=== PATIENT | male | born 1935 | race Caucasian/White ===

== ENCOUNTER 2017-08-08 05:44 | Inpatient (IN) | payer MEDICARE, SELFPAY ==
[2017-08-08] VITALS (36 sets, daily range): BP systolic 85–180; BP diastolic 52–86; PULSE 54–88; RESP 13–25; TEMP 36.7; O2SAT 92–99; BMI 24.3; BMI 23.8
--- NOTE | 2017-08-08 06:01 | EKG12_ITS ---
Test Reason : CP Blood Pressure : / mmHG Vent. Rate : 056 BPM Atrial Rate : 056 BPM P-R Int : 186 ms QRS Dur : 090 ms QT Int : 494 ms P-R-T Axes : 032 -18 -21 degrees QTc Int : 476 ms Sinus bradycardia Nonspecific ST abnormality Abnormal ECG Confirmed by VIRGINIA FERNANDEZ ([id number]), content editor DIONTE FIELDS ([id number] on 08/13/2017 2:52:11 PM Referred By: GABRIEL Confirmed By:VIRGINIA FERNANDEZ
[2017-08-08] MEDS: Morphine 4 MG/ML Syringe IV (06:06)
[2017-08-08 06:10] LABS: Absolute Lymphocyte Count 1.38 X10^3/ul (0.83-4.51); Basophil# 0.02 X10^3/uL; Basophil% 0.5 % (0-1); Eosinophil# 0.19 X10^3/uL; Eosinophils% 4.6 % (0-5); Hematocrit 36.4 % (40-54); Lymphocyte # 1.38 X10^3/ul (4.0); Lymphocyte % 33.6 % (19-41); Mean Corpuscular Hgb 29.2 pg (27.0-32.0); Mean Corpuscular Volume 88.6 fL (80-94); Mean Platelet Vol. 9.1 fl (6.2-12.0); Monocyte# 0.52 X10^3/uL; Monocyte% 12.7 % (0-10); Neutrophil # 1.99 X10^3/uL (2.7-7.7); Neutrophil % 48.4 % (47-70); Platelet Count 297 K/mm3 (150-450); RBC Distribution Width CV 12.5 % (11.6-14.6); RBC Distribution Width SD 39.7 fl (35.1-43.9); Red Blood Count 4.11 M/mm3 (4.6-6.2); White Blood Count 4.1 K/mm3 (4.4-11.0)
[2017-08-08 06:12] LABS: POSITIVE COUNT NO; POSITIVE DIFFERENTIAL NO; POSITIVE MORPHOLOGY NO
--- NOTE | 2017-08-08 06:20 | RAD_ITS ---
STUDY: X-RAY CHEST REASON FOR EXAM: Male, 81 years old. chest pain this morning that woke him from his sleep TECHNIQUE: Single AP portable view of the chest. COMPARISON: None. FINDINGS: Subsegmental atelectases are noted in the right and left lung bases. There is no demonstrated pleural abnormality. Normal size heart. Normal mediastinum and natali. Normal visualized pulmonary arteries. There is atherosclerotic calcification of the aortic arch with tortuosity. Normal visualized thoracic spine. There is degenerative osteoarthritis of the bilateral shoulders. There is no demonstrated abnormality of the visualized soft tissue structures of the upper abdomen. RAD/Chest 1 View (Portable) IMPRESSION: Degenerative changes, as described above. No demonstrated acute cardiopulmonary process. Electronically Signed: Silvano Shields MD at 7:10 EDT Tel , Service support ,
[2017-08-08 06:24] LABS: Anion Gap 7 (5-15); BUN 20 mg/dL (7-18); BUN/Creat Ratio 20.7 RATIO (10-20); Calcium,Total 8.3 mg/dL (8.5-10.1); Chloride 109 mmol/L (98-107); Creatinine, Serum 0.97 mg/dL (0.70-1.30); EST Glomerular Filtration Rate 80 mL/min (>60); Est Glom Filt Rate - Afr Amer 96 mL/min (>60); Estimated Creatinine Clearance 61.75 ml/min; Glucose 131 mg/dL (74-106); Potassium 3.4 mmol/L (3.5-5.1); Sodium Level 141 mmol/L (136-145)
--- NOTE | 2017-08-08 06:35 | ED.DCSUM_ITS ---
- ER Visit Summary Date of Service: 08/08/17 Chief Complaint: [] Chest pain History of Present Illness: The patient is a 81 M with chest pain for the last hour and a half that woke him up from sleep continuous pressure in the middle of his chest moderate severity relieved by nitroglycerin ?3 given by paramedics. Also given aspirin by paramedics. Associated with some mild diaphoresis. No recent stress test. He had 3 stents placed approximately 10 years ago at [facility]. He sees Dr. Tafoya. Physical Examination: Vital signs reviewed General: Well-nourished well-developed Head: Normocephalic atraumatic Eyes: Pupils equal round and reactive to light extraocular movements intact ENT: TMs clear no hemotympanum no trauma Neck: Nontender full range of motion Cardiovascular: Regular rate rhythm no murmurs normal S1-S2 Respiratory: No distress clear to auscultation bilaterally chest nontender Abdomen: Soft nontender nondistended normal bowel sounds no masses Back: Nontender no CVA tenderness Extremities: Nontender active range of motion ?4 extremities no trauma Skin: Normal color no trauma Neuro alert oriented cranial nerves II through XII intact normal strength sensation reflexes Test Results: [] Emergency Department Course and Treatment: [] EKG shows sinus rhythm at a rate of 56. T-wave inversion inferior lead III and aVF. No acute STEMI. This is changed from previous. CBC normal except white count 4.1. Hemoglobin 12.0. Chemistries normal except potassium 3.4. Chloride 109. Troponin 0 0.03. Chest x-ray showed nothing acute. Patient given morphine IV. Discussed with Dr. Mcgregor fax the EKGs initially. At this time no evidence of STEMI. I feel the patient should be admitted. Will forward to the ER to see the patient. At this time we gave another dose of fentanyl for pain and also Brilinta. At this time patient likely has unstable angina. He is going to take the patient to the [facility]. Will discuss with the hospitalist. Treatment Plan: [] Disposition: [] Impression: [] UnStable angina This note was generated with [employer] dictation software. It may contain incorrect words, spelling, and punctuation that were not noted in review of the chart prior to signing ED Disposition - Plan for ED Patient: Chief Complaint: Chest Pain Referrals: Adrian Galeana MD [Primary Care Provider] -
[2017-08-08] MEDS: fentaNYL 100 MCG/2 ML Ampul 50 MCG IV (06:44)
[2017-08-08] MEDS: TICAGRELOR 90 MG TABLET 180 MG PO (06:47)
--- NOTE | 2017-08-08 06:47 | PCM.HP.STD ---
Problem List (1) Unstable angina Status: Acute (2) Asthma Status: Chronic Qualifiers: Asthma persistence: unspecified Asthma complication type: unspecified (3) BPH (benign prostatic hyperplasia) Status: Chronic Qualifiers: Lower urinary tract symptom presence: unspecified whether lower urinary tract symptoms present Qualified Code(s): N40.0 - Benign prostatic hyperplasia without lower urinary tract symptoms (4) CAD (coronary artery disease) Status: Chronic Qualifiers: Coronary Disease-Associated Artery/Lesion type: unspecified vessel or lesion type [place] vs. transplanted heart: unspecified whether [place] or transplanted heart Associated angina: angina presence unspecified Qualified Code(s): I25.10 - Atherosclerotic heart disease of [place] coronary artery without angina pectoris Comment: stents (5) HTN (hypertension) Status: Chronic Qualifiers: Hypertension type: essential hypertension Qualified Code(s): I10 - Essential (primary) hypertension (6) HLD (hyperlipidemia) Status: Chronic Qualifiers: Hyperlipidemia type: unspecified Qualified Code(s): E78.5 - Hyperlipidemia, unspecified (7) Allergic rhinitis Status: Chronic Qualifiers: Allergic rhinitis trigger: unspecified Allergic rhinitis seasonality: unspecified seasonality Qualified Code(s): J30.9 - Allergic rhinitis, unspecified History of Present Illness Date of Admission: 08/08/17 Chief Complaint: Chest pain The patient is a 81 y/o M w/ PMHx: Asthma, BPH, CAD s/p PCI x 3 (PCI x 2 2005 and PCI x 2 2013) following w/ Dr. Bowman, HTN, HLD, Allergic Rhinitis who presents to the [facility] ED on 08/08/17 with onset of chest pressure and pain to the substernal region without radiation, awakening him from sleep, rated 7 out of 10 initially with associated diaphoresis with improvement per EMS and ED treatment to 5 out of 10 upon evaluation. In the emergency room workup included T 98, heart rate 58, BP 108/70, respiratory rate 17, 92% on room air, CBC with WBC 4.1, hemoglobin 12, platelets 297 with increased mono percent otherwise unremarkable, BMP with calcium 3.4, chloride 109, BUN/creatinine 20/0.97, glucose 131, trop 0.03, EKG with new T-wave inversions in the inferior leads, chest x-ray unremarkable. In the emergency room given findings cardiology consulted and requested administration of Brilinta loading dose in addition to fentanyl for pain secondary to lower blood pressure. Patient proceeded from the emergency room to the cardiac catheterization lab remarkable for patent previously placed stents in the LAD and left circumflex artery with severe diffuse disease of his small second diagonal vessel and ostial 90% posterior lateral right coronary artery stenosis with immediate PCI intervention successful PTCA/BS of the right posterior AV branch, successful PCI with PTCA to the ostial PL branch of RCA, successful PTCA/SKYE of the proximal LCx. Following intervention patient transitioned to the intensive care unit. Past Medical History Past Medical History (Chronic Problems): Chronic Problems HTN (hypertension) (Chronic) HLD (hyperlipidemia) (Chronic) Allergic rhinitis (Chronic) Asthma (Chronic) BPH (benign prostatic hyperplasia) (Chronic) CAD (coronary artery disease) (Chronic) stents Allergies Penicillins Allergy (Verified 08/08/17 05:45) Hives ANTI Adverse Reaction (Uncoded 08/08/17 05:45) Unknown D/T PROSTATE PROBLEMS, ADVISED NOT TO USE ANTIHISTAMINES Home Medications: Ambulatory Orders Medication Instructions Recorded Aspirin [Aspirin, Baby] 81 mg PO DAILY@0800 06/07/13 Metoprolol Tartrate [Lopressor 12.5 mg PO BID 06/07/13 (beta christiana)] Simvastatin [Zocor] 10 mg PO QHS 06/07/13 Acetaminophen [Tylenol] 500 mg PO LUNCH 07/23/13 Nitroglycerin [Nitrostat] 0.4 mg SUBLINGUAL Q5M PRN 07/23/13 Psyllium [Metamucil] 1 packet PO DAILY 07/23/13 Fluticasone Propionate [Flonase 1 spray NS QHS 11/11/14 Allergy Relief] Acetaminophen [Tylenol Extra 1,000 mg PO BREAKFAST 08/08/17 Strength] Acetaminophen [Tylenol Extra 1,000 mg PO DINNER 08/08/17 Strength] Acetaminophen [Tylenol Extra 500 mg PO QHS 08/08/17 Strength] Finasteride [Proscar] 5 mg PO DAILY 08/08/17 Omeprazole [Omeprazole] 20 mg PO DAILY 08/08/17 Surgical History: TURP, - - coronary stents X2 Psychiatric History: No pertinent psych hx Lives: Spouse/ Significant Other Smoking Status: Never smoker Tobacco Use: Non-smoker Alcohol: Occasional Drugs: None - *Family History Maternal History Items: - - Patient is a maternal family history of heart disease. Paternal History Items: Unknown Review of Systems Constitutional: Reports: Fatigue. Denies: Chills, Fever, Weight Change HEENT: Denies: Head Aches, Sinus Congestion, Sinus Drainage Cardiovascular: Reports: Chest Pain, Chest Pressure, Chest Tightness, Heaviness. Denies: Light Headedness, Orthopnea, Palpitations, Syncope Respiratory: Denies: Cough, Shortness of Breath, Shortness of breath at rest, Shortness of breath upon exertion, Sputum production Gastrointestinal: Denies: Abdominal Pain, Nausea, Vomiting Genitourinary: Denies: Dysuria Musculoskeletal: Denies: Joint Pain, Joint Tenderness Skin: Denies: Rash, Wounds Neurological: Denies: Numbness, Tingling, Focal weakness Psychiatric: Denies: Anxiety, Depression, Homicidal Ideations, Suicidal Ideations Hematologic/ Lymphatic: Denies: Easy Bruising, Easy Bleeding VTE Information - Inpt Only VTE Present on Admission: No VTE Mechan Device Prophylaxis: SCD's VTE Pharm Prophylaxis ordered?: Yes Patient Problems: Active and Suspected Problems Unstable angina (Acute) Subjective: Seated upright in the ED bed, moderately uncomfortable appearing, notes still 5 out of 10 chest pressure and discomfort. Objective: Physical Examination: General: awake, alert, oriented x 3 and cooperative, seated upright in the ED bed in no apparent distress, moderately uncomfortable appearing, fatigued. Skin: normal color, turgor, no icterus, cyanosis. HEENT: AT/NC, EOMI, PERRLA, mildly dry MM, no carotid bruits or JVD noted. Lungs: CTA bilaterally, moderate effort, mild decrease BL bases, no rales, ronchi or wheezing. Heart: Regular rate and rhythm; no gallop, rub audible. Abdomen: soft, NTTP, ND, normal BS, no HSM. Extremities: no cyanosis, clubbing, or edema. Neurological: patient awake, alert, oriented x 3; cognitive function intact; pupils equally reactive to light and accomodation; cranial nerves II-XII grossly normal, moving all 4 extremities, no focal deficits, strength moderately globally decreased secondary to acute presentation. Psychiatric: affect appears normal, no acute evidence of depressive or anxiety feelings. - Physical Exam Vital Signs Temp Pulse Resp BP Pulse Ox 98.0 F 58 L 17 108/70 98 08/08/17 05:47 08/08/17 05:47 08/08/17 05:47 08/08/17 05:47 08/08/17 06:10 Oxygen Flow Rate (L/min) 2 Oxygen Delivery Method Nasal Cannula Weight: 164 lb 10.965 oz Body Mass Index (BMI) 24.3 Laboratory Tests Past 24 Hrs 08/08/17 08/08/17 05:50 05:50 WBC 4.1 L RBC 4.11 L Hgb 12.0 L Hct 36.4 L MCV 88.6 MCH 29.2 MCHC 33.0 RDW 12.5 RDW Differential 39.7 Plt Count 297 MPV 9.1 Immature Gran % (Auto) 0.200 Neut % (Auto) 48.4 Lymph % (Auto) 33.6 [place] % (Auto) 12.7 H Eos % (Auto) 4.6 Baso % (Auto) 0.5 Absolute Neuts (auto) 2.0 Absolute Lymphs (auto) 1.38 Total Counted Not Reportable Sodium 141 Potassium 3.4 L Chloride 109 H Carbon Dioxide 25.0 Anion Gap 7 BUN 20 H Creatinine 0.97 Estim Creat Clear Calc 61.75 Est GFR (MDRD) Af Amer 96 Est GFR (MDRD) Non-Af 80 BUN/Creatinine Ratio 20.7 H Glucose 131 H Calcium 8.3 L Troponin I 0.03 Assessment/Plan Active and Suspected Problems Unstable angina (Acute) The patient is a 81 y/o M w/ PMHx: Asthma, BPH, CAD s/p PCI x 3 (PCI x 2 2005 and PCI x 2 2013) following w/ Dr. Bowman, HTN, HLD, Allergic Rhinitis who presents to the [facility] ED on 08/08/17 with onset of chest pressure and pain to the substernal region without radiation, awakening him from sleep, rated 7 out of 10 initially with associated diaphoresis with improvement per EMS and ED treatment to 5 out of 10 upon evaluation. (1) Chest Pain secondary to Unstable Angina, Acute Coronary Syndrome w/ severe diffuse disease of the small second diagonal vessel and ostial posterior lateral right coronary artery: In the emergency room given findings cardiology consulted and requested administration of Brilinta loading dose in addition to fentanyl for pain secondary to lower blood pressure. Patient proceeded from the emergency room to the cardiac catheterization lab remarkable for patent previously placed stents in the LAD and left circumflex artery with severe diffuse disease of his small second diagonal vessel and ostial 90% posterior lateral right coronary artery stenosis with immediate PCI intervention successful PTCA/BS of the right posterior AV branch, successful PCI with PTCA to the ostial PL branch of RCA, successful PTCA/SKYE of the proximal LCx. Following intervention patient transitioned to the intensive, will maintain on a monitored bed to assure no acute myocardial infarction with serial cardiac enzymes and EKGs. Will obtain ECHO. Will continue medical therapy w/ indefinite aspirin, brillinta x 12 months, outpatient cardiac rehabilitation and post interventional care. Mag level pending. FLP in AM. Changed to high dose statin. ASA, NG, morphine. (2) CAD: s/p CAD s/p PCI x 3 w/ PCI x 2 2005 and PCI x 2 2013, following w/ Dr. Bowman, maintain on home asa, added brillinta, increased statin, continued BB. (3) Chronic Asthma w/ Allergic Rhinitis: Maintain on home regimen fluticasone, PRN albuterol, HOB, IS parameters. (4) Hypertension: Continue home regimen including prolonged, add low-dose DUY inhibitor if necessary, PRN hydralazine. (5) Hyperlipidemia: We will change to higher dose statin therapy given current presentation, FLP in AM. (6) BPH: s/p TURP history, not on regimen, if needed may add flomax. (7) DVT Prophylaxis: SCDs, recent heparin load, brillinta load. Code Visit Inpatient E&M: 05229 Init Hosp L3
--- NOTE | 2017-08-08 06:47 | PCM.CONS.C ---
Reason for Consult Date of Consultation: 08/08/17 Reason for Consultation: Chest discomfort. History of Present Illness: The patient is a 81 year old M with a history of known coronary artery disease and hyperlipidemia probable hypertension patient previously been seen by Dr. Powers of the [facility]. He says that he woke up this morning at about 4:00 with chest discomfort which was in his throat. He called the emergency medical squad and they give him 4 baby aspirin and then brought him to the emergency room. I was called at about 615 to look at an EKG. The patient was still noted to be having mild chest discomfort at that time. He says that he did not break out in a sweat no nausea no dizziness and no palpitations. The chest discomfort was described as a heaviness. He has not previously been on antiplatelet medication. He was seen in the emergency room by me and was noted to have minimal to no chest discomfort. A decision was made based on the EKG as well as his clinical findings to treat him as an acute coronary syndrome. He says that he has received 4 stents in the past at [facility]. [] Past Medical History Allergies/Adverse Reactions: Allergies Penicillins Allergy (Verified 08/08/17 05:45) Hives ANTI Adverse Reaction (Uncoded 08/08/17 05:45) Unknown D/T PROSTATE PROBLEMS, ADVISED NOT TO USE ANTIHISTAMINES Home Medications: Ambulatory Orders Medication Instructions Recorded Aspirin [Aspirin, Baby] 81 mg PO DAILY@0800 06/07/13 Metoprolol Tartrate [Lopressor 12.5 mg PO BID 06/07/13 (beta christiana)] Simvastatin [Zocor] 10 mg PO QHS 06/07/13 Acetaminophen [Tylenol] 500 mg PO 4X/DAY 07/23/13 Nitroglycerin [Nitrostat] 0.4 mg SUBLINGUAL Q5M PRN 07/23/13 Psyllium [Metamucil] 1 packet PO DAILY 07/23/13 Fluticasone Propionate [Flonase 1 spray NS QHS 11/11/14 Allergy Relief] Past Medical History (Chronic Problems): Chronic Problems Asthma (Chronic) BPH (benign prostatic hyperplasia) (Chronic) CAD (coronary artery disease) (Chronic) stents Surgical History: TURP, - - coronary stents X2 Smoking Status: Never smoker Alcohol: None Drugs: None Review of Systems - Review of Systems General: Denies: Fever, Night Sweats, Fatigue Cardiovascular: Reports: Chest Discomfort at Rest, Chest Pressure, Chest Tightness. Denies: Chest Discomfort, Shortness of Breath, Orthopnea, PND, Peripheral Edema, Palpitations, Lightheadedness, Dizziness, Near Syncope, Syncope Respiratory: Denies: Cough, Sputum Production, Hemoptysis Gastrointestinal: Denies: Hematemesis, Hematochezia, Melena Genitourinary: Denies: Dysuria, Hematuria Skin: Denies: Rash Subjectve: Patient seen and evaluated pleasant gentleman in no distress Objective: Vital Signs Temp Pulse Resp BP Pulse Ox 98.0 F 58 L 17 108/70 98 08/08/17 05:47 08/08/17 05:47 08/08/17 05:47 08/08/17 05:47 08/08/17 06:10 Oxygen Flow Rate (L/min) 2 Oxygen Delivery Method Nasal Cannula Weight: 164 lb 10.965 oz Body Mass Index (BMI) 24.3 General: Awake, Alert, Oriented x 3 HEENT: PERRL, EOMI, Sclera Non Icteric Neck: Supple, Good ROM, No Lymph Node Enlargement Lungs: Clear to auscultation Cardiovascular: Regular Rhythm, Normal S1, Normal S2, No Murmurs, No Rubs, No Gallops Vascular: No Carotid Bruits, Normal Femoral Pulses, Normal Radial Pulses, Normal Dorsalis Pedal Pulse, Normal Posterior Tibial Pulses Abdomen: Bowel Sounds Present, Soft, Non Tender, No HSM, No Organomegaly Extremities: No Cyanosis, No Clubbing, No edema Neurological: No Focal Motor or Sensory Deficit 08/08/17 05:50: WBC 4.1 L, RBC 4.11 L, Hgb 12.0 L, Hct 36.4 L, MCV 88.6, MCH 29.2, MCHC 33.0, RDW 12.5, RDW Differential 39.7, Plt Count 297, MPV 9.1, Immature Gran % (Auto) 0.200, Neut % (Auto) 48.4, Lymph % (Auto) 33.6, [place] % (Auto) 12.7 H, Eos % (Auto) 4.6, Baso % (Auto) 0.5, Absolute Neuts (auto) 2.0, Total Counted Not Reportable 08/08/17 05:50: Sodium 141, Potassium 3.4 L, Chloride 109 H, Carbon Dioxide 25.0, Anion Gap 7, BUN 20 H, Creatinine 0.97, Est GFR (MDRD) Af Amer 96, Est GFR (MDRD) Non-Af 80, BUN/Creatinine Ratio 20.7 H, Glucose 131 H, Calcium 8.3 L, Troponin I 0.03 Rhythm: EKG: Sinus bradycardia with a rate of [address] depression noted in leads II, III and aVF. Assessment/Plan 1. Acute coronary syndrome unstable angina. Patient presents with chest discomfort and subtle EKG changes with currently minimal troponin elevation and minimal chest discomfort. It appears that this is new onset out suggest that he be treated with aspirin and Brilinta and would recommend urgent cardiac catheterization. I have discussed the above with the patient and his and they understand and agreed to proceed. The emergency room in the [facility] have both been notified and he will be transported to the Cardiothoracic Surgeon as soon as possible. Depending on the findings further recommendations will be made. 2. Hyperlipidemia He will continue on his statin with a high intensity statin. Thank you for allowing me to participate in the care of your patient. Please don't hesitate to call if any issues arise
--- NOTE | 2017-08-08 06:52 | CON.PCM_ITS ---
Reason for Consult Date of Consultation: 08/08/17 Reason for Consultation: Chest discomfort. History of Present Illness: The patient is a 81 year old M with a history of known coronary artery disease and hyperlipidemia probable hypertension patient previously been seen by Dr. Powers of the [facility]. He says that he woke up this morning at about 4:00 with chest discomfort which was in his throat. He called the emergency medical squad and they give him 4 baby aspirin and then brought him to the emergency room. I was called at about 615 to look at an EKG. The patient was still noted to be having mild chest discomfort at that time. He says that he did not break out in a sweat no nausea no dizziness and no palpitations. The chest discomfort was described as a heaviness. He has not previously been on antiplatelet medication. He was seen in the emergency room by me and was noted to have minimal to no chest discomfort. A decision was made based on the EKG as well as his clinical findings to treat him as an acute coronary syndrome. He says that he has received 4 stents in the past at [facility]. [] Past Medical History Allergies/Adverse Reactions: Allergies Penicillins Allergy (Verified 08/08/17 05:45) Hives ANTI Adverse Reaction (Uncoded 08/08/17 05:45) Unknown D/T PROSTATE PROBLEMS, ADVISED NOT TO USE ANTIHISTAMINES Home Medications: Ambulatory Orders Medication Instructions Recorded Aspirin [Aspirin, Baby] 81 mg PO DAILY@0800 06/07/13 Metoprolol Tartrate [Lopressor 12.5 mg PO BID 06/07/13 (beta christiana)] Simvastatin [Zocor] 10 mg PO QHS 06/07/13 Acetaminophen [Tylenol] 500 mg PO 4X/DAY 07/23/13 Nitroglycerin [Nitrostat] 0.4 mg SUBLINGUAL Q5M PRN 07/23/13 Psyllium [Metamucil] 1 packet PO DAILY 07/23/13 Fluticasone Propionate [Flonase 1 spray NS QHS 11/11/14 Allergy Relief] Past Medical History (Chronic Problems): Chronic Problems Asthma (Chronic) BPH (benign prostatic hyperplasia) (Chronic) CAD (coronary artery disease) (Chronic) stents Surgical History: TURP, - - coronary stents X2 Smoking Status: Never smoker Alcohol: None Drugs: None Review of Systems - Review of Systems General: Denies: Fever, Night Sweats, Fatigue Cardiovascular: Reports: Chest Discomfort at Rest, Chest Pressure, Chest Tightness. Denies: Chest Discomfort, Shortness of Breath, Orthopnea, PND, Peripheral Edema, Palpitations, Lightheadedness, Dizziness, Near Syncope, Syncope Respiratory: Denies: Cough, Sputum Production, Hemoptysis Gastrointestinal: Denies: Hematemesis, Hematochezia, Melena Genitourinary: Denies: Dysuria, Hematuria Skin: Denies: Rash Subjectve: Patient seen and evaluated pleasant gentleman in no distress Objective: Vital Signs Temp Pulse Resp BP Pulse Ox 98.0 F 58 L 17 108/70 98 08/08/17 05:47 08/08/17 05:47 08/08/17 05:47 08/08/17 05:47 08/08/17 06:10 Oxygen Flow Rate (L/min) 2 Oxygen Delivery Method Nasal Cannula Weight: 164 lb 10.965 oz Body Mass Index (BMI) 24.3 General: Awake, Alert, Oriented x 3 HEENT: PERRL, EOMI, Sclera Non Icteric Neck: Supple, Good ROM, No Lymph Node Enlargement Lungs: Clear to auscultation Cardiovascular: Regular Rhythm, Normal S1, Normal S2, No Murmurs, No Rubs, No Gallops Vascular: No Carotid Bruits, Normal Femoral Pulses, Normal Radial Pulses, Normal Dorsalis Pedal Pulse, Normal Posterior Tibial Pulses Abdomen: Bowel Sounds Present, Soft, Non Tender, No HSM, No Organomegaly Extremities: No Cyanosis, No Clubbing, No edema Neurological: No Focal Motor or Sensory Deficit 08/08/17 05:50: WBC 4.1 L, RBC 4.11 L, Hgb 12.0 L, Hct 36.4 L, MCV 88.6, MCH 29.2, MCHC 33.0, RDW 12.5, RDW Differential 39.7, Plt Count 297, MPV 9.1, Immature Gran % (Auto) 0.200, Neut % (Auto) 48.4, Lymph % (Auto) 33.6, [place] % ( Auto) 12.7 H, Eos % (Auto) 4.6, Baso % (Auto) 0.5, Absolute Neuts (auto) 2.0, Total Counted Not Reportable 08/08/17 05:50: Sodium 141, Potassium 3.4 L, Chloride 109 H, Carbon Dioxide 25.0 , Anion Gap 7, BUN 20 H, Creatinine 0.97, Est GFR (MDRD) Af Amer 96, Est GFR ( MDRD) Non-Af 80, BUN/Creatinine Ratio 20.7 H, Glucose 131 H, Calcium 8.3 L, Troponin I 0.03 Rhythm: EKG: Sinus bradycardia with a rate of [address] depression noted in leads II , III and aVF. Assessment/Plan 1. Acute coronary syndrome unstable angina. Patient presents with chest discomfort and subtle EKG changes with currently minimal troponin elevation and minimal chest discomfort. It appears that this is new onset out suggest that he be treated with aspirin and Brilinta and would recommend urgent cardiac catheterization. I have discussed the above with the patient and his and they understand and agreed to proceed. The emergency room in the [facility] have both been notified and he will be transported to the [facility] as soon as possible. Depending on the findings further recommendations will be made. 2. Hyperlipidemia He will continue on his statin with a high intensity statin. Thank you for allowing me to participate in the care of your patient. Please don't hesitate to call if any issues arise
--- NOTE | 2017-08-08 06:56 | NURSING ---
VERBAL REPORT GIVEN TO ASHLEY BABB FROM THE DIRECT SERVICE PROFESSIONAL FOR THIS PATIENT PRIOR TO LEAVING.
--- NOTE | 2017-08-08 07:03 | ECHOD_ITS ---
Reason For Study: CAD/ASHD Procedure This was a 2D Doppler, Color Flow transthoracic echocardiogram. The study was technically difficult. Due to respiratory interference. Exam performed portable in patient room. Left Ventricle Normal size and thickness. The estimated ejection fraction is 60 %. Stage 1 diastolic dysfunction. Mid-Posterior: Mildly hypokinetic. Lateral-Basal: Mildly hypokinetic. Right Ventricle Normal size and thickness. Normal systolic function. Atria Normal left atrium. Normal right atrium. Normal atrial septum. Mitral Valve The mitral valve is structurally normal. No prolapse or stenosis seen. Trivial mitral valve insufficiency. Tricuspid Valve Normal tricuspid valve. Trivial tricuspid valve insufficiency. Right ventricular systolic pressure estimated to be 29 mmHg. Aortic Valve Trisinus/trileaflet aortic valve. Pulmonic Valve Normal pulmonic valve. Great Vessels Normal aortic root. Normal arch. Normal inferior vena cava. Inferior vena cava collapse with sniff. Pericardium/Pleural No pericardial effusion. MMode/2D Measurements & Calculations LVIDd: 4.8 cm IVSd: 0.76 cm Ao root diam: 3.4 cm LVIDs: 3.4 cm LVPWd: 1.0 cm LA dimension: 3.6 cm RVDd: 3.1 cm FS: 28.9 % LAV(MOD-bp): 51.0 ml LA A4 area: 16.5 cm2 RA A4 area: 11.7 cm2 LAV(MOD-bp) Indexed: 26.9 ml/m2 LAV(MOD-sp2): 52.3 ml LAV(MOD-sp4): 46.3 ml Doppler Measurements & Calculations MV E max tani: 74.0 cm/sec Lat Peak E' Tani: 10.8 cm/sec Med Peak E' Tani: 8.5 cm/sec MV A max tani: 86.9 cm/sec E/E' lat: 6.8 E/E' med: 8.7 MV E/A: 0.85 Ao V2 max: 111.0 cm/sec LV V1 max: 99.3 cm/sec PA V2 max: 104.1 cm/sec Ao max P.9 mmHg LV V1 max P.9 mmHg TR max tani: 244.6 cm/sec TR max P.9 mmHg Interpretation Summary The estimated ejection fraction is 60 %. Mid-Posterior: Mildly hypokinetic Lateral-Basal: Mildly hypokinetic Stage 1 diastolic dysfunction. Trivial mitral valve insufficiency. Trivial tricuspid valve insufficiency. Right ventricular systolic pressure estimated to be 29 mmHg. There is no comparison study available. Ordering Physician: Elana De Leon Referring Physician: Adrian Galeana M.D. Performed By: Ashleigh Guzman RDCS, RVT
--- NOTE | 2017-08-08 07:48 | CL.D_ITS ---
Patient Name: CHENCHO DONOVAN Study Date: 08/08/2017 Performing: Alex Mcgregor MD Ht: 68.89 inches 175 cm : 1935 Wt: 165.35 lbs 75 kg Age: 81 Gender: male BSA: 1.9 Amended PROCEDURE(S) PERFORMED [id number]/[id number]/LV CLINICAL PROFILE AND INDICATIONS Indications: ACS <= 24 hrs Heart Failure: None Stress/Imaging Stress/Image Study Performed: No Angina Classification Anginal Classification w/in 2 Weeks: CCS III CAD Presentations: Unstable angina. CONCLUSIONS Previously placed patent stents in the LAD and left circumflex artery with severe diffuse disease of his small second diagonal vessel and ostial 90% posterior lateral right coronary artery stenosis RECOMMENDATIONS Referred for immediate PCI DESCRIPTION OF PROCEDURE The patient arrived to the procedure lab. The risks and benefits of the procedure as well as a full d escription of our services here and current unavailability of surgical backup were fully explained to the patient and/or their significant other prior to the catheterization. The Timeout was completed, verifying the correct patient and procedure. The patient's procedural site was prepped and draped in the usual fashion. Local anesthetic was given subcutaneously to right groin region with Lidocaine 2%. Using a modified Seldinger technique, arterial access was obtained via the right femoral artery, a 5 Fr sheath was inserted. Left Coronary Artery selective angiography was performed in multiple views u sing a 5 Fr. JL 5 catheter. Right Coronary Artery selective angiography was then performed in multipl e views using a 5 Fr. 3DRC (Homer) catheter. Left Ventriculography was performed in FARFAN projection using a 5 Fr. Pigtail catheter. LV to AO pullback pressures were then recorded. CORONARY ANGIOGRAPHY DOMINANCE: Right Dominant LEFT HEART ASSESSMENT Left Ventricular Ejection Fraction: by LV Gram 55 % Normal LV wall motion Normal Left Ventricular systolic function LEFT MAIN: Angiographically normal LEFT ANTERIOR DECENDING ARTERY: Previously placed stent is patent DIAGONAL 1: Proximal - Diffuse disease in the small vessel DIAGONAL 2: Proximal - Diffuse disease in the small vessel CIRCUMFLEX ARTERY: Previously placed stent is patent RIGHT CORONARY ARTERY: Mild luminal irregularities RT PLV: Ostial 90% stenosis % Stenosis COMPLICATIONS PROCEDURE MEDICATIONS Oxygen: 2 L/min via nasal cannula SUMMARY OF HEMODYNAMIC DATA Time AIR REST ECG 07:10:10 AO 99/44 (67) SA 07:23:21 LV 93/15, 17 07:34:28 LV 100/2, 12 07:34:56 LV 99/3, 15 07:36:04 LVp 104/3, 14 07:36:11 AO 107/40 (66) 07:36:17 Signed By Alex Mcgregor MD On 08/08/2017 07:47:38 Alex Mcgregor MD
[2017-08-08 09:39] LABS: Magnesium 2.3 mg/dL (1.6-2.6)
--- NOTE | 2017-08-08 09:39 | CL.I_ITS ---
Patient Name: CHENCHO DONOVAN Study Date: 08/08/2017 Performing: Zacarias Canchola MD Ht: 68.89 inches 175 cm : 1935 Wt: 165.35 lbs 75 kg Age: 81 Gender: male BSA: 1.9 Amended PROCEDURE(S) PERFORMED [id number] W OR WO PTCA, SINGLE CORONARY ARTERY [id number] W OR WO PTCA, SINGLE CORONARY ARTERY [id number], EACH ADD'L CORONARY ART, SAME MAJOR [id number], CORONARY OR GRAFT, INITIAL VESSEL CLINICAL PROFILE AND CO-MORBIDITIES Indications: ACS <= 24 hrs, ACS <= 24 hrs, New Onset Angina <= 2 months, Stable Known CAD Heart Failure: None Stress/Imaging Stress/Image Study Performed: No Stress/Image Study Performed: No Angina Classification Anginal Classification w/in 2 Weeks: CCS III CAD Presentations: Unstable angina. Unstable angina. Comorbidities/Risk Factors: Hypertension Dyslipidemia Prior PCI CONCLUSIONS Successful PTCA/SKYE of the of Right posterior AV branch with a 2.5 x 16 Promus Synergy, post dilated proximally with a 3.0 x 8 NC Balloon; 75%-->0%, no dissection. Successful PCI with PTCA to the ostial PL branch of RCA with a 1.5 x 8 Balloon; 85%-->10%, no dissect ion. Successful PTCA/SKYE of the proximal LCX after FFR evaluation with FFR of 0.66, utilizing a 3.0 x 12 P romus Synergy, post dilated with a 3.0 x 8 NC Balloon; 75%-->0%, no dissection. Pt had identical and worsening chest and jaw pain while balloon inflation of PL and PAV branches. RECOMMENDATIONS Highly recommend quitting all tobacco products Follow up with primary service order taker Risk factor modification ASA Indefinitley Plavix for at least 12 months Routine post interventional care Refer for Outpatient Cardiac Rehab Manual sheath removal per protocol Follow up with Dr. Mcgregor DESCRIPTION OF PROCEDURE The patient arrived to the procedure lab. The risks and benefits of the procedure as well as a full d escription of our services here and current unavailability of surgical backup were fully explained to the patient and/or their significant other prior to the catheterization. The Timeout was completed, verifying the correct patient and procedure. The patient's procedural site was prepped and draped in the usual fashion. Local anesthetic was given subcutaneously to right groin region with Lidocaine 2% Using a modified Seldinger technique,arterial access was obtained via the right femoral artery, a 5Fr sheath was inserted. Left Coronary Artery selective angiography was performed in multiple views usin g a 5 Fr. JL 5 catheter. Right Coronary Artery selective angiography was then performed in multiple v iews using a 5 Fr. 3DRC (Homer) catheter. Left Ventriculography was performed in FARFAN projection us ing a 5 Fr. Pigtail catheter. LV to AO pullback pressures were then recorded.The images were reviewed and options discussed. A decision was then made to proceed with an Intervention, IVUS or other adjun ct procedure. Arterial sheath was exchanged for a 6 Fr Sheath Angiogram performed pre balloon dilatation. hs 2 medt ronic Guide catheter was inserted and engaged into the RCA. bmw Guide wire was advanced to the RCA pl branch bmw Guide wire was advanced to the 2nd RPL. emerge 1.5 x 8 Balloon catheter was advanced acr oss lesion in the posterior descending, ostial. PTCA balloon inflated at 8 atms for 14 secs PTCA ball oon inflated at 10 atms for 18 secs PTCA balloon inflated at 12 atms for 35 secs Angiogram performed post balloon dilatation. synergy 2.5 x 16 Drug Eluting stent was advanced across the lesion in the ostial second pl Angiogram performed post stent deployment. nc emerge 3.00 x 8 Balloon catheter was a dvanced across lesion in the 1st pl branch ostial emerge 1.5 x 8 Balloon catheter was reinserted ove r first lesion in first pl branch PTCA balloon inflated at 10 atms for 25 secs PTCA balloon inflated at 10 atms for 25 secs PTCA balloon inflated at 12 atms for 16 secs Angiogram performed post balloon dilatation. Arterial sheath was exchanged for a 6 Fr Sheath 55 cm ebu 3.75 Guide catheter was inserte d and engaged into the LCA. The FFR/iFR wire was inserted Adenosine was then given per protocol Press ures and FFR/iFR were then recorded. FFR RatioBaseline: .94 FFR Ratio post Adenosine: .66 The FFR/iFR wire was then removed Angiogram performed pre stent deployment. eb u 3.75 Guide catheter was inserte d and engaged into the LCA. bmw Guide wire was advanced to the Circumflex. synergy 3.00 x12 Balloon c atheter was advanced across lesion in the circumflex, mid. Angiogram performed post stent deployment. nc emerge 3.00 x 8 Balloon catheter was inserted post stent. Angiogram performed post stent deployme nt. Arterial sheath was exchanged for a 6 Fr Sheath 11 cm. . The arterial sheath was sutured in plac e and capped. INTERVENTION INFORMATION LESION SITE: RPL (1st) Lesion Complexity: Non-High/Non-C, lesion at bifurcation: Yes, lesion length: 8 mm, culprit lesion: N o Pre Stenosis: 85 % Pre intervention BRAYDON flow: 3 PROCEDURE: Balloon Angioplasty Post Stenosis: 10 % Post intervention BRAYDON flow: 3 Lesion Devices: Brady AMAYA MR 1.50x08 BALLOON LESION SITE: RT PAV (Mid) Lesion Complexity: High/C, lesion at bifurcation: Yes, thrombus present: No, lesion length: 16 mm, cu lprit lesion: Yes Pre Stenosis: 75 % Pre intervention BRAYDON flow: 3 PROCEDURE: Drug Eluting Stent with pre and post dilatation Post Stenosis: 0 % Post intervention BRAYDON flow: 3 Lesion Devices: Brady Terry MR SKYE 2.50x16 LESION SITE: Circumflex (Proximal) Lesion Complexity: Non-High/Non-C, lesion at bifurcation: No, lesion length: 12 mm, culprit lesion: N o Pre Stenosis: 75 % Pre intervention BRAYDON flow: 3 PROCEDURE: Drug Eluting Stent with pre and post dilatation 0 % Post intervention BRAYDON flow: 3 Lesion Devices: Medtronic 6 Fr EBU3.75 100cm Guide Catheter Medtronic 6 Fr EBU3.75 100cm Guide Catheter [place] Coronary FFR Wire Brady Terry MR SKYE 3.00x12 COMPLICATIONS No Complications PROCEDURE MEDICATIONS Oxygen: 2 L/min via nasal cannula Adenosine drip for FFR 630 ml IV for 11.1cc's infused @ 08/08/2017 09:08:17 Heparin 6000 unit(s) IV 08/08/2017 08:30:08 Nitro 200 mcg IC 08/08/2017 08:32:02 Nitro 200 mcg IC 08/08/2017 08:32:02 Nitro 200 mcg IC 08/08/2017 08:45:03 SUMMARY OF HEMODYNAMIC DATA Time AIR REST ECG 07:10:10 AO 99/44 (67) SA 07:23:21 LV 93/15, 17 07:34:28 LV 100/2, 12 07:34:56 LV 99/3, 15 07:36:04 LVp 104/3, 14 07:36:11 AOp 107/40 (66) 07:36:17 AO 64/37 (49) 08:37:11 Signed By Zacarias Canchola MD On 08/08/2017 9:38:59 AM Zacarias Canchola MD
--- NOTE | 2017-08-08 09:47 | EKG12_ITS ---
Test Reason : AM Blood Pressure : / mmHG Vent. Rate : 066 BPM Atrial Rate : 066 BPM P-R Int : 194 ms QRS Dur : 094 ms QT Int : 432 ms P-R-T Axes : 055 -01 086 degrees QTc Int : 452 ms Normal sinus rhythm Nonspecific T wave abnormality Abnormal ECG When compared with ECG of 08-AUG-2017 10:01, MANUAL COMPARISON REQUIRED, DATA IS UNCONFIRMED Confirmed by VIRGINIA FERNANDEZ ([id number]), city editor DIONTE FIELDS ([id number]) on 08/14/2017 8:51:42 AM Referred By: BINU Confirmed By:VIRGINIA FERNANDEZ
[2017-08-08] MEDS: 0.9% Normal Saline 1,000 ML 150 ML IV (10:00)
[2017-08-08 10:47] LABS: Hematocrit 35.1 % (40-54); Hemoglobin 11.7 g/dl (13.0-16.5); Mean Corp Hgb Conc 33.3 g/gl (32-36); Mean Corpuscular Hgb 29.6 pg (27.0-32.0); Mean Corpuscular Volume 88.9 fL (80-94); Mean Platelet Vol. 9.4 fl (6.2-12.0); Platelet Count 259 K/mm3 (150-450); RBC Distribution Width CV 12.6 % (11.6-14.6); RBC Distribution Width SD 40.6 fl (35.1-43.9); Red Blood Count 3.95 M/mm3 (4.6-6.2); White Blood Count 8.3 K/mm3 (4.4-11.0)
[2017-08-08 10:48] LABS: Scan Indicated on CBC? Y/N NO
[2017-08-08 11:02] LABS: CPK Total, Creatine Kinase 71 U/L (39-308)
[2017-08-08 12:05] LABS: ACT Activated Clotting Time 158 sec (74-137)
[2017-08-08 12:47] LABS: M R Staph aureus DNA By PCR Negative (Negative); Probe Check PASS; Specimen Processing Control PASS
[2017-08-08] MEDS: Metoprolol Tartrate 25 MG Tablet 12.5 MG PO ×2 (15:59→21:42)
[2017-08-08 16:19] LABS: Hematocrit 35.7 % (40-54); Hemoglobin 11.9 g/dl (13.0-16.5); Mean Corp Hgb Conc 33.3 g/gl (32-36); Mean Corpuscular Hgb 29.3 pg (27.0-32.0); Mean Corpuscular Volume 87.9 fL (80-94); Mean Platelet Vol. 9.2 fl (6.2-12.0); Platelet Count 258 K/mm3 (150-450); RBC Distribution Width CV 12.6 % (11.6-14.6); RBC Distribution Width SD 39.7 fl (35.1-43.9); Red Blood Count 4.06 M/mm3 (4.6-6.2); Scan Indicated on CBC? Y/N NO; White Blood Count 5.9 K/mm3 (4.4-11.0)
[2017-08-08 16:55] LABS: CPK Total, Creatine Kinase 403 U/L (39-308)
[2017-08-08] MEDS: Fluticasone 0.05% 1 SPRAY NASAL.SRY NASAL (21:42)
[2017-08-08] MEDS: TICAGRELOR 90 MG TABLET PO (21:42)
[2017-08-08] MEDS: 0.9% NaCl Peripheral Flush Adult/Peds IV (21:43)
[2017-08-08] MEDS: Atorvastatin Calcium 80 MG Tablet PO (21:44)
[2017-08-08 22:16] LABS: Hematocrit 36.5 % (40-54); Mean Corp Hgb Conc 32.9 g/gl (32-36); Mean Corpuscular Hgb 28.9 pg (27.0-32.0); Mean Platelet Vol. 9.2 fl (6.2-12.0); Platelet Count 264 K/mm3 (150-450); RBC Distribution Width CV 12.8 % (11.6-14.6); RBC Distribution Width SD 41.5 fl (35.1-43.9); Red Blood Count 4.15 M/mm3 (4.6-6.2); White Blood Count 8.7 K/mm3 (4.4-11.0)
[2017-08-08 22:17] LABS: Scan Indicated on CBC? Y/N NO
[2017-08-08 22:28] LABS: CPK Total, Creatine Kinase 805 U/L (39-308)
[2017-08-09] VITALS (22 sets, daily range): BP systolic 92–170; BP diastolic 40–86; PULSE 54–98; RESP 13–25; TEMP 36.6–37.1; O2SAT 94–100; BMI 24.3
[2017-08-09] MEDS: Morphine 2 MG/ML Syringe IV ×2 (01:29→06:00)
[2017-08-09] MEDS: 0.9% NaCl Peripheral Flush Adult/Peds IV ×5 (01:30→21:21)
[2017-08-09 04:08] LABS: Hematocrit 36.3 % (40-54); Hemoglobin 12.2 g/dl (13.0-16.5); Mean Corp Hgb Conc 33.6 g/gl (32-36); Mean Corpuscular Hgb 29.6 pg (27.0-32.0); Mean Corpuscular Volume 88.1 fL (80-94); Mean Platelet Vol. 9.3 fl (6.2-12.0); Platelet Count 278 K/mm3 (150-450); RBC Distribution Width CV 12.5 % (11.6-14.6); RBC Distribution Width SD 39.5 fl (35.1-43.9); Red Blood Count 4.12 M/mm3 (4.6-6.2); White Blood Count 10.7 K/mm3 (4.4-11.0)
[2017-08-09 04:09] LABS: Scan Indicated on CBC? Y/N NO
[2017-08-09 04:53] LABS: Anion Gap 7 (5-15); BUN 14 mg/dL (7-18); BUN/Creat Ratio 15.4 RATIO (10-20); Calcium,Total 9.1 mg/dL (8.5-10.1); Chloride 108 mmol/L (98-107); Cholesterol 110 mg/dL (200); Creatinine, Serum 0.91 mg/dL (0.70-1.30); EST Glomerular Filtration Rate 85 mL/min (>60); Est Glom Filt Rate - Afr Amer 103 mL/min (>60); Estimated Creatinine Clearance 65.82 ml/min; Glucose 101 mg/dL (74-106); High Density Lipoprotein 45 mg/dL; Potassium 3.8 mmol/L (3.5-5.1); Sodium Level 141 mmol/L (136-145); Triglycerides 65 mg/dL; Very Low Density Lipoprotein 13 mg/dL (5-40)
[2017-08-09] MEDS: Enoxaparin 40 MG/0.4 ML Syringe SC (06:00)
[2017-08-09] MEDS: hydrALAZINE 20 MG/ML Vial 10 MG IV (06:10)
[2017-08-09 07:15] LABS: ACT Activated Clotting Time 180 sec (74-137)
[2017-08-09 07:15] LABS: ACT Activated Clotting Time 224 sec (74-137)
--- NOTE | 2017-08-09 08:14 | PCM.PN.HOSP ---
Patient Problems: Active and Suspected Problems Unstable angina (Acute) Subjective: Patient overnight with still continued substernal chest discomfort although improved following nitroglycerin and morphine. He states otherwise no acute complaints and eager for discharge to home but understands awaiting cardiology evaluation giving ongoing discomfort. Patient with no events on telemetry. Patient denies fevers, chills, nausea, emesis, abdominal pain or dyspnea. Objective: Physical Examination: General: awake, alert, oriented x 3 and cooperative, seated upright the ICU bedside chair, NAD, in no apparent distress, notes currently improved. Skin: normal color, turgor, no icterus, cyanosis. HEENT: AT/NC, EOMI, PERRLA, MMM. Lungs: CTA bilaterally, moderate effort, mild decrease BL bases, no rales, ronchi or wheezing. Heart: Regular rate and rhythm; no gallop, rub audible. Abdomen: soft, NTTP, ND, normal BS. Extremities: no cyanosis, clubbing, or edema. Neurological: patient awake, alert, oriented x 3; cognitive function intact; pupils equally reactive to light and accomodation; cranial nerves II-XII grossly normal, moving all 4 extremities, no focal deficits, strength improved, mildly to moderately globally decreased. Psychiatric: affect appears normal, no acute evidence of depressive or anxiety feelings. Vitals/I&O's: Vital Signs Temp Pulse Resp BP Pulse Ox 97.9 F 70 22 H 169/71 H 100 08/09/17 00:00 08/09/17 06:10 08/09/17 06:00 08/09/17 06:00 08/09/17 07:00 Oxygen Delivery Method Room Air Weight: 154 lb 5.177 oz Body Mass Index (BMI) 23.8 Intake and Output for Last 24 Hours 08/07/17 08/08/17 08/09/17 23:59 23:59 23:59 Intake Total 1071 / 1071 90 / 90 Output Total 2300 / 2300 850 / 850 Balance -1229 / -1229 -760 / -760 Laboratory Results 08/08/17 10:25: Total Creatine Kinase 71 08/08/17 10:25: WBC 8.3, RBC 3.95 L, Hgb 11.7 L, Hct 35.1 L, MCV 88.9, MCH 29.6, MCHC 33.3, RDW 12.6, RDW Differential 40.6, Plt Count 259, MPV 9.4 08/08/17 10:25: MRSA (PCR) Negative 08/08/17 10:25: Troponin I 0.24 H 08/08/17 11:51: Activated Clotting Time 158 H 08/08/17 16:05: Total Creatine Kinase 403 H 08/08/17 16:05: WBC 5.9, RBC 4.06 L, Hgb 11.9 L, Hct 35.7 L, MCV 87.9, MCH 29.3, MCHC 33.3, RDW 12.6, RDW Differential 39.7, Plt Count 258, MPV 9.2 08/08/17 16:05: Troponin I 5.35 H* 08/08/17 21:35: Total Creatine Kinase 805 H 08/08/17 21:35: WBC 8.7, RBC 4.15 L, Hgb 12.0 L, Hct 36.5 L, MCV 88.0, MCH 28.9, MCHC 32.9, RDW 12.8, RDW Differential 41.5, Plt Count 264, MPV 9.2 08/09/17 04:00: WBC 10.7, RBC 4.12 L, Hgb 12.2 L, Hct 36.3 L, MCV 88.1, MCH 29.6, MCHC 33.6, RDW 12.5, RDW Differential 39.5, Plt Count 278, MPV 9.3 08/09/17 04:00: Sodium 141, Potassium 3.8, Chloride 108 H, Carbon Dioxide 26.0, Anion Gap 7, BUN 14, Creatinine 0.91, Estim Creat Clear Calc 65.82, Est GFR (MDRD) Af Amer 103, Est GFR (MDRD) Non-Af 85, BUN/Creatinine Ratio 15.4, Glucose 101, Calcium 9.1, Triglycerides 65, Cholesterol 110, LDL Cholesterol 52, VLDL Cholesterol 13, HDL Cholesterol 45 08/09/17 04:00: Troponin I 31.50 H* Current Medications Acetaminophen (Tylenol) 650 mg PO Q6H PRN PRN PRN Reason: Non-cardiac pain (mod-severe) Hydrocodone Bitart/Acetaminophen ([place] 5mg-325mg) 1 - 2 tablet PO Q6H PRN PRN PRN Reason: Moderate-severe pain Albuterol Sulfate (Ventolin Aerosols) 2.5 mg INHALATION Q2H PRN PRN PRN Reason: dyspnea, wheezing Aspirin (Aspirin, Baby) 81 mg PO DAILY@0800 [facility] Atorvastatin Calcium (Lipitor) 80 mg PO QHS [facility] Last Admin: 08/08/17 21:44 Dose: 80 mg Atropine Sulfate () 0.5 mg IV UD PRN PRN Reason: HR <50 bpm Diazepam (Valium) 5 mg PO Q6H PRN PRN PRN Reason: BACK SPASMS/ANXIETY Enoxaparin Sodium (Lovenox) 40 mg SC DAILY@0600 [facility] Last Admin: 08/09/17 06:00 Dose: 40 mg Fluticasone Propionate (Flonase Nasal [place]) 1 spray NASAL QHS [facility] Last Admin: 08/08/17 21:42 Dose: 1 spray Heparin Sodium (Beef Lung) (Heparin 500 Unit/5 Ml (100/Ml)) 500 unit IV UD PRN PRN Reason: HEPARIN FLUSH Hydralazine HCl (Apresoline Iv) 10 mg IV Q4H PRN PRN PRN Reason: SBP > 160 Last Admin: 08/09/17 06:10 Dose: 10 mg Lisinopril (Zestril) 5 mg PO DAILY [facility] Metoclopramide HCl (Reglan) 5 mg IV Q6 PRN PRN Reason: NAUSEA/VOMITING Metoprolol Tartrate (Lopressor (Beta Keyur)) 12.5 mg PO BID [facility] Last Admin: 08/08/17 21:42 Dose: 12.5 mg Morphine Sulfate () 1 - 2 mg IV Q4H PRN PRN PRN Reason: PAIN Last Admin: 08/09/17 06:00 Dose: 2 mg Nitroglycerin (Nitrostat) 0.4 mg SUBLINGUAL Q5M PRN PRN Reason: Chest Pain Last Admin: 08/08/17 22:46 Dose: 0.4 mg Ondansetron HCl (Zofran) 4 mg IV Q8H PRN PRN PRN Reason: NAUSEA/VOMITING Psyllium Hydrophilic Mucilloid (Metamucil) 1 packet PO DAILY [facility] Last Admin: 08/08/17 16:21 Dose: Not Given Sodium Chloride () 500 ml IV BOLUS PRN PRN Reason: VASO-VAGAL PROTOCOL Sodium Chloride () 5 - 30 ml IV UD PRN PRN Reason: SALINE FLUSH Last Admin: 08/09/17 06:11 Dose: 10 ml Ticagrelor (Brilinta) 90 mg PO BID [facility] Last Admin: 08/08/17 21:42 Dose: 90 mg Medical Necessity - Tobacco Use Smoking Status: Never smoker Tobacco Use: Non-smoker Assessment/Plan Active and Suspected Problems Unstable angina (Acute) The patient is a 81 y/o M w/ PMHx: Asthma, BPH, CAD s/p PCI x 3 (PCI x 2 2005 and PCI x 2 2013) following w/ Dr. Bowman, HTN, HLD, Allergic Rhinitis who presents to the [facility] ED on 08/08/17 with onset of chest pressure and pain to the substernal region without radiation, awakening him from sleep, rated 7 out of 10 initially with associated diaphoresis with improvement per EMS and ED treatment to 5 out of 10 upon evaluation. (1) Chest Pain secondary to Unstable Angina, Acute Coronary Syndrome w/ severe diffuse disease of the small second diagonal vessel and ostial posterior lateral right coronary artery: In the emergency room given findings cardiology consulted and requested administration of Brilinta loading dose in addition to fentanyl for pain secondary to lower blood pressure. Patient proceeded from the emergency room to the cardiac catheterization lab remarkable for patent previously placed stents in the LAD and left circumflex artery with severe diffuse disease of his small second diagonal vessel and ostial 90% posterior lateral right coronary artery stenosis with immediate PCI intervention successful PTCA/BS of the right posterior AV branch, successful PCI with PTCA to the ostial PL branch of RCA, successful PTCA/SKYE of the proximal LCx. Following intervention patient transitioned to the intensive. Maintained on telemetry, expected trop rise w/ recent intervention/PCI, unremarkable telemetry/EKG, ECHO being obtained now, mag normal, FLP w/ notable elevations with transition to high dose statin. Upon discharge plan including indefinite aspirin, brillinta x 12 months, outpatient cardiac rehabilitation and post interventional care. Overnight elevated BPs, added low dose ACEI, but may consider indur given chest pain complaints, will confer with Dr. Canchola upon his rounding. (2) CAD: s/p CAD s/p PCI x 3 w/ PCI x 2 2005 and PCI x 2 2013, following w/ Dr. Bowman, maintain on home asa, added brillinta, increased statin, continued BB, added low dose ACEI. (3) Chronic Asthma w/ Allergic Rhinitis: Maintain on home regimen fluticasone, PRN albuterol, HOB, IS parameters. (4) Hypertension: Continue home regimen including prolonged, added low dose ACEI, PRN hydralazine. (5) Hyperlipidemia: Elevated findings on FLP, changed to high dose statin. (6) BPH: s/p TURP history, not on regimen, asymptomatic, if needed may add flomax. (7) DVT Prophylaxis: SCDs, lovenox. Code Visit Inpatient E&M: 10850 Subs Hosp L2
--- NOTE | 2017-08-09 08:23 | PN_ITS ---
Patient Problems: Active and Suspected Problems Unstable angina (Acute) Subjective: Patient overnight with still continued substernal chest discomfort although improved following nitroglycerin and morphine. He states otherwise no acute complaints and eager for discharge to home but understands awaiting cardiology evaluation giving ongoing discomfort. Patient with no events on telemetry. Patient denies fevers, chills, nausea, emesis, abdominal pain or dyspnea. Objective: Physical Examination: General: awake, alert, oriented x 3 and cooperative, seated upright the ICU bedside chair, NAD, in no apparent distress, notes currently improved. Skin: normal color, turgor, no icterus, cyanosis. HEENT: AT/NC, EOMI, PERRLA, MMM. Lungs: CTA bilaterally, moderate effort, mild decrease BL bases, no rales, ronchi or wheezing. Heart: Regular rate and rhythm; no gallop, rub audible. Abdomen: soft, NTTP, ND, normal BS. Extremities: no cyanosis, clubbing, or edema. Neurological: patient awake, alert, oriented x 3; cognitive function intact; pupils equally reactive to light and accomodation; cranial nerves II-XII grossly normal, moving all 4 extremities, no focal deficits, strength improved, mildly to moderately globally decreased. Psychiatric: affect appears normal, no acute evidence of depressive or anxiety feelings. Vitals/I&O's: Vital Signs Temp Pulse Resp BP Pulse Ox 97.9 F 70 22 H 169/71 H 100 08/09/17 00:00 08/09/17 06:10 08/09/17 06:00 08/09/17 06:00 08/09/17 07:00 Oxygen Delivery Method Room Air Weight: 154 lb 5.177 oz Body Mass Index (BMI) 23.8 Intake and Output for Last 24 Hours 08/07/17 08/08/17 08/09/17 23:59 23:59 23:59 Intake Total 1071 / 1071 90 / 90 Output Total 2300 / 2300 850 / 850 Balance -1229 / -1229 -760 / -760 Laboratory Results 08/08/17 10:25: Total Creatine Kinase 71 08/08/17 10:25: WBC 8.3, RBC 3.95 L, Hgb 11.7 L, Hct 35.1 L, MCV 88.9, MCH 29.6 , MCHC 33.3, RDW 12.6, RDW Differential 40.6, Plt Count 259, MPV 9.4 08/08/17 10:25: MRSA (PCR) Negative 08/08/17 10:25: Troponin I 0.24 H 08/08/17 11:51: Activated Clotting Time 158 H 08/08/17 16:05: Total Creatine Kinase 403 H 08/08/17 16:05: WBC 5.9, RBC 4.06 L, Hgb 11.9 L, Hct 35.7 L, MCV 87.9, MCH 29.3 , MCHC 33.3, RDW 12.6, RDW Differential 39.7, Plt Count 258, MPV 9.2 08/08/17 16:05: Troponin I 5.35 H* 08/08/17 21:35: Total Creatine Kinase 805 H 08/08/17 21:35: WBC 8.7, RBC 4.15 L, Hgb 12.0 L, Hct 36.5 L, MCV 88.0, MCH 28.9 , MCHC 32.9, RDW 12.8, RDW Differential 41.5, Plt Count 264, MPV 9.2 08/09/17 04:00: WBC 10.7, RBC 4.12 L, Hgb 12.2 L, Hct 36.3 L, MCV 88.1, MCH 29.6 , MCHC 33.6, RDW 12.5, RDW Differential 39.5, Plt Count 278, MPV 9.3 08/09/17 04:00: Sodium 141, Potassium 3.8, Chloride 108 H, Carbon Dioxide 26.0, Anion Gap 7, BUN 14, Creatinine 0.91, Estim Creat Clear Calc 65.82, Est GFR ( MDRD) Af Amer 103, Est GFR (MDRD) Non-Af 85, BUN/Creatinine Ratio 15.4, Glucose 101, Calcium 9.1, Triglycerides 65, Cholesterol 110, LDL Cholesterol 52, VLDL Cholesterol 13, HDL Cholesterol 45 08/09/17 04:00: Troponin I 31.50 H* Current Medications Acetaminophen (Tylenol) 650 mg PO Q6H PRN PRN PRN Reason: Non-cardiac pain (mod-severe) Hydrocodone Bitart/Acetaminophen ([place] 5mg-325mg) 1 - 2 tablet PO Q6H PRN PRN PRN Reason: Moderate-severe pain Albuterol Sulfate (Ventolin Aerosols) 2.5 mg INHALATION Q2H PRN PRN PRN Reason: dyspnea, wheezing Aspirin (Aspirin, Baby) 81 mg PO DAILY@0800 [facility] Atorvastatin Calcium (Lipitor) 80 mg PO QHS [facility] Last Admin: 08/08/17 21:44 Dose: 80 mg Atropine Sulfate () 0.5 mg IV UD PRN PRN Reason: HR <50 bpm Diazepam (Valium) 5 mg PO Q6H PRN PRN PRN Reason: BACK SPASMS/ANXIETY Enoxaparin Sodium (Lovenox) 40 mg SC DAILY@0600 [facility] Last Admin: 08/09/17 06:00 Dose: 40 mg Fluticasone Propionate (Flonase Nasal [place]) 1 spray NASAL QHS [facility] Last Admin: 08/08/17 21:42 Dose: 1 spray Heparin Sodium (Beef Lung) (Heparin 500 Unit/5 Ml (100/Ml)) 500 unit IV UD PRN PRN Reason: HEPARIN FLUSH Hydralazine HCl (Apresoline Iv) 10 mg IV Q4H PRN PRN PRN Reason: SBP > 160 Last Admin: 08/09/17 06:10 Dose: 10 mg Lisinopril (Zestril) 5 mg PO DAILY [facility] Metoclopramide HCl (Reglan) 5 mg IV Q6 PRN PRN Reason: NAUSEA/VOMITING Metoprolol Tartrate (Lopressor (Beta Keyur)) 12.5 mg PO BID [facility] Last Admin: 08/08/17 21:42 Dose: 12.5 mg Morphine Sulfate () 1 - 2 mg IV Q4H PRN PRN PRN Reason: PAIN Last Admin: 08/09/17 06:00 Dose: 2 mg Nitroglycerin (Nitrostat) 0.4 mg SUBLINGUAL Q5M PRN PRN Reason: Chest Pain Last Admin: 08/08/17 22:46 Dose: 0.4 mg Ondansetron HCl (Zofran) 4 mg IV Q8H PRN PRN PRN Reason: NAUSEA/VOMITING Psyllium Hydrophilic Mucilloid (Metamucil) 1 packet PO DAILY [facility] Last Admin: 08/08/17 16:21 Dose: Not Given Sodium Chloride () 500 ml IV BOLUS PRN PRN Reason: VASO-VAGAL PROTOCOL Sodium Chloride () 5 - 30 ml IV UD PRN PRN Reason: SALINE FLUSH Last Admin: 08/09/17 06:11 Dose: 10 ml Ticagrelor (Brilinta) 90 mg PO BID [facility] Last Admin: 08/08/17 21:42 Dose: 90 mg Medical Necessity - Tobacco Use Smoking Status: Never smoker Tobacco Use: Non-smoker Assessment/Plan Active and Suspected Problems Unstable angina (Acute) The patient is a 81 y/o M w/ PMHx: Asthma, BPH, CAD s/p PCI x 3 (PCI x 2 2005 and PCI x 2 2013) following w/ Dr. Bowman, HTN, HLD, Allergic Rhinitis who presents to the [facility] ED on 08/08/17 with onset of chest pressure and pain to the substernal region without radiation, awakening him from sleep, rated 7 out of 10 initially with associated diaphoresis with improvement per EMS and ED treatment to 5 out of 10 upon evaluation. (1) Chest Pain secondary to Unstable Angina, Acute Coronary Syndrome w/ severe diffuse disease of the small second diagonal vessel and ostial posterior lateral right coronary artery: In the emergency room given findings cardiology consulted and requested administration of Brilinta loading dose in addition to fentanyl for pain secondary to lower blood pressure. Patient proceeded from the emergency room to the cardiac catheterization lab remarkable for patent previously placed stents in the LAD and left circumflex artery with severe diffuse disease of his small second diagonal vessel and ostial 90% posterior lateral right coronary artery stenosis with immediate PCI intervention successful PTCA/BS of the right posterior AV branch, successful PCI with PTCA to the ostial PL branch of RCA, successful PTCA/SKYE of the proximal LCx. Following intervention patient transitioned to the intensive. Maintained on telemetry, expected trop rise w/ recent intervention/PCI, unremarkable telemetry /EKG, ECHO being obtained now, mag normal, FLP w/ notable elevations with transition to high dose statin. Upon discharge plan including indefinite aspirin , brillinta x 12 months, outpatient cardiac rehabilitation and post interventional care. Overnight elevated BPs, added low dose ACEI, but may consider indur given chest pain complaints, will confer with Dr. Canchola upon his rounding. (2) CAD: s/p CAD s/p PCI x 3 w/ PCI x 2 2005 and PCI x 2 2013, following w/ Dr. Bowman, maintain on home asa, added brillinta, increased statin, continued BB, added low dose ACEI. (3) Chronic Asthma w/ Allergic Rhinitis: Maintain on home regimen fluticasone, PRN albuterol, HOB, IS parameters. (4) Hypertension: Continue home regimen including prolonged, added low dose ACEI , PRN hydralazine. (5) Hyperlipidemia: Elevated findings on FLP, changed to high dose statin. (6) BPH: s/p TURP history, not on regimen, asymptomatic, if needed may add flomax. (7) DVT Prophylaxis: SCDs, lovenox. Code Visit Inpatient E&M: 98937 Subs Hosp L2
--- NOTE | 2017-08-09 08:51 | CRPHASE1_ITS ---
Patient Data/Charges Information Systems Specialist:: Eloy VALENTINE Risk Factors/Lifestyle Laboratory Values: Cardiac Rehab Phase I Labs Triglycerides 65 mg/dL (-199) 08/09/17 04:00 Cholesterol 110 mg/dL (200) 08/09/17 04:00 LDL Cholesterol 52 mg/dL (0-130) 08/09/17 04:00 HDL Cholesterol 45 mg/dL (40-) 08/09/17 04:00
--- NOTE | 2017-08-09 08:56 | CRPHASE1_ITS ---
Patient Data/Charges Supervisor Sewing Department:: Lucho Bowman Risk Factors/Lifestyle Laboratory Values: Cardiac Rehab Phase I Labs Triglycerides 65 mg/dL (-199) 08/09/17 04:00 Cholesterol 110 mg/dL (200) 08/09/17 04:00 LDL Cholesterol 52 mg/dL (0-130) 08/09/17 04:00 HDL Cholesterol 45 mg/dL (40-) 08/09/17 04:00
--- NOTE | 2017-08-09 09:17 | CRPHASE1 ---
Patient Data/Charges Russet Repairer:: Lucho Bowman PCP:: Adrian Galeana Risk Factors/Lifestyle Smoking Status: Never smoker Hx Hypertension: Yes Hx Diabetes Mellitus Type 1: No Hx Diabetes Mellitus Type 2: No Hx Metabolic Disorders: No Hx Dyslipidemia: Yes Height: 1.75 m Weight:: 74.7 kg BMI: 24.3 Laboratory Values: Cardiac Rehab Phase I Labs Triglycerides 65 mg/dL (-199) 08/09/17 04:00 Cholesterol 110 mg/dL (200) 08/09/17 04:00 LDL Cholesterol 52 mg/dL (0-130) 08/09/17 04:00 HDL Cholesterol 45 mg/dL (40-) 08/09/17 04:00 Medical/Surgical History CAD:: Yes Valve Disease/Replacement:: No Pulmonary:: Yes - asthma Asthma:: Yes Diabetes:: No Diabetes Type I:: No Diabetes Type II:: No Hypertension:: Yes Dyslipidemia:: Yes Arrhythmias:: No PE:: No DVT:: No PVD:: No Arthritis:: Yes GERD:: Yes Cancer:: No Renal:: No Thyroid:: No Depression:: No Anxiety:: No CABG: No PTCA:: Yes - stents,2005, 2013 ICD:: No Pacemaker:: No Discharge/Home/Social Eval Discharge Disposition: Home
--- NOTE | 2017-08-09 09:27 | CRPH1.INSTRU ---
General Education CAD and cardiac anatomy and function:: Needs reinforcement Explanation of diagnoses and procedures:: Needs reinforcement Sign/Symptoms of PA:: Family communicates acknowledgment Antiplatelet therapy: Needs reinforcement Proper use of NTG-SL: Not instructed Emergency procedures and activation of EMS: Not instructed Compliance of all prescribed medications: Not instructed Smoking Patient Nicotine/Smoking Risk Factors Are:: Never smoked Dyslipidemia Patient Dyslipidemia Risk Factors Are:: Total Cholesterol - 110, Triglycerides - 65, HDL - 45, LDL - 52 Recommendations Include:: Lipid profile provided Dyslipidemia Response Code:: Not instructed Overweight/Obesity Patient Overweight/Obesity Risk Factors Are:: BMI Normal [24-29 & > 65 years old] Overweight/Obesity:: Not instructed Hypertension Hypertension:: Not instructed Heart Disease Patient Heart Disease Risk Factors Are:: Previous cardiac event - stents 2005, 2013 Heart Disease Response Code:: Not instructed Diabetes Patient Diabetes Risk Factors Are:: No documented hx of diabetes Metabolic Syndrome Metabolic Syndrome Response Code:: Not instructed Sedentary Sedentary Response Code:: Needs reinforcement Stress Stress Response Code:: Needs reinforcement
--- NOTE | 2017-08-09 09:30 | CRPH1.INST_ITS ---
General Education CAD and cardiac anatomy and function:: Needs reinforcement Explanation of diagnoses and procedures:: Needs reinforcement Sign/Symptoms of OR:: Family communicates acknowledgment Antiplatelet therapy: Needs reinforcement Proper use of NTG-SL: Not instructed Emergency procedures and activation of EMS: Not instructed Compliance of all prescribed medications: Not instructed Smoking Patient Nicotine/Smoking Risk Factors Are:: Never smoked Dyslipidemia Patient Dyslipidemia Risk Factors Are:: Total Cholesterol - 110, Triglycerides - 65, HDL - 45, LDL - 52 Recommendations Include:: Lipid profile provided Dyslipidemia Response Code:: Not instructed Overweight/Obesity Patient Overweight/Obesity Risk Factors Are:: BMI Normal [24-29 & > 65 years old ] Overweight/Obesity:: Not instructed Hypertension Hypertension:: Not instructed Heart Disease Patient Heart Disease Risk Factors Are:: Previous cardiac event - stents 2005, 2013 Heart Disease Response Code:: Not instructed Diabetes Patient Diabetes Risk Factors Are:: No documented hx of diabetes Metabolic Syndrome Metabolic Syndrome Response Code:: Not instructed Sedentary Sedentary Response Code:: Needs reinforcement Stress Stress Response Code:: Needs reinforcement
--- NOTE | 2017-08-09 09:47 | EKG12_ITS ---
Test Reason : S/P PCI Blood Pressure : / mmHG Vent. Rate : 061 BPM Atrial Rate : 061 BPM P-R Int : 196 ms QRS Dur : 096 ms QT Int : 488 ms P-R-T Axes : 029 -20 -37 degrees QTc Int : 491 ms Normal sinus rhythm Nonspecific ST and T wave abnormality Prolonged QT Abnormal ECG When compared with ECG of 08-AUG-2017 05:48, MANUAL COMPARISON REQUIRED, DATA IS UNCONFIRMED Confirmed by VIRGINIA FERNANDEZ ([id number]), primer expeditor and drier DIONTE FIELDS ([id number]) on 08/14/2017 8:43:39 AM Referred By: NOEL MOY Confirmed By:VIRGINIA FERNANDEZ
[2017-08-09 10:03] LABS: Hemoglobin 12.3 g/dl (13.0-16.5); Mean Corp Hgb Conc 32.4 g/gl (32-36); Mean Corpuscular Hgb 28.4 pg (27.0-32.0); Mean Corpuscular Volume 87.8 fL (80-94); Platelet Count 253 K/mm3 (150-450); RBC Distribution Width CV 12.9 % (11.6-14.6); RBC Distribution Width SD 41.5 fl (35.1-43.9); Red Blood Count 4.33 M/mm3 (4.6-6.2); White Blood Count 12.4 K/mm3 (4.4-11.0)
--- NOTE | 2017-08-09 10:03 | PCM.PN.CARD ---
Subjectve: Patient doing better this morning, chest pain of a dull ache all evening but now it is gone. Telemetry showed normal sinus rhythm with a 25 beat run of nonsustained ventricular tachycardia. EKG this morning shows normal sinus rhythm with resolved anterior ST segment elevation and inferolateral ST depression. Peak troponin thus far is 31. Right groin is clean/dry/intact, no evidence of thrills, bruits or hematoma. Hemoglobin and creatinine are within nominal limits. Objective: Vital Signs Temp Pulse Resp BP Pulse Ox 98.7 F 65 17 109/58 L 97 08/09/17 08:30 08/09/17 08:30 08/09/17 08:30 08/09/17 08:30 08/09/17 08:30 Oxygen Delivery Method Room Air Weight: 164 lb 10.965 oz Body Mass Index (BMI) 23.8 Intake and Output for Last 24 Hours 08/07/17 08/08/17 08/09/17 23:59 23:59 23:59 Intake Total 1071 / 1071 90 / 90 Output Total 2300 / 2300 850 / 850 Balance -1229 / -1229 -760 / -760 General: Awake, Alert, Oriented x 3 HEENT: PERRL, EOMI, Sclera Non Icteric Neck: Supple, Good ROM, No Lymph Node Enlargement Lungs: Clear to auscultation Cardiovascular: Regular Rhythm, Normal S1, Normal S2, No Murmurs, No Rubs, No Gallops Vascular: No Carotid Bruits, Normal Femoral Pulses, Normal Radial Pulses, Normal Dorsalis Pedal Pulse, Normal Posterior Tibial Pulses Abdomen: Bowel Sounds Present, Soft, Non Tender, No HSM, No Organomegaly Extremities: No Cyanosis, No Clubbing, No edema Neurological: No Focal Motor or Sensory Deficit 08/08/17 10:25: WBC 8.3, RBC 3.95 L, Hgb 11.7 L, Hct 35.1 L, MCV 88.9, MCH 29.6, MCHC 33.3, RDW 12.6, RDW Differential 40.6, Plt Count 259, MPV 9.4 08/08/17 10:25: Troponin I 0.24 H 08/08/17 16:05: WBC 5.9, RBC 4.06 L, Hgb 11.9 L, Hct 35.7 L, MCV 87.9, MCH 29.3, MCHC 33.3, RDW 12.6, RDW Differential 39.7, Plt Count 258, MPV 9.2 08/08/17 16:05: Troponin I 5.35 H* 08/08/17 21:35: WBC 8.7, RBC 4.15 L, Hgb 12.0 L, Hct 36.5 L, MCV 88.0, MCH 28.9, MCHC 32.9, RDW 12.8, RDW Differential 41.5, Plt Count 264, MPV 9.2 08/09/17 04:00: WBC 10.7, RBC 4.12 L, Hgb 12.2 L, Hct 36.3 L, MCV 88.1, MCH 29.6, MCHC 33.6, RDW 12.5, RDW Differential 39.5, Plt Count 278, MPV 9.3 08/09/17 04:00: Sodium 141, Potassium 3.8, Chloride 108 H, Carbon Dioxide 26.0, Anion Gap 7, BUN 14, Creatinine 0.91, Est GFR (MDRD) Af Amer 103, Est GFR (MDRD) Non-Af 85, BUN/Creatinine Ratio 15.4, Glucose 101, Calcium 9.1, Triglycerides 65, Cholesterol 110, LDL Cholesterol 52, VLDL Cholesterol 13, HDL Cholesterol 45 08/09/17 04:00: Troponin I 31.50 H* Rhythm: EKG: As above ECHO: Intact LV function with an EF of 60%, mild inferior lateral hypokinesis, RVSP within normal limits. Stress Test: Cardiac Cath: PCI: CT Surgery: Holter monitor: EPS: PPM: CXR: Chest CT Scan: Medical Necessity - Tobacco Use Smoking Status: Never smoker Tobacco Use: Non-smoker Assessment/Plan 1. Coronary artery disease: Patient presented with unstable angina, dynamic EKG changes, and significant two-vessel coronary disease. He underwent successful angioplasty and drug-eluting stent to his left circumflex after FFR evaluation showed to be 0.66, as well as balloon angioplasty of the ostium of the posterior lateral branch and stenting of the main AV branch of the right coronary artery. Given the patient's ventricular tachycardia and elevated troponin I recommend he continue in the hospital under telemetry supervision for 24 hours additional. If the patient has no further ectopy and his troponins are trending downwards, he may be discharged home tomorrow. Recommend he continue aspirin, Brilinta, Lopressor, lisinopril. We will titrate up his antihypertensive medications. He was placed on Imdur by Dr. De Leon for hypertension and vasodilatation. His echocardiogram shows relatively intact LV function with mild inferior lateral hypokinesis with an overall ejection fraction of 60%, and normal RVSP. Patient will follow up with Dr. Powers going forward his primary leadership program associate. He will be arranged for cardiac rehab in 2-3 weeks time. 2. Hyperlipidemia: Continue atorvastatin. Repeat lipid profile in 6 weeks time. 3. Thank you very much for the opportunity to participate in the cardiac care of your patient. Discussed with Dr. De Leon. Patient may be transferred to telemetry for. Code Visit Inpatient E&M: 64789 Subs Hosp L2
[2017-08-09 10:04] LABS: Scan Indicated on CBC? Y/N NO
[2017-08-09] MEDS: Lisinopril 5 MG Tablet PO (10:05)
[2017-08-09] MEDS: Aspirin 81 MG TAB.CHEW PO (10:05)
[2017-08-09] MEDS: Isosorbide Mononitrate 30 MG Tablet PO (10:06)
[2017-08-09] MEDS: TICAGRELOR 90 MG TABLET PO ×2 (10:06→21:20)
[2017-08-09] MEDS: Metoprolol Tartrate 25 MG Tablet 12.5 MG PO ×2 (10:07→21:21)
[2017-08-09] MEDS: Psyllium 1 PACKET PO (10:07)
--- NOTE | 2017-08-09 10:14 | PN.CARD_ITS ---
Subjectve: Patient doing better this morning, chest pain of a dull ache all evening but now it is gone. Telemetry showed normal sinus rhythm with a 25 beat run of nonsustained ventricular tachycardia. EKG this morning shows normal sinus rhythm with resolved anterior ST segment elevation and inferolateral ST depression. Peak troponin thus far is 31. Right groin is clean/dry/intact, no evidence of thrills, bruits or hematoma. Hemoglobin and creatinine are within nominal limits. Objective: Vital Signs Temp Pulse Resp BP Pulse Ox 98.7 F 65 17 109/58 L 97 08/09/17 08:30 08/09/17 08:30 08/09/17 08:30 08/09/17 08:30 08/09/17 08:30 Oxygen Delivery Method Room Air Weight: 164 lb 10.965 oz Body Mass Index (BMI) 23.8 Intake and Output for Last 24 Hours 08/07/17 08/08/17 08/09/17 23:59 23:59 23:59 Intake Total 1071 / 1071 90 / 90 Output Total 2300 / 2300 850 / 850 Balance -1229 / -1229 -760 / -760 General: Awake, Alert, Oriented x 3 HEENT: PERRL, EOMI, Sclera Non Icteric Neck: Supple, Good ROM, No Lymph Node Enlargement Lungs: Clear to auscultation Cardiovascular: Regular Rhythm, Normal S1, Normal S2, No Murmurs, No Rubs, No Gallops Vascular: No Carotid Bruits, Normal Femoral Pulses, Normal Radial Pulses, Normal Dorsalis Pedal Pulse, Normal Posterior Tibial Pulses Abdomen: Bowel Sounds Present, Soft, Non Tender, No HSM, No Organomegaly Extremities: No Cyanosis, No Clubbing, No edema Neurological: No Focal Motor or Sensory Deficit 08/08/17 10:25: WBC 8.3, RBC 3.95 L, Hgb 11.7 L, Hct 35.1 L, MCV 88.9, MCH 29.6 , MCHC 33.3, RDW 12.6, RDW Differential 40.6, Plt Count 259, MPV 9.4 08/08/17 10:25: Troponin I 0.24 H 08/08/17 16:05: WBC 5.9, RBC 4.06 L, Hgb 11.9 L, Hct 35.7 L, MCV 87.9, MCH 29.3 , MCHC 33.3, RDW 12.6, RDW Differential 39.7, Plt Count 258, MPV 9.2 08/08/17 16:05: Troponin I 5.35 H* 08/08/17 21:35: WBC 8.7, RBC 4.15 L, Hgb 12.0 L, Hct 36.5 L, MCV 88.0, MCH 28.9 , MCHC 32.9, RDW 12.8, RDW Differential 41.5, Plt Count 264, MPV 9.2 08/09/17 04:00: WBC 10.7, RBC 4.12 L, Hgb 12.2 L, Hct 36.3 L, MCV 88.1, MCH 29.6 , MCHC 33.6, RDW 12.5, RDW Differential 39.5, Plt Count 278, MPV 9.3 08/09/17 04:00: Sodium 141, Potassium 3.8, Chloride 108 H, Carbon Dioxide 26.0, Anion Gap 7, BUN 14, Creatinine 0.91, Est GFR (MDRD) Af Amer 103, Est GFR (MDRD ) Non-Af 85, BUN/Creatinine Ratio 15.4, Glucose 101, Calcium 9.1, Triglycerides 65, Cholesterol 110, LDL Cholesterol 52, VLDL Cholesterol 13, HDL Cholesterol 45 08/09/17 04:00: Troponin I 31.50 H* Rhythm: EKG: As above ECHO: Intact LV function with an EF of 60%, mild inferior lateral hypokinesis, RVSP within normal limits. Stress Test: Cardiac Cath: PCI: CT Surgery: Holter monitor: EPS: PPM: CXR: Chest CT Scan: Medical Necessity - Tobacco Use Smoking Status: Never smoker Tobacco Use: Non-smoker Assessment/Plan 1. Coronary artery disease: Patient presented with unstable angina, dynamic EKG changes, and significant two-vessel coronary disease. He underwent successful angioplasty and drug-eluting stent to his left circumflex after FFR evaluation showed to be 0.66, as well as balloon angioplasty of the ostium of the posterior lateral branch and stenting of the main AV branch of the right coronary artery. Given the patient's ventricular tachycardia and elevated troponin I recommend he continue in the hospital under telemetry supervision for 24 hours additional. If the patient has no further ectopy and his troponins are trending downwards, he may be discharged home tomorrow. Recommend he continue aspirin, Brilinta, Lopressor, lisinopril. We will titrate up his antihypertensive medications. He was placed on Imdur by Dr. De Leon for hypertension and vasodilatation. His echocardiogram shows relatively intact LV function with mild inferior lateral hypokinesis with an overall ejection fraction of 60%, and normal RVSP. Patient will follow up with Dr. Powers going forward his primary circus agent. He will be arranged for cardiac rehab in 2-3 weeks time. 2. Hyperlipidemia: Continue atorvastatin. Repeat lipid profile in 6 weeks time. 3. Thank you very much for the opportunity to participate in the cardiac care of your patient. Discussed with Dr. De Leon. Patient may be transferred to telemetry for. Code Visit Inpatient E&M: 66825 Subs Hosp L2
--- NOTE | 2017-08-09 10:24 | CASEMGMT ---
[facility] CM note. DC PLAN: home. Brillinta savings card given and explained to pt. Tan MURGUIA RN ACM
[2017-08-09] MEDS: Ondansetron 4 MG/2 ML Vial IV (13:36)
[2017-08-09] MEDS: Atorvastatin Calcium 80 MG Tablet PO (21:20)
[2017-08-09] MEDS: Fluticasone 0.05% 1 SPRAY NASAL.SRY NASAL (21:20)
[2017-08-10 02:58] VITALS: PULSE 59
[2017-08-10 03:07] VITALS: BP 106/64; PULSE 75; RESP 14; TEMP 36.9; O2SAT 95
[2017-08-10] MEDS: Enoxaparin 40 MG/0.4 ML Syringe SC (05:22)
--- NOTE | 2017-08-10 05:55 | EKG12_ITS ---
Test Reason : AM EKG Blood Pressure : / mmHG Vent. Rate : 073 BPM Atrial Rate : 073 BPM P-R Int : 182 ms QRS Dur : 094 ms QT Int : 432 ms P-R-T Axes : 057 -10 006 degrees QTc Int : 475 ms Normal sinus rhythm T wave abnormality, consider lateral ischemia Abnormal ECG When compared with ECG of 09-AUG-2017 04:50, MANUAL COMPARISON REQUIRED, DATA IS UNCONFIRMED Confirmed by COLLIN LOAIZA, VEL ([id number]), purchase request editor DIONTE FIELDS ([id number]) on 08/16/2017 3:48:24 PM Referred By: BINU Confirmed By:VEL POLANCO MD
[2017-08-10 06:52] VITALS: O2SAT 96
[2017-08-10 07:00] VITALS: PULSE 88
[2017-08-10 09:07] VITALS: BP 107/51; PULSE 92; RESP 18; TEMP 36.3; O2SAT 97
[2017-08-10] MEDS: TICAGRELOR 90 MG TABLET PO (09:14)
[2017-08-10] MEDS: Aspirin 81 MG TAB.CHEW PO (09:14)
[2017-08-10] MEDS: Psyllium 1 PACKET PO (09:14)
[2017-08-10 09:18] VITALS: PULSE 92
[2017-08-10] MEDS: Lisinopril 5 MG Tablet PO (09:18)
[2017-08-10] MEDS: Isosorbide Mononitrate 30 MG Tablet PO (09:18)
[2017-08-10] MEDS: Metoprolol Tartrate 25 MG Tablet 12.5 MG PO (09:18)
--- NOTE | 2017-08-10 09:19 | DCINST_ITS ---
- Discharge Diagnoses Current Active Problems: Current Active and Chronic Problems (1) Chest Pain secondary to Unstable Angina, Acute Coronary Syndrome w/ severe diffuse CAD of the small second diagonal vessel and ostial posterior lateral right coronary artery requiring PCI (2) Arrhythmia, VT post-PCI (3) Chronic Asthma w/ Allergic Rhinitis (4) Hypertension (5) Hyperlipidemia (6) BPH You will use the following diet at home:: Cardiac Your food should be the consistency of: Regular Your liquids should be the consistency of: Regular/Thin Discharge Activity: - - See additional instructions. May resume sexual activity in: - - See additional instructions. Weight Bearing Status: Weight bearing as tolerated Call your doctor if your incision/area has: Continuous Slow Oozing, Sudden Increased Bleeding, Increased Pain/ Swelling, Increased Redness, Foul Smelling Discharge, Swelling at the incision site Call your doctor if you observe: Fever of 101 or Higher, Inability to urinate, Inability to have a bowel movement, Shortness of breath, Dizziness, Fainting spells, Chest pain, Uncontrolled pain Instructions: Taking Blood Thinners After Percutaneous Coronary Intervention ( PCI), Follow-up Appointment After Percutaneous Coronary Intervention (PCI), Lifestyle Management After Percutaneous Coronary Intervention (PCI), Exercising Safely After Percutaneous Coronary Intervention (PCI), Controlling High Blood Pressure, Low-Salt Choices, Eating Heart-Healthy Food: Using the DASH Plan Additional Instructions: CARDIOLOGY PCI CATH INSTRUCTIONS. Lifting: Must be less than 5 lbs for 5 days, No restrictions after 14 days. Shower: Yes. Climb stairs: Yes. Bathing in tub or submerged water: No, until cleared per Cardiology at follow-up (call office if any concerns [phone] and may leave voicemail if after hours). Walkin minutes 3 times daily, increase as tolerated. Driving: Resume in 7 days. Sexual activity: Resume in 14 days. Regular activity: Resume 14 days. Plan on starting cardiac rehabilitation in 2-[address] Canchola recommendation Allergies/Adverse Reactions: Allergies Penicillins Allergy (Verified 08/08/17 05:45) Hives ANTI Adverse Reaction (Uncoded 08/08/17 05:45) Unknown D/T PROSTATE PROBLEMS, ADVISED NOT TO USE ANTIHISTAMINES Medications to take at Discharge Aspirin [Aspirin, Baby] 81 mg PO DAILY@0800 06/07/13 Metoprolol Tartrate [Lopressor (beta christiana)] 12.5 mg PO BID 06/07/13 Acetaminophen [Tylenol] 500 mg PO LUNCH 07/23/13 Nitroglycerin [Nitrostat] 0.4 mg SUBLINGUAL Q5M PRN 07/23/13 Psyllium [Metamucil] 1 packet PO DAILY 07/23/13 Fluticasone Propionate [Flonase Allergy Relief] 1 spray NS QHS 11/11/14 Acetaminophen [Tylenol] 1,000 mg PO BREAKFAST 08/08/17 Acetaminophen [Tylenol] 1,000 mg PO DINNER 08/08/17 Acetaminophen [Tylenol] 500 mg PO QHS 08/08/17 Finasteride [Proscar] 5 mg PO DAILY 08/08/17 Omeprazole 20 mg PO DAILY 08/08/17 Atorvastatin Calcium [Lipitor] 80 mg PO QHS #30 tab 08/10/17 Isosorbide Mononitrate [Imdur] 30 mg PO DAILY #30 tab 08/10/17 Lisinopril [Zestril] 5 mg PO DAILY #30 tab 08/10/17 Ticagrelor [Brilinta] 90 mg PO BID #60 tab 08/10/17 The following prescriptions were given: Atorvastatin Calcium [Lipitor] 80 mg PO QHS #30 tab Isosorbide Mononitrate [Imdur] 30 mg PO DAILY #30 tab Lisinopril [Zestril] 5 mg PO DAILY #30 tab Ticagrelor [Brilinta] 90 mg PO BID #60 tab Primary Care Physician: Adrian Galeana MD [Primary Care Provider] - Please follow up with your Primary Care Physician in: Follow-up within 3-5 days to review admission Please Follow Up With: Lucho Bowman MD When: Follow-up within 1-2 weeks to review admit and PCI intervention. Proposed Discharge Date: 08/10/17
--- NOTE | 2017-08-10 09:20 | PCM.DC.SUM ---
Discharge Date and Diagnosis - Problem List Patient Problems: Active and Suspected Problems Unstable angina (Acute) Date of Admission: 08/08/17 Date of Discharge: 08/10/17 - Primary Discharge Diagnosis Active and Suspected Problems (1) Chest Pain secondary to Unstable Angina, Acute Coronary Syndrome w/ severe diffuse CAD of the small second diagonal vessel and ostial posterior lateral right coronary artery requiring PCI, CAD s/p PCI x 3 w/ PCI x 2 2005 and PCI x 2 2013 (2) Arrhythmia, VT post-PCI (3) Chronic Asthma w/ Allergic Rhinitis (4) Hypertension (5) Hyperlipidemia (6) BPH - Secondary Discharge Diagnosis Chronic Problems HTN (hypertension) (Chronic) HLD (hyperlipidemia) (Chronic) Allergic rhinitis (Chronic) Asthma (Chronic) BPH (benign prostatic hyperplasia) (Chronic) CAD (coronary artery disease) (Chronic) stents Hospital Course and Treatment Dr. Canchola Cardiology Dr. Mcgregor Cardiology Operations: None Procedures: 2-D Echocardiogram, Cardiac catheterization, EKG Summary of Care Provided: The patient is a 81 y/o M w/ PMHx: Asthma, BPH, CAD s/p PCI x 3 (PCI x 2 2005 and PCI x 2 2013) following w/ Dr. Bowman, HTN, HLD, Allergic Rhinitis who presented to the [facility] ED on 08/08/17 with onset of chest pressure and pain to the substernal region without radiation, awakening him from sleep, rated 7 out of 10 initially with associated diaphoresis with improvement per EMS and ED treatment to 5 out of 10 upon evaluation. In the emergency room given findings cardiology consulted and requested administration of Brilinta loading dose in addition to fentanyl for pain secondary to lower blood pressure. Patient proceeded from the emergency room to the cardiac catheterization lab remarkable for patent previously placed stents in the LAD and left circumflex artery with severe diffuse disease of his small second diagonal vessel and ostial 90% posterior lateral right coronary artery stenosis with immediate PCI intervention successful PTCA/BS of the right posterior AV branch, successful PCI with PTCA to the ostial PL branch of RCA, successful PTCA/SKYE of the proximal LCx. Following intervention patient transitioned to the intensive care unit. Maintained on telemetry, onset VT overnight with ongoing chest discomfort thus remained inpatient with eventual PCU transition with improvement w/ regimen changes. ECHO obtained w/ relatively intact LV function with mild inferior lateral hypokinesis with an overall ejection fraction of 60%, and normal RVSP. Mag normal. FLP obtained with transition to high dose statin. Discharge plan w/ indefinite aspirin, brillinta x 12 months, continued BB, high dose statin, low dose ACEI, low dose imdur, outpatient cardiac rehabilitation and post interventional care. Patient discharged to home in stable improved condition with resolved chest pain, improved BP with follow-up with PCP and Cardiology Dr. Bowman. DAY OF DISCHARGE PROGRESS NOTE: Subjective: Patient without acute event overnight per self and nursing report. Patient transitioned from ICU to PCU day prior without marked event. He notes chest pain which had been ongoing yesterday AM has resolved. Notes eager for discharge to home. Patient denies fever, chills, nausea, emesis, abdominal pain. Patient agreeable to discharge to home. Patient will be discharged with follow-up with primary care physician within 3-5 days in addition to Cardiology within 1-2 weeks. Objective: T 97.4, HR 92, BP 107/51, RR 18, 97% on RA. Physical Examination: General: awake, alert, oriented x 3 and cooperative, seated upright in the bedside chair, NAD. Skin: normal color, turgor, no icterus, cyanosis. HEENT: AT/NC, EOMI, PERRLA, MMM. Lungs: CTA bilaterally, moderate effort, mild decrease BL bases, no rales, ronchi or wheezing. Heart: Regular rate and rhythm; no gallop, rub audible. Abdomen: soft, NTTP, ND, normal BS. Extremities: no cyanosis, clubbing, or edema. Neurological: patient awake, alert, oriented x 3; cognitive function intact; pupils equally reactive to light and accomodation; cranial nerves II-XII grossly normal, moving all 4 extremities, no focal deficits, strength improved, mildly globally decreased. Psychiatric: affect appears normal, no acute evidence of depressive or anxiety feelings. Assessment and Plan: Please see hospital summary above. Discharge Activity: - - See additional instructions. May resume sexual activity in: - - See additional instructions. Weight Bearing Status: Weight bearing as tolerated Call your doctor if your incision/area has: Continuous Slow Oozing, Sudden Increased Bleeding, Increased Pain/ Swelling, Increased Redness, Foul Smelling Discharge, Swelling at the incision site Call your doctor if you observe: Fever of 101 or Higher, Inability to urinate, Inability to have a bowel movement, Shortness of breath, Dizziness, Fainting spells, Chest pain, Uncontrolled pain Home Medications: Medications to take at Discharge Aspirin [Aspirin, Baby] 81 mg PO DAILY@0800 06/07/13 Metoprolol Tartrate [Lopressor (beta christiana)] 12.5 mg PO BID 06/07/13 Acetaminophen [Tylenol] 500 mg PO LUNCH 07/23/13 Nitroglycerin [Nitrostat] 0.4 mg SUBLINGUAL Q5M PRN 07/23/13 Psyllium [Metamucil] 1 packet PO DAILY 07/23/13 Fluticasone Propionate [Flonase Allergy Relief] 1 spray NS QHS 11/11/14 Acetaminophen [Tylenol] 1,000 mg PO BREAKFAST 08/08/17 Acetaminophen [Tylenol] 1,000 mg PO DINNER 08/08/17 Acetaminophen [Tylenol] 500 mg PO QHS 08/08/17 Finasteride [Proscar] 5 mg PO DAILY 08/08/17 Omeprazole 20 mg PO DAILY 08/08/17 Atorvastatin Calcium [Lipitor] 80 mg PO QHS #30 tab 08/10/17 Isosorbide Mononitrate [Imdur] 30 mg PO DAILY #30 tab 08/10/17 Lisinopril [Zestril] 5 mg PO DAILY #30 tab 08/10/17 Ticagrelor [Brilinta] 90 mg PO BID #60 tab 08/10/17 Following Prescrptions Were Given to Patient: Atorvastatin Calcium [Lipitor] 80 mg PO QHS #30 tab Isosorbide Mononitrate [Imdur] 30 mg PO DAILY #30 tab Lisinopril [Zestril] 5 mg PO DAILY #30 tab Ticagrelor [Brilinta] 90 mg PO BID #60 tab Primary Care Physician: Adrian Galeana MD [Primary Care Provider] - Please follow up with your Primary Care Physician in: Follow-up within 3-5 days to review admission Please Follow Up With: Lucho Bowman MD When: Follow-up within 1-2 weeks to review admit and PCI intervention. Patient Instructions: Controlling High Blood Pressure, Low-Salt Choices, Eating Heart-Healthy Food: Using the DASH Plan, Taking Blood Thinners After Percutaneous Coronary Intervention (PCI), Follow-up Appointment After Percutaneous Coronary Intervention (PCI), Lifestyle Management After Percutaneous Coronary Intervention (PCI), Exercising Safely After Percutaneous Coronary Intervention (PCI) Disposition: Home Minutes spent on discharge:: 35 Patient Condition:: Fair Medical Necessity - Tobacco Use Smoking Status: Never smoker Tobacco Use: Non-smoker Meaningful Use Info Meaningful Use Diagnoses (Choose all that apply): None applicable Code Visit Inpatient E&M: 04102 Disch Hosp
--- NOTE | 2017-08-10 09:45 | PN.CARD_ITS ---
Subjectve: Patient doing very well this morning, no further chest pain for the past 24 hours. Telemetry negative except for sinus rhythm. Right groin is clean/dry/ intact. EKG this morning shows normal sinus rhythm with resolving anterolateral ST segment changes. Objective: Vital Signs Temp Pulse Resp BP Pulse Ox 97.4 F L 92 18 107/51 L 97 08/10/17 09:07 08/10/17 09:18 08/10/17 09:07 08/10/17 09:07 08/10/17 09:07 Oxygen Delivery Method Room Air Weight: 154 lb 8.705 oz Body Mass Index (BMI) 23.8 Intake and Output for Last 24 Hours 08/08/17 08/09/17 08/10/17 23:59 23:59 23:59 Intake Total 1071 / 1071 810 / 810 120 / 120 Output Total 2300 / 2300 1350 / 1350 Balance -1229 / -1229 -540 / -540 120 / 120 General: Awake, Alert, Oriented x 3 HEENT: PERRL, EOMI, Sclera Non Icteric Neck: Supple, Good ROM, No Lymph Node Enlargement Lungs: Clear to auscultation Cardiovascular: Regular Rhythm, Normal S1, Normal S2, No Murmurs, No Rubs, No Gallops Vascular: No Carotid Bruits, Normal Femoral Pulses, Normal Radial Pulses, Normal Dorsalis Pedal Pulse, Normal Posterior Tibial Pulses Abdomen: Bowel Sounds Present, Soft, Non Tender, No HSM, No Organomegaly Extremities: No Cyanosis, No Clubbing, No edema Neurological: No Focal Motor or Sensory Deficit 08/09/17 09:30: WBC 12.4 H, RBC 4.33 L, Hgb 12.3 L, Hct 38.0 L, MCV 87.8, MCH 28.4, MCHC 32.4, RDW 12.9, RDW Differential 41.5, Plt Count 253, MPV 9.0 Rhythm: EKG: ECHO: Stress Test: Cardiac Cath: PCI: CT Surgery: Holter monitor: EPS: PPM: CXR: Chest CT Scan: Medical Necessity - Tobacco Use Smoking Status: Never smoker Tobacco Use: Non-smoker Assessment/Plan 1. Coronary artery disease: Patient presented with unstable angina, dynamic EKG changes, and significant two-vessel coronary disease. He underwent successful angioplasty and drug-eluting stent to his left circumflex after FFR evaluation showed to be 0.66, as well as balloon angioplasty of the ostium of the posterior lateral branch and stenting of the main AV branch of the right coronary artery. Overnight, the patient's chest pain is completely resolved, and his telemetry has remained normal. Recommend he continue aspirin, Brilinta, Lopressor, lisinopril. We will titrate up his antihypertensive medications. He was placed on Imdur by Dr. De Leon for hypertension and vasodilatation. His echocardiogram shows relatively intact LV function with mild inferior lateral hypokinesis with an overall ejection fraction of 60%, and normal RVSP. Patient will follow up with Dr. Powers going forward his primary spinning frame tender. He will be arranged for cardiac rehab in 2-3 weeks time. 2. Hyperlipidemia: Continue atorvastatin. Repeat lipid profile in 6 weeks time. 3. Thank you very much for the opportunity to participate in the cardiac care of your patient. Discussed with Dr. De Leon. Patient may be discharged home today. Code Visit Inpatient E&M: 40499 Subs Hosp L2
== END 2017-08-10 10:48 | disposition home or self-care (01) | DRG 247 ==
LOC: ED 06:00 → ICU 09:42 → PCU 08-09 15:00
PROVIDERS: Internal Medicine Cardiovascular Disease; Admitting Provider Family Medicine; Emergency Provider Emergency Medicine; Family Provider Internal Medicine; PCP Internal Medicine; Visit Provider Family Medicine
DX: I25.110 Atherosclerotic heart disease of native coronary artery with unstable angina pectoris (principal); I24.9 Acute ischemic heart disease, unspecified; I47.2 Ventricular tachycardia; J45.909 Unspecified asthma, uncomplicated; I10 Essential (primary) hypertension; N40.0 Benign prostatic hyperplasia without lower urinary tract symptoms; E78.5 Hyperlipidemia, unspecified; Z95.5 Presence of coronary angioplasty implant and graft; K21.9 Gastro-esophageal reflux disease without esophagitis; J30.9 Allergic rhinitis, unspecified
CPT/HCPCS: 71045; 80048; 80061; 82550; 83735; 84484; 85025; 85027; 85347; 87641; 92921; 92928; 93005; 93306; 93458; 93571; 99285; J0153; J7030; Q9957; Q9967; A4216; C1725; C1769; C1874; C1887; C1894; C9600; J2405

== ENCOUNTER → 2017-09-03 10:05 | Outpatient (CLI) | payer MEDICARE, SELFPAY ==
[2017-08-09 09:27] VITALS: BMI 24.3
--- NOTE | 2017-09-03 10:19 | PCM.CR.ITP ---
General Information - General Information Admitting Diagnosis: PCI w/ coronary stent placement following recent heart cath. Recommended to by Dr. Canchola that he participate in CR. - Education/Goals Barriers to Learning: None Individual Counseling: Initial Assessment: Abnormal Cholesterol Levels - maintained, High Blood Pressure - controlled, Family History of Heart Disease (under 65 years) - mother, brother, and sister. Cardiac Rehabilitation Goals: 1. Maintain the individual as the primary focus of care. 2. To improve the patient's quality of life. 3. Identification of cardiac risk factors and provide cardiac risk factor management. 4. Enhance the psychosocial status of the patient. 5. Reconditioning enough to allow the patient to resume customary activities. 6. Control symptoms of cardiac disease Scale for measuring improvement of personal goals: Enter appropriate number in Comments. 2 = Unchanged. 3 = Slightly Better. 4 = Moderate Improvement. 5 = Met my Goal Personal Goals: Initial Assessment: Improve energy level, Get back to work, or to resume activities faster, Improve knowledge of cardiac disease, Improve muscle strength and endurance, Improve diet and eating habits (eat healthier), Control risk factors (learn risk factor modification) Exercise - Initial Assessment - Visit Date of Eval: 09/03/17 - Established initial ITP w/patient Session #:: 0 - Scheduled start date - Stages of Change Stages of Change:: Action - Exercise Prescription Mode:: Treadmill, Rower, Airdyne, NuStep Angina with exercise?: No Target Heart Rate:: 100-106 - Hypertension Do any of the following apply?: Yes, Medication Resting Blood Pressure:: 108/56 - left arm at rest. - Intervention Home Exercise/Activity Goal:: Moderate Exercise 30 min/day x 5 days/wk - Education Goals:: Warm-up, RPE OLGA Scale, S/S, Safe Exercise, Self-Monitoring - Exercise Program Goals Exercise Program Goals: Aerobic Activity >30 min Nutrition - Initial Assessment - Program Goals Nutrition Program Goals: LDL <70. Total Cholesterol <200. HDL >45. Triglycerides <150. HgbA1C <7%. BMI <25 - Visit Date of Assessment:: 09/03/17 - Stages of Change Stages of Change:: Action - Lipids Total Cholesterol (mg/dL) Goal = less than 200 mg/dL: 110 HDL Cholesterol (mg/dL) Goal = less than 45 mg/dL: 45 LDL Cholesterol (mg/dL) Goal = less than 70 mg/dL: 52 Triglycerides (mg/dL) Goal = less than 150 mg/dL: 65 - Diabetes Diabetes:: No - Weight Management Height: 5 ft 4 in Weight:: 154 lb Body Fat %:: 26.3 - Intervention Referral to dietitian:: No Referral to Diabetic Clinic:: No Will attend diet classes:: Yes - Education Gave educational materials for:: Healthy eating Tobacco - Initial Assessment - Program Goals Tobacco Program Goals: Complete smoking cessation. Attend education classes. Improve Knowledge Test score - Stage of Change Stages of Change:: Action - Learning Barriers Learning Barriers: Ready to Learn - Family Support Do you have family support?: Yes - Tobacco Use Tobacco Use: Non-smoker Do you use smokeless tobacco?: No - Intervention Smoking Cessation Referral:: No Individual Education/Counseling:: No Education Schedule Given:: Yes - Education Gave educational material for:: Coronary artery disease, Risk factors, Sexuality, Medical compliance, Cardiac A&P, Angina signs & symptoms Psychosocial - Initial Assess - Target Goals Target Goals: Assess presence or absence of depression. Using a valid screening tool, maximizes coping skills. Positive support system - Stages of Change Stages of Change:: Action - Psychosocial Test Tool Used:: HANDS Depression Questionnaire - Intervention PS - Interventions: Yes Attend Stress Management Classes, No Referral to Mental Health, No Referral to [facility] Case Management, No Referral to Physician, No Uses Stress Management Skills - Education Gave educational materials for:: Coping techniques, Signs & symptoms of depression, Stress management, Relaxation techniques - Patient/Program Goal Preventative Medication(s):: Aspirin, Clopidogrel, Statin/lipid - Assistive Devices Assistive Devices:: None Fall Risk Assessed:: Yes Patient Health Questionnaire Initial Assessment 1. Little interest or pleasure in doing things: Several days 2. Feeling down, depressed, or hopeless: Not at all 3. Trouble falling or staying asleep, or sleeping too much: Several days 4. Feeling tired or having little energy: More than half the days 5. Poor appetite or overeating: More than half the days 6. Feeling bad about yourself -- or that you are a failure or have let yourself or your family down: Not at all 7. Trouble concentrating on things, such as reading the newspaper or watching television: Several days 8. Moving or speaking so slowly that other people could have noticed. Or the opposite - being so fidgety or restless that you have been moving around a lot more than usual: Not at all 9. Thoughts that you would be better off , or of hurting yourself in some way: Not at all How difficult have these problems made it for you to do your work, take care of things at home, or get along with other people?: Not difficult at all Total Score: 7 KATIE-Q SV Test - Statements CAD is a disease of the arteries in the heart: True Examples of risk factors for heart disease: True Angina is chest pain or discomfort: True The benefits of resistance training include: True Eating more meat and dairy products: False Anti-platelet medications such as aspirin are important: True The only effective way to manage stress: False An exercise warm-up slowly increases heart rate: True Prepared, processed foods usually have high sodium: I Don't Know Depression is common after a heart attack: True The statin medications lower cholesterol: True To control blood pressure, lower the amount of sodium: True If someone gets chest discomfort during walking: False Transfats are partially hydrogenated vegetable oils: I Don't Know Sleep apnea that is not treated increases the risk: False To control cholesterol, one should become a vegetarian: False Someone knows if he/she is exercising at the right level: I Don't Know Diabetes cannot be prevented with exercise & health eating: False Stress is a large risk for heart attack: True A diet that can help lower blood pressure is rich in: True - Total Score Total Correct Responses: 16 Self-Efficacy Initial Assessment We would like to know how confident you are in doing certain activities. Please select your confidence level for:: Select your confidence level for the following using the scale 1-10 where 1 is not at all confident and 10 is totally confident. Your score is the average of all 6 responses. Fatigue: How confident are you that you can keep the fatigue caused by your disease from interfering with the things you want to do? Select Number: 5 Physical Discomfort or Pain: How confident are you that you can keep the physical discomfort or pain of your disease from interfering with the things you want to do? Select Number: 5 Emotional Distress: How confident are you that you can keep the emotional distress caused by your disease from interfering with the things you want to do? Select Number: 6 Other Symptoms or Health Problems: How confident are you that you can keep other symptoms or health problems from interfering with the things you want to do? Select Number: 6 Different Tasks and Activities: How confident are you that you can do the different tasks and activities needed to manage your health condition so as to reduce your need to see a doctor? Select Number: 6 Medication: How confident are you that you can do things other than just taking medication to reduce how much your illness affects your everyday life? Select Number: 6 Total Score:: 5 Nutrition Survey - Nutrition Survey Instructions Scoring Instructions: Scoring is as follows: Yes = 1 points. No = 0 point. Patient score that is >/=12 is considered to be at potential nutritional risk and could benefit from a referral to a registered dietitian. - Nutrition Survey Initial Have you lost >10 lbs over the past 2 months without trying?: No Are you following a special diet at home for diabetes, low fat, or low salt?: No Are you interested in meeting with a dietitian for help understanding your diet?: Yes Do you eat less than 3 meals a day?: No Do you eat fatty meats (waller, sausage, ribs, etc), fried foods, desserts, large amounts of salad dressings, margarine, butter, or cheese most days?: No Do you have food allergies? [Enter types in comment field]: No Do you eat in restaurants more than 3 times a week?: No Do you season food with salt, seasoning salt, or garlic salt?: No Do you used canned, boxed, frozen meals, or soups, seasoning packets?: No Total Score:: 1
--- NOTE | 2017-09-03 10:19 | PCM.CR.HP2 ---
CR - History & Physical - General Arrival date:: 09/03/17 Arrival time:: 10:19 Date of Referral:: 08/19/17 Date of CR Evaluation:: 09/03/17 Referring Physician: Dr. Alex Mcgregor Primary Diagnosis: PCI w/status post coronary stent placement - History of Present Cardiac Event Onset Date: Enter Onset Date of cardiac illnesses in Comment field below PTCA or coronary stenting:: Yes - 08/08/2017 Type of Symptoms:: pains in chest and throat, unstable angina pectoris. Interventions with present event:: Diagnostic heart cath procedure, w/PCI intervention and placement of stent Were there any complications?: none - Medications Home Medications: Ambulatory Orders Medication Instructions Recorded Aspirin [Aspirin, Baby] 81 mg PO DAILY@0800 06/07/13 Metoprolol Tartrate [Lopressor 12.5 mg PO BID 06/07/13 (beta christiana)] Acetaminophen [Tylenol] 500 mg PO LUNCH 07/23/13 Nitroglycerin [Nitrostat] 0.4 mg SUBLINGUAL Q5M PRN 07/23/13 Psyllium [Metamucil] 1 packet PO DAILY 07/23/13 Fluticasone Propionate [Flonase 1 spray NS QHS 11/11/14 Allergy Relief] Acetaminophen [Tylenol] 1,000 mg PO BREAKFAST 08/08/17 Acetaminophen [Tylenol] 1,000 mg PO DINNER 08/08/17 Acetaminophen [Tylenol] 500 mg PO QHS 08/08/17 Finasteride [Proscar] 5 mg PO DAILY 08/08/17 Omeprazole 20 mg PO DAILY 08/08/17 Atorvastatin Calcium [Lipitor] 80 mg PO QHS #30 tab 08/10/17 Isosorbide Mononitrate [Imdur] 30 mg PO DAILY #30 tab 08/10/17 Lisinopril [Zestril] 5 mg PO DAILY #30 tab 08/10/17 Ticagrelor [Brilinta] 90 mg PO BID #60 tab 08/10/17 - Allergies Allergies/Adverse Reactions: Allergies Penicillins Allergy (Verified 08/30/17 14:33) Hives antihistamines Adverse Reaction (Uncoded 08/30/17 14:36) unknown - Sleep Disorder Evaluation Hx of Sleep Apnea: Yes Do you snore loudly (louder than talking or can be heard through closed doors)?: Yes - went through sleep study haven't heard from [facility] yet for home CPAP. Do you often feel tired/ fatigued/ sleepy during daytime?: Yes Has anyone observed you stop breathing during sleep?: No History of Hypertension (for STOP score): Yes STOP Results: Positive Advanced Directives - Advanced Directives Power of Clothing Sorter: Yes Living Will: Yes Advance Directives Information Provided: No Advance Directives on File: Yes - patient believes they should be on file DNR Order?:: No Past Medical History - Past Medical Illness Medical History: Past Medical History (Last Reviewed 08/30/17 @ 15:06 by Alex Mcgregor MD) Tricuspid regurgitation (Chronic) I07.1 ASHD (arteriosclerotic heart disease) (Chronic) I25.10 Acute coronary syndrome (Acute) I24.9 Unstable angina (Acute) I20.0 HTN (hypertension) (Chronic) I10 HLD (hyperlipidemia) (Chronic) E78.5 Asthma (Chronic) J45.909 CAD (coronary artery disease) (Chronic) I25.10 stents BPH (benign prostatic hyperplasia) N40.0 DDD (degenerative disc disease), lumbar M51.36 Gastritis K29.70 Osteoarthritis M19.90 - Past Surgical History Surgical History: Past Surgical History (Last Reviewed 08/30/17 @ 15:06 by Alex Mcgregor MD) Stented coronary artery (Chronic) Z95.5 Avain 2006 stent to LAD and left circumflex; Avani SKYE to RCA 2013; 08/08/[address] Canchola: PTCA/SKYE to right posterior AV branch, PCI/PTCA to ostial PL branch of RCA, PTCA/SKYE of proximal LCX after FFR. Hx of transurethral resection of prostate Onset Date: ~11/19/14 Z98.890, Z90.79 Surgical History: TURP, - - coronary stents X 2; total of 5 stents now. - Family History Summary Family History: Family History (Last Updated 09/03/17 @ 10:26 by Juan Jovel, KNIFE GLAZER, SUBSTATION OPERATOR CHIEF, BS) Mother CHF (congestive heart failure) Brother Myocardial infarction Sister CHF (congestive heart failure) Social History - Smoking History Smoking Status: Never smoker Hx Tobacco Use: No Hx Smoking Exposure: No - Alcohol Use Alcohol Usage: No - Substance Abuse Hx Substance Use: No - Occupation Occupation (List type of work in comments):: Retired - Hobbies, Recreation, Social Activities Hobbies: Woodworking - enjoys woodworking Recreational Activities: I am able to engage in all my recreational activities, I am able to engage in most, but not all activities Social Environment - Status Marital Status: - Current Living Arrangements Living Environment:: Spouse - Children How many children do you have?: 2 Do any of your children live nearby?: Yes - Safety Do you feel safe in your surroundings?: Yes - Assistance Do you need any assistance at home?: none Review of Systems - Review of Systems Hints: Right click = Denies (Slash). Left click = Reports ([place]) Review of Present Symptoms: Reports: Shortness of Breath with Exertion - associated with believes to be the Brilinta, Dr. Mcgregor is aware and will be changing the patient over to PLavix 75mg when finished with the Brilinta Rx., Fatigue, Appetite - Special Diet - Cardiac Diet., Sleep - Normal - has determined to have EMI and will be starting CPAP at home.. Denies: Dizziness/Lightheadedness, Appetite - Normal - [facility] hasn't been eating that much; so appetitie has changed some., Sexual Changes - Pain Is Patient Pain Free?: No Pain Location: none Risk Factor Assessment - Chief Complaint Chief Complaint: Patient is a very pleasant 81 yr old male patient of Dr. Mcgregor's who presents to CR today following recent PCI procedure by Dr. Canchola on 08/08/2017. The patient is anxious to get started in CR. - Vital Signs Temperature: 98.7 F Respiratory Rate: 16 Pulse Ox: 97 - Pulse Pulse Rate: 56 - Hypertension Blood Pressure Sitting - Right Arm: 118/64 Blood Pressure Sitting - Left Arm: 108/56 - Blood Cholesterol/Lipids Total Cholesterol (mg/dL) Goal = less than 200 mg/dL: 110 HDL Cholesterol (mg/dL) Goal = less than 40 mg/dL: 45 LDL Cholesterol (mg/dL) Goal = less than 70 mg/dL: 52 Triglycerides (mg/dL) Goal = less than 150 mg/dL: 65 - Diabetes Nutrition Referral for Diabetes: No - Obesity Height: 5 ft 4 in Weight:: 154 lb Weight in Pounds: 154.0 lbs Body Mass Index (BMI): 26.4 Nutritional Referral for Obesity: No - Physical Inactivity Physical Inactivity: Reg Exercise 30 min/day - rope and pully exercise and leg exercises daily., Recreational activity - getting back to doing some wood working and working out in the yard; mowing etc. - Risk Stratification Risk Guidelines: Lowest Risk: Risk Factor for Smoking, Risk Factor for Dyslipidemia, Risk Factor for Diabetes, Risk Factor for Hypertension, Risk Factor for Sedentary Lifestyle, Risk Factor for Depression, Moderate Risk: Risk Factor for Obesity - For Smoking Smoking Risk Guidelines: Smoking Low Risk: None or quit greater than 6 months ago. Smoking Moderate Risk: Smoker or quit 6 months or less ago. Smoking High Risk: Smoker - For Dyslipidemia Dyslipidemia Risk Guidelines: Low Risk: Moderate Risk: High Risk: 15-25% fat 25.1-29% fat >/= 30% fat. <7% sat fat 7-9% sat fat >9% sat fat. <150 mg chol 150-299 mg chol >/= 300 mg chol. LDL <100 LDL 100-129 LDL >/= 130. Chol/HDL ratio <5.0 Chol/HDL ratio 5.0-6.0 Chol/HDL ratio >6.0. Triglycerides <100 Triglycerides 100-149 Triglycerides >/= 150 - For Diabetes Mellitus Diabetes Risk Guidelines: Diabetes Low Risk: HgA1c <6.5% and/or FBG <120. Diabetes Moderate Risk: HgA1c 6.6-7.9% and/or FBG 120-180. Diabetes High Risk: HgA1c >/= 8% and/or FBG >180 - For Obesity/Overweight Obesity/Overweight Risk Guidelines: Obesity Low Risk: BMI <25.0. Obesity Moderate Risk: BMI 25-29.9. Obesity High Risk: BMI >/= 30.0 - For Hypertension Hypertension Risk Guidelines: Hypertension Low Risk: Systolic <120 and Diastolic <80. Hypertension Moderate Risk: Systolic 120-139 and Diastolic 80-89. Hypertension High Risk: Systolic >/= 140 and Diastolic >/= 90 - For Sedentary Lifestyle Sedentary Lifestyle Risk Guidelines: Sedentary Lifestyle Low Risk: >/= 1,500 kcal/week. Sedentary Lifestyle Moderate Risk: 700-1,499 kcal/week. Sedentary Lifestyle High Risk: < 700 kcal/week - For Depression Depression Risk Guidelines: Depression Low Risk: Not clinically depressed. Depression Moderate Risk: Mildly depressed. Depression High Risk: Clinically depressed - Family History Family History: Family History (Last Updated 09/03/17 @ 10:26 by Juan Jovel, KNIFE GLAZER, SUBSTATION OPERATOR CHIEF, BS) Mother CHF (congestive heart failure) Brother Myocardial infarction Sister CHF (congestive heart failure) Motivation - Motivation to Participate On a scale of 1 to 10, how prepared are you to commit to attending program?: 6 What do you see as barriers to successfully being able to complete the program?: time if anything What do you see as the benefits of succesfully completing the program? In other words, what do you hope to get out of participating in the program?: doing things better and improving health. Are there issues you are dealing with that will interfere with completing the program?: none Do you have a spouse or signficant other, family or friends who will help support you to complete the program?: Excellent family support system.
--- NOTE | 2017-09-03 10:29 | CR.HP_ITS ---
CR - History & Physical - General Arrival date:: 09/03/17 Arrival time:: 10:19 Date of Referral:: 08/19/17 Date of CR Evaluation:: 09/03/17 Referring Physician: Dr. Alex Mcgregor Primary Diagnosis: PCI w/status post coronary stent placement - History of Present Cardiac Event Onset Date: Enter Onset Date of cardiac illnesses in Comment field below PTCA or coronary stenting:: Yes - 08/08/2017 Type of Symptoms:: pains in chest and throat, unstable angina pectoris. Interventions with present event:: Diagnostic heart cath procedure, w/PCI intervention and placement of stent Were there any complications?: none - Medications Home Medications: Ambulatory Orders Medication Instructions Recorded Aspirin [Aspirin, Baby] 81 mg PO DAILY@0800 06/07/13 Metoprolol Tartrate [Lopressor 12.5 mg PO BID 06/07/13 (beta christiana)] Acetaminophen [Tylenol] 500 mg PO LUNCH 07/23/13 Nitroglycerin [Nitrostat] 0.4 mg SUBLINGUAL Q5M PRN 07/23/13 Psyllium [Metamucil] 1 packet PO DAILY 07/23/13 Fluticasone Propionate [Flonase 1 spray NS QHS 11/11/14 Allergy Relief] Acetaminophen [Tylenol] 1,000 mg PO BREAKFAST 08/08/17 Acetaminophen [Tylenol] 1,000 mg PO DINNER 08/08/17 Acetaminophen [Tylenol] 500 mg PO QHS 08/08/17 Finasteride [Proscar] 5 mg PO DAILY 08/08/17 Omeprazole 20 mg PO DAILY 08/08/17 Atorvastatin Calcium [Lipitor] 80 mg PO QHS #30 tab 08/10/17 Isosorbide Mononitrate [Imdur] 30 mg PO DAILY #30 tab 08/10/17 Lisinopril [Zestril] 5 mg PO DAILY #30 tab 08/10/17 Ticagrelor [Brilinta] 90 mg PO BID #60 tab 08/10/17 - Allergies Allergies/Adverse Reactions: Allergies Penicillins Allergy (Verified 08/30/17 14:33) Hives antihistamines Adverse Reaction (Uncoded 08/30/17 14:36) unknown - Sleep Disorder Evaluation Hx of Sleep Apnea: Yes Do you snore loudly (louder than talking or can be heard through closed doors)? : Yes - went through sleep study haven't heard from [facility] yet for home CPAP. Do you often feel tired/ fatigued/ sleepy during daytime?: Yes Has anyone observed you stop breathing during sleep?: No History of Hypertension (for STOP score): Yes STOP Results: Positive Advanced Directives - Advanced Directives Power of Septic Tank Cleaner: Yes Living Will: Yes Advance Directives Information Provided: No Advance Directives on File: Yes - patient believes they should be on file DNR Order?:: No Past Medical History - Past Medical Illness Medical History: Past Medical History (Last Reviewed 08/30/17 @ 15:06 by Alex Mcgregor MD) Tricuspid regurgitation (Chronic) I07.1 ASHD (arteriosclerotic heart disease) (Chronic) I25.10 Acute coronary syndrome (Acute) I24.9 Unstable angina (Acute) I20.0 HTN (hypertension) (Chronic) I10 HLD (hyperlipidemia) (Chronic) E78.5 Asthma (Chronic) J45.909 CAD (coronary artery disease) (Chronic) I25.10 stents BPH (benign prostatic hyperplasia) N40.0 DDD (degenerative disc disease), lumbar M51.36 Gastritis K29.70 Osteoarthritis M19.90 - Past Surgical History Surgical History: Past Surgical History (Last Reviewed 08/30/17 @ 15:06 by Alex Mcgregor MD) Stented coronary artery (Chronic) Z95.5 Avani 2006 stent to LAD and left circumflex; Avani SKYE to RCA 2013; 08/08/[address] Canchola: PTCA/SKYE to right posterior AV branch, PCI/PTCA to ostial PL branch of RCA, PTCA/SKYE of proximal LCX after FFR. Hx of transurethral resection of prostate Onset Date: ~11/19/14 Z98.890, Z90.79 Surgical History: TURP, - - coronary stents X 2; total of 5 stents now. - Family History Summary Family History: Family History (Last Updated 09/03/17 @ 10:26 by Juan Jovel, TOW CAR DRIVER, BATCH TESTER, BS) Mother CHF (congestive heart failure) Brother Myocardial infarction Sister CHF (congestive heart failure) Social History - Smoking History Smoking Status: Never smoker Hx Tobacco Use: No Hx Smoking Exposure: No - Alcohol Use Alcohol Usage: No - Substance Abuse Hx Substance Use: No - Occupation Occupation (List type of work in comments):: Retired - Hobbies, Recreation, Social Activities Hobbies: Woodworking - enjoys woodworking Recreational Activities: I am able to engage in all my recreational activities, I am able to engage in most, but not all activities Social Environment - Status Marital Status: - Current Living Arrangements Living Environment:: Spouse - Children How many children do you have?: 2 Do any of your children live nearby?: Yes - Safety Do you feel safe in your surroundings?: Yes - Assistance Do you need any assistance at home?: none Review of Systems - Review of Systems Hints: Right click = Denies (Slash). Left click = Reports ([place]) Review of Present Symptoms: Reports: Shortness of Breath with Exertion - associated with believes to be the Brilinta, Dr. Mcgregor is aware and will be changing the patient over to PLavix 75mg when finished with the Brilinta Rx., Fatigue, Appetite - Special Diet - Cardiac Diet., Sleep - Normal - has determined to have EMI and will be starting CPAP at home.. Denies: Dizziness/ Lightheadedness, Appetite - Normal - since been int [facility] hasn't been eating that much; so appetitie has changed some., Sexual Changes - Pain Is Patient Pain Free?: No Pain Location: none Risk Factor Assessment - Chief Complaint Chief Complaint: Patient is a very pleasant 81 yr old male patient of Dr. Mcgregor' s who presents to CR today following recent PCI procedure by Dr. Canchola on 08/08. The patient is anxious to get started in CR. - Vital Signs Temperature: 98.7 F Respiratory Rate: 16 Pulse Ox: 97 - Pulse Pulse Rate: 56 - Hypertension Blood Pressure Sitting - Right Arm: 118/64 Blood Pressure Sitting - Left Arm: 108/56 - Blood Cholesterol/Lipids Total Cholesterol (mg/dL) Goal = less than 200 mg/dL: 110 HDL Cholesterol (mg/dL) Goal = less than 40 mg/dL: 45 LDL Cholesterol (mg/dL) Goal = less than 70 mg/dL: 52 Triglycerides (mg/dL) Goal = less than 150 mg/dL: 65 - Diabetes Nutrition Referral for Diabetes: No - Obesity Height: 5 ft 4 in Weight:: 154 lb Weight in Pounds: 154.0 lbs Body Mass Index (BMI): 26.4 Nutritional Referral for Obesity: No - Physical Inactivity Physical Inactivity: Reg Exercise 30 min/day - rope and pully exercise and leg exercises daily., Recreational activity - getting back to doing some wood working and working out in the yard; mowing etc. - Risk Stratification Risk Guidelines: Lowest Risk: Risk Factor for Smoking, Risk Factor for Dyslipidemia, Risk Factor for Diabetes, Risk Factor for Hypertension, Risk Factor for Sedentary Lifestyle, Risk Factor for Depression, Moderate Risk: Risk Factor for Obesity - For Smoking Smoking Risk Guidelines: Smoking Low Risk: None or quit greater than 6 months ago. Smoking Moderate Risk: Smoker or quit 6 months or less ago. Smoking High Risk: Smoker - For Dyslipidemia Dyslipidemia Risk Guidelines: Low Risk: Moderate Risk: High Risk: 15-25% fat 25.1-29% fat >/= 30% fat. <7% sat fat 7-9% sat fat >9% sat fat. <150 mg chol 150-299 mg chol >/= 300 mg chol. LDL <100 LDL 100-129 LDL >/= 130. Chol/HDL ratio <5.0 Chol/HDL ratio 5.0-6.0 Chol/HDL ratio >6.0. Triglycerides <100 Triglycerides 100-149 Triglycerides >/= 150 - For Diabetes Mellitus Diabetes Risk Guidelines: Diabetes Low Risk: HgA1c <6.5% and/or FBG <120. Diabetes Moderate Risk: HgA1c 6.6-7.9% and/or FBG 120-180. Diabetes High Risk: HgA1c >/= 8% and/or FBG >180 - For Obesity/Overweight Obesity/Overweight Risk Guidelines: Obesity Low Risk: BMI <25.0. Obesity Moderate Risk: BMI 25-29.9. Obesity High Risk: BMI >/= 30.0 - For Hypertension Hypertension Risk Guidelines: Hypertension Low Risk: Systolic <120 and Diastolic <80. Hypertension Moderate Risk: Systolic 120-139 and Diastolic 80-89. Hypertension High Risk: Systolic >/= 140 and Diastolic >/= 90 - For Sedentary Lifestyle Sedentary Lifestyle Risk Guidelines: Sedentary Lifestyle Low Risk: >/= 1 ,500 kcal/week. Sedentary Lifestyle Moderate Risk: 700-1,499 kcal/week. Sedentary Lifestyle High Risk: < 700 kcal/week - For Depression Depression Risk Guidelines: Depression Low Risk: Not clinically depressed. Depression Moderate Risk: Mildly depressed. Depression High Risk: Clinically depressed - Family History Family History: Family History (Last Updated 09/03/17 @ 10:26 by Juan Jovel, TOW CAR DRIVER, BATCH TESTER, BS) Mother CHF (congestive heart failure) Brother Myocardial infarction Sister CHF (congestive heart failure) Motivation - Motivation to Participate On a scale of 1 to 10, how prepared are you to commit to attending program?: 6 What do you see as barriers to successfully being able to complete the program? : time if anything What do you see as the benefits of succesfully completing the program? In other words, what do you hope to get out of participating in the program?: doing things better and improving health. Are there issues you are dealing with that will interfere with completing the program?: none Do you have a spouse or signficant other, family or friends who will help support you to complete the program?: Excellent family support system.
[2017-09-03 10:41] VITALS: BP 108/56; BP 118/64; PULSE 56; RESP 16; TEMP 37.1; O2SAT 97; BMI 26.4
[2017-09-03 11:57] VITALS: BP 108/56
== END ==
PROVIDERS: Family Provider Internal Medicine; PCP Internal Medicine; Visit Provider Internal Medicine Cardiovascular Disease
DX: I25.110 Atherosclerotic heart disease of native coronary artery with unstable angina pectoris (principal); I07.1 Rheumatic tricuspid insufficiency; I24.9 Acute ischemic heart disease, unspecified; I10 Essential (primary) hypertension; E78.5 Hyperlipidemia, unspecified; J45.909 Unspecified asthma, uncomplicated; M51.36 Other intervertebral disc degeneration, lumbar region; M19.90 Unspecified osteoarthritis, unspecified site; G47.30 Sleep apnea, unspecified; Z87.19 Personal history of other diseases of the digestive system; Z87.438 Personal history of other diseases of male genital organs; Z95.5 Presence of coronary angioplasty implant and graft; Z98.890 Other specified postprocedural states; Z90.79 Acquired absence of other genital organ(s); Z79.82 Long term (current) use of aspirin; Z79.899 Other long term (current) drug therapy

== ENCOUNTER 2017-10-11 11:30 | Outpatient (RCR) | payer MEDICARE, SELFPAY ==
[2017-08-09 09:27] VITALS: BMI 24.3
[2017-10-04 13:25] VITALS: BP 124/62; BP 158/68
--- NOTE | 2017-10-04 13:25 | CR.ITP_ITS ---
General Information - General Information Admitting Diagnosis: coronary artery stenting - Education/Goals Individual Counselin-Day Assessment: Abnormal Cholesterol Levels, High Blood Pressure Cardiac Rehabilitation Goals: 1. Maintain the individual as the primary focus of care. 2. To improve the patient's quality of life. 3. Identification of cardiac risk factors and provide cardiac risk factor management. 4. Enhance the psychosocial status of the patient. 5. Reconditioning enough to allow the patient to resume customary activities. 6. Control symptoms of cardiac disease Scale for measuring improvement of personal goals: Enter appropriate number in Comments. 2 = Unchanged. 3 = Slightly Better. 4 = Moderate Improvement. 5 = Met my Goal Personal Goals: 30-day Re-assessment: Improve energy level, Get back to work, or to resume activities faster, Improve knowledge of cardiac disease, Improve muscle strength and endurance, Improve diet and eating habits (eat healthier), Control risk factors (learn risk factor modification) Exercise - 30-day Assessment - Visit Date of Eval: 10/04/17 Session #:: 6 - 100% compliance - Stages of Change Stages of Change:: Action - Exercise Prescription Mode:: Treadmill, Airdyne, NuStep Frequency (x/week): 3 Duration:: 30 METs - Progression: 0.5-1 MET as tolerated: 3.5 Target Heart Rate:: 100-106 max 103 - Hypertension Resting Blood Pressure:: 124/62 Peak Exercise Blood Pressure:: 158/68 Medication Changes:: Yes - D/C'd Brilinta added Plavix 75 mg QD, D/C'd imdur - Intervention Home Exercise/Activity Goal:: Sitting Time <3 hrs/day - Education Goals:: Warm-up, RPE OLGA Scale, S/S, Safe Exercise, Self-Monitoring - Exercise Program Goals Exercise Program Goals: Aerobic Activity >30 min, B/P <130/80 Nutrition - 30-Day Assessment - Program Goals Nutrition Program Goals: LDL <70. Total Cholesterol <200. HDL >45. Triglycerides <150. HgbA1C <7%. BMI <25 - Visit Date of Eval: 10/04/17 - Stages of Change Stages of Change:: Action - Lipids Has the patient seen the dietitian?: No - Diabetes Diabetes:: No - Weight Management Weight:: 67.585 kg - Intervention Referral to dietitian:: No Referral to Diabetic Clinic:: No Will attend diet classes:: Yes - Education Attended class for:: Signs & symptoms of hypoglycemia, Signs & symptoms of hyperglycemia, Relate diabetes to coronary artery disease, Healthy eating Tobacco - Initial Assessment - Program Goals Tobacco Program Goals: Complete smoking cessation. Attend education classes. Improve Knowledge Test score - Learning Barriers Learning Barriers: Ready to Learn Tobacco - 30-Day Assessment - Program Goals Tobacco Program Goals: Complete smoking cessation. Attend education classes. Improve Knowledge Test score - Stage of Change Stages of Change:: Action - Learning Barriers Learning Barriers: Participates in education - Family Support Do you have family support?: Yes - Tobacco Use Tobacco Use: Non-smoker Do you use smokeless tobacco?: No - Intervention Smoking Cessation Referral:: No Individual Education/Counseling:: No Education Schedule Given:: Yes - Education Attended class for:: Tobacco triggers, Coronary artery disease, Risk factors, Sexuality, Medical compliance, Cardiac A&P, Angina signs & symptoms Psychosocial - Initial Assess - Target Goals Target Goals: Assess presence or absence of depression. Using a valid screening tool, maximizes coping skills. Positive support system - Psychosocial Test Tool Used:: HANDS Depression Questionnaire - Assistive Devices Fall Risk Assessed:: Yes Psychosocial - 30-Day Assess - Target Goals Target Goals: Assess presence or absence of depression. Using a valid screening tool, maximizes coping skills. Positive support system - Stages of Change Stages of Change:: Action - Psychosocial Test Tool Used:: HANDS Depression Questionnaire - Intervention PS - Interventions: Yes Attend Stress Management Classes, Yes Uses Stress Management Skills, No Referral to Mental Health, No Referral to [facility] Case Management, No Referral to Physician - Education Attended classes for:: Coping techniques, Signs & symptoms of depression, Stress management, Relaxation techniques - Assistive Devices Assistive Devices:: None Fall Risk Assessed:: Yes Patient Health Questionnaire 30-Day Re-eval Assessment 1. Little interest or pleasure in doing things: Several days 2. Feeling down, depressed, or hopeless: Not at all 3. Trouble falling or staying asleep, or sleeping too much: Several days 4. Feeling tired or having little energy: More than half the days 5. Poor appetite or overeating: More than half the days 6. Feeling bad about yourself -- or that you are a failure or have let yourself or your family down: Not at all 7. Trouble concentrating on things, such as reading the newspaper or watching television: Several days 8. Moving or speaking so slowly that other people could have noticed. Or the opposite - being so fidgety or restless that you have been moving around a lot more than usual: Not at all 9. Thoughts that you would be better off , or of hurting yourself in some way: Not at all How difficult have these problems made it for you to do your work, take care of things at home, or get along with other people?: Not difficult at all Total Score: 7 Self-Efficacy 30-Day Re-eval Assessment We would like to know how confident you are in doing certain activities. Please select your confidence level for:: Select your confidence level for the following using the scale 1-10 where 1 is not at all confident and 10 is totally confident. Your score is the average of all 6 responses. Fatigue: How confident are you that you can keep the fatigue caused by your disease from interfering with the things you want to do? Select Number: 6 Physical Discomfort or Pain: How confident are you that you can keep the physical discomfort or pain of your disease from interfering with the things you want to do? Select Number: 6 Emotional Distress: How confident are you that you can keep the emotional distress caused by your disease from interfering with the things you want to do? Select Number: 6 Other Symptoms or Health Problems: How confident are you that you can keep other symptoms or health problems from interfering with the things you want to do? Select Number: 6 Different Tasks and Activities: How confident are you that you can do the different tasks and activities needed to manage your health condition so as to reduce your need to see a doctor? Select Number: 6 Medication: How confident are you that you can do things other than just taking medication to reduce how much your illness affects your everyday life? Select Number: 6 Total Score:: 6
== END 2017-10-12 23:59 ==
LOC: CR 11:30
PROVIDERS: Family Provider Internal Medicine; PCP Internal Medicine; Visit Provider Internal Medicine Cardiovascular Disease
DX: I25.110 Atherosclerotic heart disease of native coronary artery with unstable angina pectoris (principal); Z95.5 Presence of coronary angioplasty implant and graft
CPT/HCPCS: 93798

== ENCOUNTER 2017-11-11 11:30 | Outpatient (RCR) | payer MEDICARE, SELFPAY ==
[2017-08-09 09:27] VITALS: BMI 24.3
[2017-10-13 00:12] VITALS: BP 124/62; BP 158/68
--- NOTE | 2017-11-06 10:55 | PCM.CR.ITP ---
General Information - General Information Admitting Diagnosis: coronary artery stenting - Education/Goals Barriers to Learning: None Individual Counselin-Day Assessment: Abnormal Cholesterol Levels, High Blood Pressure Cardiac Rehabilitation Goals: 1. Maintain the individual as the primary focus of care. 2. To improve the patient's quality of life. 3. Identification of cardiac risk factors and provide cardiac risk factor management. 4. Enhance the psychosocial status of the patient. 5. Reconditioning enough to allow the patient to resume customary activities. 6. Control symptoms of cardiac disease Scale for measuring improvement of personal goals: Enter appropriate number in Comments. 2 = Unchanged. 3 = Slightly Better. 4 = Moderate Improvement. 5 = Met my Goal Personal Goals: 60-day Re-assessment: Improve energy level, Get back to work, or to resume activities faster, Improve knowledge of cardiac disease, Improve muscle strength and endurance, Improve diet and eating habits (eat healthier), Control risk factors (learn risk factor modification) Exercise - 60-Day Assessment - Visit Date of Eval: 11/06/17 Session #:: 19 - Stages of Change Stages of Change:: Action - Exercise Prescription Mode:: Treadmill, Airdyne, NuStep Frequency (x/week): 3 Duration:: 30 METs: 5.5 Target Heart Rate:: 106-112 Max HR 111 - Hypertension Resting Blood Pressure:: 128/64 Peak Exercise Blood Pressure:: 162/80 - Intervention Home Exercise/Activity Goal:: Sitting Time <3 hrs/day - Education Goals:: Warm-up, RPE OLGA Scale, S/S, Safe Exercise, Self-Monitoring - Exercise Program Goals Exercise Program Goals: Aerobic Activity >30 min, B/P <130/80 Nutrition - 60-Day Assessment - Program Goals Nutrition Program Goals: LDL <70. Total Cholesterol <200. HDL >45. Triglycerides <150. HgbA1C <7%. BMI <25 - Visit Date of Eval: 11/06/17 - Stages of Change Stages of Change:: Action - Lipids Has the patient seen the dietitian?: No - Diabetes Diabetes:: No - Intervention Referral to dietitian:: No Referral to Diabetic Clinic:: No Will attend diet classes:: Yes - Education Attended class for:: Signs & symptoms of hypoglycemia, Signs & symptoms of hyperglycemia, Relate diabetes to coronary artery disease, Healthy eating Tobacco - Initial Assessment - Program Goals Tobacco Program Goals: Complete smoking cessation. Attend education classes. Improve Knowledge Test score - Learning Barriers Learning Barriers: Ready to Learn Tobacco - 60-Day Assessment - Program Goals Tobacco Program Goals: Complete smoking cessation. Attend education classes. Improve Knowledge Test score - Stage of Change Stages of Change:: Action - Learning Barriers Learning Barriers: Participates in education - Family Support Do you have family support?: Yes - Tobacco Use Tobacco Use: Non-smoker Do you use smokeless tobacco?: No - Intervention Smoking Cessation Referral:: No Individual Education/Counseling:: No Education Schedule Given:: Yes - Education Attended class for:: Tobacco triggers, Coronary artery disease, Risk factors, Sexuality, Medical compliance, Cardiac A&P, Angina signs & symptoms Psychosocial - 60-Day Assess - Target Goals Target Goals: Assess presence or absence of depression. Using a valid screening tool, maximizes coping skills. Positive support system - Stages of Change Stages of Change:: Action - Psychosocial Test Tool Used:: HANDS Depression Questionnaire - Intervention PS - Interventions: Yes Attend Stress Management Classes, Yes Uses Stress Management Skills, No Referral to Mental Health, No Referral to [facility] Case Management, No Referral to Physician - Education Attended classes for:: Coping techniques, Signs & symptoms of depression, Stress management, Relaxation techniques - Assistive Devices Assistive Devices:: None Fall Risk Assessed:: Yes Patient Health Questionnaire 60-Day Re-eval Assessment 1. Little interest or pleasure in doing things: Several days 2. Feeling down, depressed, or hopeless: Not at all 3. Trouble falling or staying asleep, or sleeping too much: Several days 4. Feeling tired or having little energy: More than half the days 5. Poor appetite or overeating: More than half the days 6. Feeling bad about yourself -- or that you are a failure or have let yourself or your family down: Not at all 7. Trouble concentrating on things, such as reading the newspaper or watching television: Several days 8. Moving or speaking so slowly that other people could have noticed. Or the opposite - being so fidgety or restless that you have been moving around a lot more than usual: Not at all 9. Thoughts that you would be better off , or of hurting yourself in some way: Not at all How difficult have these problems made it for you to do your work, take care of things at home, or get along with other people?: Not difficult at all Total Score: 7 Self-Efficacy 60-Day Re-eval Assessment We would like to know how confident you are in doing certain activities. Please select your confidence level for:: Select your confidence level for the following using the scale 1-10 where 1 is not at all confident and 10 is totally confident. Your score is the average of all 6 responses. Fatigue: How confident are you that you can keep the fatigue caused by your disease from interfering with the things you want to do? Select Number: 7 Physical Discomfort or Pain: How confident are you that you can keep the physical discomfort or pain of your disease from interfering with the things you want to do? Select Number: 7 Emotional Distress: How confident are you that you can keep the emotional distress caused by your disease from interfering with the things you want to do? Select Number: 7 Other Symptoms or Health Problems: How confident are you that you can keep other symptoms or health problems from interfering with the things you want to do? Select Number: 7 Different Tasks and Activities: How confident are you that you can do the different tasks and activities needed to manage your health condition so as to reduce your need to see a doctor? Select Number: 7 Medication: How confident are you that you can do things other than just taking medication to reduce how much your illness affects your everyday life? Select Number: 7 Total Score:: 7
[2017-11-06 11:01] VITALS: BP 128/64; BP 162/80
== END 2017-11-12 23:59 ==
LOC: CR 11:30
PROVIDERS: Family Provider Internal Medicine; PCP Internal Medicine; Visit Provider Internal Medicine Cardiovascular Disease
DX: I25.110 Atherosclerotic heart disease of native coronary artery with unstable angina pectoris (principal); Z95.5 Presence of coronary angioplasty implant and graft
CPT/HCPCS: 93798

== ENCOUNTER 2017-12-13 11:30 | Outpatient (RCR) | payer MEDICARE, SELFPAY ==
[2017-08-09 09:27] VITALS: BMI 24.3
[2017-11-13 00:19] VITALS: BP 128/64; BP 162/80
--- NOTE | 2017-12-06 10:45 | CR.ITP_ITS ---
General Information - General Information Admitting Diagnosis: S/P Coronary artery stenting - Education/Goals Cardiac Rehabilitation Goals: 1. Maintain the individual as the primary focus of care. 2. To improve the patient's quality of life. 3. Identification of cardiac risk factors and provide cardiac risk factor management. 4. Enhance the psychosocial status of the patient. 5. Reconditioning enough to allow the patient to resume customary activities. 6. Control symptoms of cardiac disease Scale for measuring improvement of personal goals: Enter appropriate number in Comments. 2 = Unchanged. 3 = Slightly Better. 4 = Moderate Improvement. 5 = Met my Goal Exercise - 90-Day Assessment - Visit Date of Eval: 12/06/17 Session #:: 32 - Stages of Change Stages of Change:: Action - Exercise Prescription Mode:: Treadmill, Airdyne, NuStep Frequency (x/week): 3 Duration:: 30 METs: 5.5 Target Heart Rate:: 106-112 Max HR 105 - Hypertension Resting Blood Pressure:: 98/64 Peak Exercise Blood Pressure:: 154/72 - Intervention Home Exercise/Activity Goal:: Sitting Time <3 hrs/day - Education Goals:: Warm-up, RPE OLGA Scale, S/S, Safe Exercise, Self-Monitoring - Exercise Program Goals Exercise Program Goals: Aerobic Activity >30 min, B/P <130/80 Nutrition - 90-Day Assessment - Program Goals Nutrition Program Goals: LDL <70. Total Cholesterol <200. HDL >45. Triglycerides <150. HgbA1C <7%. BMI <25 - Visit Date of Eval: 12/06/17 - Stages of Change Stages of Change:: Action - Lipids Has the patient seen the dietitian?: No - Diabetes Diabetes:: No - Weight Management Weight:: 67.585 kg - Intervention Referral to dietitian:: No Referral to Diabetic Clinic:: No Will attend diet classes:: Yes - Education Attended class for:: Signs & symptoms of hypoglycemia, Signs & symptoms of hyperglycemia, Relate diabetes to coronary artery disease, Healthy eating Tobacco - Initial Assessment - Program Goals Tobacco Program Goals: Complete smoking cessation. Attend education classes. Improve Knowledge Test score - Learning Barriers Learning Barriers: Ready to Learn Tobacco - 90-Day Assessment - Program Goals Tobacco Program Goals: Complete smoking cessation. Attend education classes. Improve Knowledge Test score - Stage of Change Stages of Change:: Action - Learning Barriers Learning Barriers: Participates in education - Family Support Do you have family support?: Yes - Tobacco Use Tobacco Use: Non-smoker Do you use smokeless tobacco?: No - Intervention Smoking Cessation Referral:: No Individual Education/Counseling:: No Education Schedule Given:: Yes - Education Attended class for:: Tobacco triggers, Coronary artery disease, Risk factors, Sexuality, Medical compliance, Cardiac A&P, Angina signs & symptoms Psychosocial - Initial Assess - Target Goals Target Goals: Assess presence or absence of depression. Using a valid screening tool, maximizes coping skills. Positive support system - Psychosocial Test Tool Used:: HANDS Depression Questionnaire - Assistive Devices Fall Risk Assessed:: Yes Psychosocial - 90-Day Assess - Target Goals Target Goals: Assess presence or absence of depression. Using a valid screening tool, maximizes coping skills. Positive support system - Stages of Change Stages of Change:: Action - Psychosocial Test Tool Used:: HANDS Depression Questionnaire - Intervention PS - Interventions: Yes Attend Stress Management Classes, Yes Uses Stress Management Skills, No Referral to Mental Health, No Referral to [facility] Case Management, No Referral to Physician - Education Attended classes for:: Coping techniques, Signs & symptoms of depression, Stress management, Relaxation techniques - Assistive Devices Assistive Devices:: None Fall Risk Assessed:: Yes Patient Health Questionnaire 90-Day Re-eval Assessment 1. Little interest or pleasure in doing things: Several days 2. Feeling down, depressed, or hopeless: Not at all 3. Trouble falling or staying asleep, or sleeping too much: Several days 4. Feeling tired or having little energy: More than half the days 5. Poor appetite or overeating: More than half the days 6. Feeling bad about yourself -- or that you are a failure or have let yourself or your family down: Not at all 7. Trouble concentrating on things, such as reading the newspaper or watching television: Several days 8. Moving or speaking so slowly that other people could have noticed. Or the opposite - being so fidgety or restless that you have been moving around a lot more than usual: Not at all 9. Thoughts that you would be better off , or of hurting yourself in some way: Not at all How difficult have these problems made it for you to do your work, take care of things at home, or get along with other people?: Not difficult at all Total Score: 7 Self-Efficacy 90-Day Re-eval Assessment We would like to know how confident you are in doing certain activities. Please select your confidence level for:: Select your confidence level for the following using the scale 1-10 where 1 is not at all confident and 10 is totally confident. Your score is the average of all 6 responses. Fatigue: How confident are you that you can keep the fatigue caused by your disease from interfering with the things you want to do? Select Number: 8 Physical Discomfort or Pain: How confident are you that you can keep the physical discomfort or pain of your disease from interfering with the things you want to do? Select Number: 8 Emotional Distress: How confident are you that you can keep the emotional distress caused by your disease from interfering with the things you want to do? Select Number: 8 Other Symptoms or Health Problems: How confident are you that you can keep other symptoms or health problems from interfering with the things you want to do? Select Number: 8 Different Tasks and Activities: How confident are you that you can do the different tasks and activities needed to manage your health condition so as to reduce your need to see a doctor? Select Number: 8 Medication: How confident are you that you can do things other than just taking medication to reduce how much your illness affects your everyday life? Select Number: 8 Total Score:: 8
[2017-12-06 10:46] VITALS: BP 154/72; BP 98/64
== END 2017-12-13 23:59 ==
LOC: CR 11:30
PROVIDERS: Family Provider Internal Medicine; PCP Internal Medicine; Visit Provider Internal Medicine Cardiovascular Disease
DX: I25.110 Atherosclerotic heart disease of native coronary artery with unstable angina pectoris (principal); Z95.5 Presence of coronary angioplasty implant and graft
CPT/HCPCS: 93798

== ENCOUNTER 2017-12-18 06:43 | Outpatient (RCR) | payer MEDICARE, SELFPAY ==
[2017-08-09 09:27] VITALS: BMI 24.3
[2017-12-14 00:32] VITALS: BP 154/72; BP 98/64
== END 2018-01-12 23:59 ==
LOC: CR 06:43
PROVIDERS: Family Provider Internal Medicine; PCP Internal Medicine; Visit Provider Internal Medicine Cardiovascular Disease
DX: I25.110 Atherosclerotic heart disease of native coronary artery with unstable angina pectoris (principal); Z95.5 Presence of coronary angioplasty implant and graft
CPT/HCPCS: 93798

== ENCOUNTER → 2018-07-17 10:12 | Outpatient (REF) | payer MEDICARE, SELFPAY ==
[2017-08-09 09:27] VITALS: BMI 24.3
--- NOTE | 2018-07-17 10:14 | RAD_ITS ---
STUDY: X-RAY - LEFT SHOULDER REASON FOR EXAM: Pain. TECHNIQUE: 4 view(s) of the shoulder. COMPARISON: None. FINDINGS: Normal glenohumeral articulation. There is acromioclavicular arthrosis. Normal humeral head and visualized proximal humerus. There is superior migration of the humeral head suggestive of rotator cuff pathology with likely pressure erosion of the inferior acromion. There is a possible intra-articular body in the subscapularis recess. Normal visualized pulmonary apex. RAD/Shoulder min 2 Views IMPRESSION: Superior migration of the humeral head suggestive of rotator cuff pathology. Acromioclavicular arthrosis. Possible intra-articular body in the subscapularis recess. Electronically Signed: Alf Will MD at 15:09 EDT Tel , Service support ,
== END ==
LOC: HPRAD 10:12
PROVIDERS: Family Provider Internal Medicine; PCP Internal Medicine; Referring Provider Orthopaedic Surgery; Visit Provider Orthopaedic Surgery
DX: R52 Pain, unspecified (principal)
CPT/HCPCS: 73030

== ENCOUNTER → 2018-10-03 | Outpatient (CLI) | payer MEDICARE, SELFPAY ==
[2017-08-09 09:27] VITALS: BMI 24.3
[2018-10-03 10:05] VITALS: BMI 23.8
--- NOTE | 2018-10-03 10:10 | RAD_ITS ---
STUDY: X-RAY - RIGHT SHOULDER REASON FOR EXAM: Male, 82 years old. Chronic pain. TECHNIQUE: 4 view(s) of the shoulder. COMPARISON: None. FINDINGS: There is severe degenerative arthrosis of the glenohumeral articulation. There is cephalad migration of the humeral head consistent with rotator cuff pathology. There are degenerative changes of the acromioclavicular joint. Normal acromion. Normal humeral head and visualized proximal humerus. There is periarticular soft tissue calcification consistent with a calcific tendinitis. Normal visualized pulmonary apex. RAD/Shoulder min 2 Views IMPRESSION: Degenerative changes. Cephalad migration of the humeral head and system with underlying rotator cuff injury. Calcific tendinitis. Electronically Signed: Beth Denise MD at 19:20 EDT Tel , Service support ,
== END | disposition home or self-care (01) ==
LOC: HPRAD 10:09
PROVIDERS: Family Provider Internal Medicine; PCP Internal Medicine; Referring Provider Physician Assistant; Visit Provider Physician Assistant
DX: M25.511 Pain in right shoulder (principal)
CPT/HCPCS: 73030

== ENCOUNTER → 2019-10-08 15:48 | Outpatient (CLI) | payer MEDICARE, SELFPAY ==
[2017-08-09 09:27] VITALS: BMI 24.3
[2019-10-08 15:31] VITALS: BMI 24.2
--- NOTE | 2019-10-08 15:49 | RAD_ITS ---
STUDY: X-RAY - CERVICAL SPINE REASON FOR EXAM: Male, 83 years old. RIGHT SHOULDER PAIN, NO NECK COMPLAINTS TECHNIQUE: 5 view(s) of the cervical spine were obtained. COMPARISON: None FINDINGS: Normal anterior atlantoaxial articulation. Normal odontoid process. There is straightening. There is slight reversal of curvature at C5-C6. There is normal alignment. 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 There is moderate multilevel degenerative disc disease. Bilateral neural foramina are adequately patent. No significant narrowing. The soft tissue structures are unremarkable. There is no demonstrated fracture of the cervical spine. RAD/Cerv Spine 4 or 5 Views IMPRESSION: No acute pneumonia. Moderate multilevel degenerative disc disease. Electronically Signed: Jeff Brand MD at 15:39 EDT , Service support ,
== END ==
PROVIDERS: PCP Internal Medicine; Referring Provider Orthopaedic Surgery; Visit Provider Orthopaedic Surgery
DX: M19.011 Primary osteoarthritis, right shoulder (principal); M19.012 Primary osteoarthritis, left shoulder; M25.511 Pain in right shoulder; M25.512 Pain in left shoulder
CPT/HCPCS: 72050

== ENCOUNTER → 2019-10-22 08:35 | Outpatient (CLI) | payer MEDICARE, SELFPAY ==
[2017-08-09 09:27] VITALS: BMI 24.3
[2019-10-22 08:35] VITALS: BMI 24.2
--- NOTE | 2019-10-22 08:36 | RAD_ITS ---
STUDY: X-RAY - RIGHT KNEE REASON FOR EXAM: Male, 83 years old. Right knee pain. No injury. TECHNIQUE: 4 view(s) of the knee. COMPARISON: None. FINDINGS: Normal visualized distal femur. Normal visualized proximal tibia and fibula. Normal proximal tibiofibular articulation. There is no acute fracture, dislocation or destructive osseous pathology. There is mild degenerative arthrosis of the medial femorotibial compartment. Normal lateral femorotibial compartment. There is mild degenerative arthrosis of the patellofemoral articulation. There is no demonstrated joint effusion. The soft tissue structures are unremarkable. RAD/Knee 4 or More Views IMPRESSION: Mild arthrosis of the right knee. Electronically Signed: Junior Pineda DO at 17:05 EDT Tel [phone], Service support ,
== END ==
PROVIDERS: PCP Internal Medicine; Referring Provider Physician Assistant; Visit Provider Physician Assistant
DX: M25.561 Pain in right knee (principal)
CPT/HCPCS: 73564

== ENCOUNTER 2019-11-11 09:00 | Outpatient (RCR) | payer MEDICARE, SELFPAY ==
[2017-08-09 09:27] VITALS: BMI 24.3
[2019-10-08 15:31] VITALS: BMI 24.2
--- NOTE | 2019-10-15 09:58 | HP.PTEVAL_ITS ---
Patient's Visit Information CHENCHO DONOVAN is a 83 year old M referred to Physical Therapy by Dr. Ana Le DO with a diagnosis of BILATERAL SHOULDER ARTHRITIS ,CERVICAL DDD. Date of Evaluation: 10/15/19 Physical Therapist: Mark Butler, PT, Cert MDT, OCS - Visit Plan Frequency: 2x /Week Duration: 4 Weeks Plan: PT INERVENTIONS GRADED RTC/SCAPULAR STRENGTHENING,POSTURAL EX'S,,ROM,MODALTIES NEEDED - Subjective This 83 y/o male presents to physical therapy with cervical DDD,shoulder pain. Patient mainly c/o shoulder pain many years. Patient major c/o shoulder pain lateral deltoid occassionly below elbow right worse than left. Patient has h/o right shoulder RTC repair many years ago(2008).Patient symtoms located in cervical spine base of neck. Aggravating factors reaching [place] ,lifting affects ADL's ,housework chores . Patient symptoms affects QOL . Patient denies parathesia/tingling. Patient denies parathesia/tingling.Denies nausea/HERNANDEZ/tinnutus. Patient sleeps good C-PAP .Patient condition affects houseworks and ADLS'. Patient had injections in shoulders last week -cortizone helped some. SOCIAL: . VOCATION: retired. HOBBIES: woodworking - Pain Bilateral Shoulder Pain Intensity (Out of 10): 3 Pain Intensity Range: 10 Bilateral Neck Pain Intensity (Out of 10): 2 Pain Intensity Range: 10 - Objective POSTURE: rounded shoulders head foward. PALPTION: tender AC. NEURO: denies parathesia/tingling,reflexes C5-6-7 1/3 ,MYTOMES intact. CERVICAL AROM: flexion min loss,lateral flexion/ ,rotation /extension min/mod loss. AROM: shoulder right flexion 130 degrees,left difiiculty 90 degrees with subsitution. MMT: right shoulder RTC 3+/5,deltoid 3/5,left 3/5 RTC ,deltoid 3-/5 - Special Tests C/S Radiculapathy - Left Upper limb tension test: Negative C/S Radiculapathy - Right Upper limb tension test: Negative C/S Radiculapathy - Left Spurlings: Negative C/S Radiculapathy - Right Spurlings: Negative C/S Radiculapathy - Left Cervical distraction: Negative C/S Radiculapathy - Right Cervical distraction: Negative Sharp Kelle: Negative Vertebral Artery Test: Negative Alar Ligament Test: Negative R Shoulder External Rotation Lag Test - RC Tear: Negative R Shoulder Supine Impingement Test - RC Tear: Positive R Shoulder Lift Off Test - Subscapular Tear: Positive R Shoulder Drop Sign - IS Test: Negative R Shoulder Empty Can - SS: Positive R Shoulder Belly Press - SupScap: Negative R Shoulder Neer - Impingement: Positive R Shoulder Hunt Jean - Impingement: Positive L Shoulder External Rotation Lag Test - RC Tear: Positive L Shoulder Lift Off Test - Subscapular Tear: Positive L Shoulder Drop Sign - IS Test: Positive L Shoulder Belly Press - SupScap: Positive L Shoulder Neer - Impingement: Positive L Shoulder Hunt Jean - Impingement: Positive - Goals Goal 1:: Indepenant with HEP Goal Time Frame: 2-4 Weeks Goal 2:: Decrease neck and shoulder pain by 50% or > to improve function. Goal Time Frame: 2-4 Weeks Goal 3:: Patient improve cervical ROM for function of recovery Goal Time Frame: 2-4 Weeks Goal 4:: Pateint increase shoulder strength by 1/2 grade to improve function and ADL's. Goal Time Frame: 2-4 Weeks Goal 5:: Patient impove quick dash by 3-5 points or > to improve QOL. Goal Time Frame: 2-4 Weeks - Rehabilitation Potential Physical Therapy Diagnosis: This patient has torn RTC left ,right shoulder RTC 2009 with wekness ,pain as well as cervical pain with decreas ROM affects ADL'S Rehabilitation Potential: Good - Anticipated Interventions Patient/Client Instruction: Educate patient on: Condition, Plan of Care For the Purpose of:: To decrease pain, To increase ROM, To improve muscle performance and motor function, To improve ability to perform ADL's, To increase tolerance to activity/condition/position, To improve ability of physical actions for home/community/work/leisure, To improve health of tissue, To decrease soft tissue restriction, To increase flexibility/ROM, To improve ability to perform tasks related to life management Therapeutic Exercise to Include: Strength training, Postural training, Flexibilty training, Active ROM, Scapular Strength/Stabilization For the Purpose of:: To decrease pain, To increase ROM, To improve muscle performance and motor function, To improve ability to perform ADL's, To increase tolerance to activity/condition/position, To improve ability of physical actions for home/community/work/leisure, To increase flexibility/ROM, To improve ability to perform tasks related to life management TENS: Yes IF ES: Yes Cryotherapy (ice pack, ice massage): Yes Thermo therapy (hot pack): Yes Ultrasound (thermal/non thermal): Yes For the Purpose of:: To decrease pain, To increase ROM, To improve nutrient delivery to tissue, To increase oxygenation perfusion, To improve health of tissue, To decrease soft tissue restriction Thank you for the opportunity to evaluate your patient. For Medicare and Medicare HMO plans, please review the plan of care and approve it. It will need to be FAXED BACK to us at [phone] for Medicare purposes. For Medicare only, by signing this I certify the plan of care. Please let me know if there are questions or concerns regarding this plan of care. Physician Signature: Date:
--- NOTE | 2019-11-11 09:29 | HP.PTREVAL ---
Dr. Ana Le, DO, It has been my pleasure to treat CHENCHO DONOVAN over the last 5 visits for BILATERAL SHOULDER ARTHRITIS ,CERVICAL DDD. Please see the progress note below for an update on the physical therapy plan of care! Subjective: Patient arms left from RTC. Rom better in neck Use arms below 90 degrees Objective/Function: POSTURE: foward head. NEURO: intact. CERVICAL ROM: flexion min loss ,rotation mod lateral flexion mod ,extension mod loss. ROM : LEFT LIMITED TO 90 degrees flexion,right 130 degrees Plan Plan: d/c HEP Goals Goal 1:: Indepenant with HEP Goal Time Frame: 2-4 Weeks Goal Progress: Goal Met Goal 2:: Decrease neck and shoulder pain by 50% or > to improve function. Goal Time Frame: 2-4 Weeks Goal Progress: Goal Met Goal 3:: Patient improve cervical ROM for function of recovery Goal Time Frame: 2-4 Weeks Goal Progress: Goal Met Goal 4:: Pateint increase shoulder strength by 1/2 grade to improve function and ADL's. Goal Time Frame: 2-4 Weeks Goal Progress: Progressing Goal 5:: Patient impove quick dash by 3-5 points or > to improve QOL. Goal Time Frame: 2-4 Weeks Goal Progress: Progressing Anticipated Interventions Patient/Client Instruction: Educate patient on: Condition, Plan of Care For the Purpose of:: To decrease pain, To increase ROM, To improve muscle performance and motor function, To improve ability to perform ADL's, To increase tolerance to activity/condition/position, To improve ability of physical actions for home/community/work/leisure, To improve health of tissue, To decrease soft tissue restriction, To increase flexibility/ROM, To improve ability to perform tasks related to life management Therapeutic Exercise to Include: Strength training, Postural training, Flexibilty training, Active ROM, Scapular Strength/Stabilization For the Purpose of:: To decrease pain, To increase ROM, To improve muscle performance and motor function, To improve ability to perform ADL's, To increase tolerance to activity/condition/position, To improve ability of physical actions for home/community/work/leisure, To increase flexibility/ROM, To improve ability to perform tasks related to life management TENS: Yes IF ES: Yes Cryotherapy (ice pack, ice massage): Yes Thermo therapy (hot pack): Yes Ultrasound (thermal/non thermal): Yes For the Purpose of:: To decrease pain, To increase ROM, To improve nutrient delivery to tissue, To increase oxygenation perfusion, To improve health of tissue, To decrease soft tissue restriction Please do not hesitate to contact me at [phone] by phone or if you have questions or concerns regarding this new plan of care! Sincerely, Mark Butler, PT, Cert MDT, OCS
--- NOTE | 2019-11-11 14:20 | HP.PTDCSUM ---
It has been my pleasure to treat CHENCHO DONOVAN referred by Dr. Ana Le DO, with the diagnosis of BILATERAL SHOULDER ARTHRITIS ,CERVICAL DDD for a total of 5 visit(s). Discharge Date: 11/11/19 Please see the following information for a summary of their discharge status. Subjective: Patient arms left from RTC. Rom better in neck Use arms below 90 degrees Bilateral Shoulder Pain Intensity (Out of 10): 0 Bilateral Neck Pain Intensity (Out of 10): 0 % Improvement: 20 Objective/Function: POSTURE: foward head. NEURO: intact. CERVICAL ROM: flexion min loss ,rotation mod lateral flexion mod ,extension mod loss. ROM : LEFT LIMITED TO 90 degrees flexion,right 130 degrees Goal 1:: Indepenant with HEP Goal Progress: Goal Met Goal 2:: Decrease neck and shoulder pain by 50% or > to improve function. Goal Progress: Goal Met Goal 3:: Patient improve cervical ROM for function of recovery Goal Progress: Goal Met Goal 4:: Pateint increase shoulder strength by 1/2 grade to improve function and ADL's. Goal Progress: Progressing Goal 5:: Patient impove quick dash by 3-5 points or > to improve QOL. Goal Progress: Progressing Plan: d/c HEP If there are questions or concerns regarding this patient's physical therapy, please feel free to call me at [phone]. Thank you for the referral of this patient. Sincerely, Mark Butler, PT, Cert MDT, OCS
== END 2019-11-11 19:00 | disposition home or self-care (01) ==
LOC: PT 09:00
PROVIDERS: PCP Internal Medicine; Referring Provider Orthopaedic Surgery; Visit Provider Orthopaedic Surgery
DX: M19.011 Primary osteoarthritis, right shoulder (principal); M19.012 Primary osteoarthritis, left shoulder; M50.30 Other cervical disc degeneration, unspecified cervical region
CPT/HCPCS: 97110; 97162

== ENCOUNTER 2020-05-01 12:51 | Observation (INO) | payer MEDICARE, SELFPAY ==
[2017-08-09 09:27] VITALS: BMI 24.3
[2019-12-30 11:07] VITALS: BMI 24.2
[2020-05-01] VITALS (10 sets, daily range): BP systolic 136–155; BP diastolic 60–80; PULSE 53–75; RESP 15–18; TEMP 36.3–36.7; O2SAT 96–99; BMI 23.3; BMI 23.1
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
--- NOTE | 2020-05-01 13:02 | RAD_ITS ---
STUDY: X-RAY CHEST REASON FOR EXAM: Male, 84 years old. Onset of confusion this morning, unsteady gait TECHNIQUE: Single AP portable view of the chest. COMPARISON: August 08, 2017 chest x-ray FINDINGS: The lungs are underexpanded. . There is no demonstrated pleural abnormality. Normal size heart. Normal mediastinum and natali. Normal visualized pulmonary arteries. There is atherosclerotic tortuosity of the aortic arch and descending thoracic aorta. There are diffuse degenerative changes of the visualized thoracic spine. There is right greater than left degenerative change of the shoulder joints. There is no demonstrated abnormality of the visualized soft tissue structures of the upper abdomen. RAD/Chest 1 View (Portable) IMPRESSION: Underexpansion of the lungs. Tortuous aorta. Mild cardiomegaly. Electronically Signed: Cielo Mccoy MD at 14:15 EST Tel , Service support ,
--- NOTE | 2020-05-01 13:03 | EKG12_ITS ---
Test Reason : CONFUSION Blood Pressure : / mmHG Vent. Rate : 055 BPM Atrial Rate : 055 BPM P-R Int : 198 ms QRS Dur : 092 ms QT Int : 434 ms P-R-T Axes : 063 -29 102 degrees QTc Int : 415 ms Sinus bradycardia Left ventricular hypertrophy with repolarization abnormality Abnormal ECG Confirmed by COLLIN LOAIZA, VEL ([id number]), index editor DIONTE FIELDS ([id number]) on 05/04/2020 6:53:55 AM Referred By: CANDELARIA Confirmed By:VEL POLANCO MD
[2020-05-01 13:10] LABS: Bedside Glucose 119 mg/dL (70-110)
[2020-05-01 13:11] LABS: Absolute Lymphocyte Count 0.78 X10^3/uL (0.83-4.51); Absolute Neutrophil Count 5.1 X10^3/uL (2.0-7.7); Basophil# 0.02 X10^3/uL; Basophil% 0.3 % (0-1); Eosinophil# 0.13 X10^3/uL; Hematocrit 41.2 % (40-54); Hemoglobin 13.6 g/dL (13.0-16.5); Lymphocyte # 0.78 X10^3/ul (4.0); Lymphocyte % 11.8 % (19-41); Mean Corpuscular Hgb 30.6 pg (27.0-32.0); Mean Corpuscular Volume 92.6 fL (80-94); Mean Platelet Vol. 9.1 fl (6.2-12.0); Monocyte# 0.58 X10^3/uL; Monocyte% 8.8 % (0-10); NRBC Flagged by Analyzer 0 % (0-5); Neutrophil # 5.06 X10^3/uL (2.7-7.7); Neutrophil % 76.5 % (47-70); Platelet Count 230 K/mm3 (150-450); RBC Distribution Width CV 11.6 % (11.6-14.6); Red Blood Count 4.45 M/mm3 (4.6-6.2); White Blood Count 6.6 K/mm3 (4.4-11.0)
[2020-05-01 13:24] LABS: Bacteria 0 SEEN /hpf (None Seen); Mucous, Urine 0 SEEN /hpf (<or=2+); Red Blood Cells-Urine 0 SEEN /hpf (0-5); White Blood Cells 0 SEEN /hpf (0-5)
[2020-05-01 13:25] LABS: Color, Urine Yellow (Yellow); Glucose, Dipstick Normal (Normal); Ketone-Dipstick Negative (Negative); Leukocyte Esterase-Dipstick Negative /ul (Negative); Nitrite-Dipstick Negative (Negative); Occult Blood-Urine Negative /ul (Negative); Protein-Dipstick Negative (Negative); Specific Gravity, Urine 1.015 (1.002-1.030); Urine Bilirubin Dipstick Negative (Negative); Urine Clarity Clear (Clear); Urine Urobilinogen Normal (Normal)
[2020-05-01 13:30] LABS: ALB/GLOB Ratio 1.3 RATIO (0.9-2.4); AST(SGOT) 21 U/L (15-37); Alanine Aminotransfer ALT/SGPT 27 U/L (16-61); Albumin, Serum 3.4 g/dL (3.2-5.0); Alkaline Phosphatase 67 U/L (45-117); Anion Gap 3 (5-15); BUN 21 mg/dL (7-18); BUN/Creat Ratio 22.3 RATIO (10-20); Calcium,Total 8.6 mg/dL (8.5-10.1); Chloride 111 mmol/L (98-107); Creatinine, Serum 0.94 mg/dL (0.70-1.30); EST Glomerular Filtration Rate 81 mL/min (>60); Est Glom Filt Rate - Afr Amer 98 mL/min (>60); Estimated Creatinine Clearance 56.65 ml/min; Globulin 2.7 g/dL (2.2-4.2); Glucose 88 mg/dL (74-106); Potassium 4.2 mmol/L (3.5-5.1); Protein, Total 6.1 g/dL (6.4-8.2); Sodium Level 142 mmol/L (136-145)
[2020-05-01 13:35] LABS: Squamous Epithelial Cells - UA 0-5 SEEN /hpf (0-5)
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
[2020-05-01] MEDS: Aspirin 81 MG TAB.CHEW 324 MG PO (15:09)
--- NOTE | 2020-05-01 16:13 | PCS.PANDOC ---
PANDEMIC DOCUMENTATION INITIATED: Date: 05/01/2020 Time: 1600
--- NOTE | 2020-05-01 16:19 | ECHOD_ITS ---
Reason For Study: CVA Procedure This was a 2D Doppler, Color Flow transthoracic echocardiogram. Exam performed portable in patient room. Left Ventricle Normal LV size. Left ventricular systolic function is normal. The estimated ejection fraction is 55 %. Stage 1 diastolic dysfunction. No regional wall motion abnormalities noted. Right Ventricle Normal RV size. Normal systolic function. Atria Normal left atrium. Normal right atrium. Bubble contrast study negative for right to left interatrial shunt. Mitral Valve Normal mitral valve. Mild (1+) mitral valve insufficiency. Tricuspid Valve Normal tricuspid valve. Mild tricuspid valve insufficiency. Pulmonary artery systolic pressure is 42 mmHg. Aortic Valve Trisinus/trileaflet aortic valve. Pulmonic Valve Normal pulmonic valve. Great Vessels Mildly dilated aortic root. The pulmonary artery is normal size. Normal inferior vena cava. Pericardium/Pleural No pericardial effusion. Medication Performed a rapid injection of agitated mix of 9 cc saline and 1cc air to assess for atrial septal defect. MMode/2D Measurements & Calculations LVIDd: 4.2 cm IVSd: 0.91 cm Ao root diam: 4.0 cm LVIDs: 3.1 cm LVPWd: 0.91 cm RVDd: 4.0 cm FS: 26.3 % LAV(MOD-bp): 57.0 ml LVAd ap4: 33.0 cm2 SV(MOD-sp4): 52.2 ml LAV(MOD-bp) Indexed: 32.1 ml/m2 EDV(MOD-sp4): 95.0 ml LAV(MOD-sp2): 67.2 ml EDV(sp4-el): 99.1 ml LAV(MOD-sp4): 47.3 ml LVAs ap4: 19.9 cm2 ESV(MOD-sp4): 42.8 ml ESV(sp4-el): 44.6 ml EF(MOD-sp4): 54.9 % EF(sp4-el): 55.0 % SV(sp4-el): 54.5 ml LA A4 area: 18.0 cm2 LA dimension(2D): 2.9 cm RA A4 area: 13.5 cm2 Time Measurements MV dec time: 0.22 sec Doppler Measurements & Calculations MV E max tani: 57.8 cm/sec Lat Peak E' Tani: 7.9 cm/sec Med Peak E' Tani: 5.0 cm/sec MV A max tani: 100.5 cm/sec E/E' lat: 7.3 E/E' med: 11.5 MV E/A: 0.58 Ao V2 max: 122.5 cm/sec LV V1 max: 95.7 cm/sec PA V2 max: 90.4 cm/sec Ao max P.0 mmHg LV V1 max P.7 mmHg PI end-d tani: 110.9 cm/sec TR max tani: 309.3 cm/sec TR max P.3 mmHg Interpretation Summary Normal LV size. Left ventricular systolic function is normal. The estimated ejection fraction is 55 %. Stage 1 diastolic dysfunction. Pulmonary artery systolic pressure is 42 mmHg. Bubble contrast study negative for right to left interatrial shunt. Ordering Physician: Elana De Leon Referring Physician: LANIE MAYO Performed By: Beata Truong, RDCS, RVT
[2020-05-01] MEDS: 0.9% Normal Saline 1,000 ML 100 ML IV (16:59)
[2020-05-01] MEDS: 0.9% Saline Lock 10 ML Syringe IV (17:00)
[2020-05-01 17:03] LABS: Hemoglobin A1c 5.6 % (3.8-5.6)
[2020-05-01 17:05] LABS: Magnesium 2.2 mg/dL (1.6-2.6); Thyroid Stim Hormone (TSH) 2.57 uIU/mL (0.358-3.74)
[2020-05-01] MEDS: Atorvastatin Calcium 80 MG Tablet PO (20:16)
[2020-05-01] MEDS: Famotidine 20 MG Tablet PO (20:16)
[2020-05-01] MEDS: Fluticasone 0.05% 1 SPRAY NASAL.SRY NASAL (20:55)
[2020-05-02] VITALS (8 sets, daily range): BP systolic 131–163; BP diastolic 76–84; PULSE 45–87; RESP 18; TEMP 36.3–36.6; O2SAT 96–97
[2020-05-02 06:38] LABS: Absolute Lymphocyte Count 0.95 X10^3/uL (0.83-4.51); Basophil# 0.01 X10^3/uL; Basophil% 0.2 % (0-1); Eosinophil# 0.11 X10^3/uL; Hematocrit 39.1 % (40-54); Hemoglobin 12.8 g/dL (13.0-16.5); Lymphocyte # 0.95 X10^3/ul (4.0); Lymphocyte % 17.1 % (19-41); Mean Corp Hgb Conc 32.7 g/dL (32-36); Mean Corpuscular Volume 91.8 fL (80-94); Mean Platelet Vol. 8.7 fl (6.2-12.0); Monocyte# 0.48 X10^3/uL; Monocyte% 8.7 % (0-10); NRBC Flagged by Analyzer 0 % (0-5); Neutrophil # 3.97 X10^3/uL (2.7-7.7); Neutrophil % 71.6 % (47-70); Platelet Count 189 K/mm3 (150-450); RBC Distribution Width CV 11.7 % (11.6-14.6); RBC Distribution Width SD 39.1 fl (35.1-43.9); Red Blood Count 4.26 M/mm3 (4.6-6.2); White Blood Count 5.5 K/mm3 (4.4-11.0)
[2020-05-02 07:09] LABS: ALB/GLOB Ratio 1.2 RATIO (0.9-2.4); AST(SGOT) 12 U/L (15-37); Alanine Aminotransfer ALT/SGPT 24 U/L (16-61); Albumin, Serum 3.1 g/dL (3.2-5.0); Alkaline Phosphatase 60 U/L (45-117); Anion Gap 4 (5-15); BUN 16 mg/dL (7-18); BUN/Creat Ratio 18.4 RATIO (10-20); Calcium,Total 8.6 mg/dL (8.5-10.1); Chloride 113 mmol/L (98-107); Cholesterol 93 mg/dL (200); Creatinine, Serum 0.87 mg/dL (0.70-1.30); EST Glomerular Filtration Rate 89 mL/min (>60); Est Glom Filt Rate - Afr Amer 108 mL/min (>60); Estimated Creatinine Clearance 60.65 ml/min; Globulin 2.5 g/dL (2.2-4.2); Glucose 85 mg/dL (74-106); High Density Lipoprotein 45 mg/dL; Potassium 3.7 mmol/L (3.5-5.1); Protein, Total 5.6 g/dL (6.4-8.2); Sodium Level 142 mmol/L (136-145); Triglycerides 49 mg/dL; Very Low Density Lipoprotein 10 mg/dL (5-40)
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
--- NOTE | 2020-05-02 09:00 | MRI_ITS ---
STUDY: MRA OF THE HEAD WITHOUT CONTRAST REASON FOR EXAM: Male, 84 years old. cva, confusion, unsteady gait TECHNIQUE: 3-D [id number] (TOF) imaging was performed with MIPs. The study was performed unenhanced. COMPARISON: None. FINDINGS: Normal bilateral petrous carotid arteries. Normal right cavernous carotid artery with a normal supraclinoid bifurcation. Normal left cavernous carotid artery with a normal supraclinoid bifurcation. Normal right A1 segments of the anterior cerebral artery. Normal left A1 segments of the anterior cerebral artery. Normal intact anterior communicating artery (ACOM). Normal bilateral A2 segments of the anterior cerebral arteries. Normal right M1 and M2 segments of the middle cerebral arteries, with a normal M1 bifurcation. Normal left M1 and M2 segments of the middle cerebral arteries, with a normal M1 bifurcation. Normal right posterior communicating artery (PCOM). Normal left posterior communicating artery (PCOM). Normal bilateral vertebral arteries. Normal basilar artery with a normal basilar bifurcation. The visualized bilateral superior cerebellar (SCA) arteries are normal. Normal bilateral P1, P2 and visualized P3 segments of the posterior cerebral arteries. There is no demonstrated aneurysm of the [place]. There is no major vessel occlusion or hemodynamically significant stenosis. There is no demonstrated abnormality of the visualized brain. MRI/MRA Head ONLY without Contrast IMPRESSION: Normal MRA of the head Electronically Signed: Quentin Schaefer MD at 13:18 EST Tel , Service support ,
--- NOTE | 2020-05-02 09:00 | MRI_ITS ---
STUDY: MRI BRAIN WITHOUT CONTRAST REASON FOR EXAM: Male, 84 years old. cva, confusion, unsteady gait TECHNIQUE: Standardized multiplanar fat and water weighted pulse sequences were obtained. COMPARISON: CT 05/01/2020 FINDINGS: There is mild cerebral atrophy with widening of the extra-axial spaces and ventricular dilatation. There are a limited number of small white matter hyperintensities, distributed throughout the deep white matter tracts of the cerebral hemispheres, consistent with mild chronic white matter ischemic changes. There is no evidence for recent intracranial ischemia or other cause of cytotoxic edema on diffusion weighted imaging (DWI). Normal T2* images of the brain without demonstrated susceptibility artifact. There is no demonstrated hemosiderin stain. Normal bilateral basal ganglia. Normal thalami. There is no extra-axial fluid accumulation. Normal flow voids within the major intracranial circulation suggesting patency by spin echo criteria. Normal sella turcica, pituitary gland, infundibular stalk, optic chiasm and hypothalamus. Normal tectal plate and pineal gland. Normal midbrain, bandar and medulla. Normal cerebellum. Normal basal cisterns. Normal bilateral temporal bones. Normal bilateral internal auditory canals. No demonstrated orbital abnormality, within the constraints of a routine brain study. Normal visualized paranasal sinuses. Normal calvarium and skull base. Normal visualized soft tissue structures. Normal visualized upper cervical spine. MRI/Brain without Contrast IMPRESSION: Involutional changes of the brain, as described above. No acute infarct. Electronically Signed: Quentin Schaefer MD at 13:18 EST Tel , Service support ,
--- NOTE | 2020-05-02 09:00 | MRI_ITS ---
STUDY: MRA NECK WITHOUT CONTRAST REASON FOR EXAM: Male, 84 years old. cva, confusion, unsteady gait TECHNIQUE: Source images were obtained, MIPs were performed. The study was performed unenhanced. COMPARISON: None. FINDINGS: RIGHT CAROTID ARTERIES: Normal right common carotid artery (CCA). Normal right common carotid bulb. Normal origin of the right internal carotid (ICA) artery without a hemodynamically significant stenosis. Normal visualized cervical portion of the right internal carotid artery. Normal origin of the right external carotid artery (ECA). LEFT CAROTID ARTERIES: Normal left common carotid artery (CCA). Normal left common carotid bulb. Normal origin of the left internal carotid (ICA) artery without a hemodynamically significant stenosis. Normal visualized cervical portion of the left internal carotid artery. Normal origin of the left external carotid artery (ECA). VERTEBRAL ARTERIES: Normal antegrade flow within the bilateral vertebral artery without a hemodynamically significant stenosis. MRI/MRA Neck without Contrast IMPRESSION: Normal bilateral cervical carotid and vertebral arteries. Pending Final Proof Editing
[2020-05-02] MEDS: Enoxaparin 40 MG/0.4 ML Syringe SC (09:46)
[2020-05-02] MEDS: Aspirin 81 MG TAB.CHEW PO (09:46)
[2020-05-02] MEDS: Famotidine 20 MG Tablet PO (09:46)
[2020-05-02] MEDS: Tolterodine Tartrate 2 MG CAP.SA PO (09:46)
[2020-05-02] MEDS: Finasteride 5 MG Tablet PO ×2 (09:47)
--- NOTE | 2020-05-02 14:17 | CASEMGMT ---
SW completed a PHQ 9 with patient and he scored a 1 which indicates minimal depression. He denied need for counseling resources. Layne POOLE MSW
--- NOTE | 2020-05-02 14:51 | TELEMED_ITS ---
[facility] Tele[facility] has confirmed receipt of a request for visit. This document confirms receipt of the order initiating the consult. To find the results of the consultation, please view the patient's reports for the scanned Telemed Consult.
--- NOTE | 2020-05-02 16:54 | DCINST_ITS ---
- Discharge Diagnoses Current Active Problems: Current Active and Chronic Problems (Last Reviewed 09/25/19 @ 13:[address] Alex Mcgregor MD) TIA (transient ischemic attack) (Acute) BPH (benign prostatic hyperplasia) (Chronic) Chronic asthma (Chronic) Allergic rhinitis (Chronic) GERD (gastroesophageal reflux disease) (Chronic) Atherosclerosis of coronary artery without angina pectoris (Chronic) Essential (primary) hypertension (Chronic) HLD (hyperlipidemia) (Chronic) You will use the following diet at home:: Regular Your food should be the consistency of: Regular Your liquids should be the consistency of: Regular/Thin Discharge Activity: May Not Drive Weight Bearing Status: Weight bearing as tolerated Call your doctor if you observe: Fever of 101 or Higher, Coldness, Increased Pain, Numbness or Tingling, Change in Color, Inability to urinate, Inability to have a bowel movement, Shortness of breath, Dizziness, Fainting spells, Swelling in the ankles, Chest pain, Prolonged hiccoughing, Increased palpitations (irregular heartbeat), Calf discomfort, Uncontrolled pain Additional Instructions: 30-day event monitor approved by Dr. Mcgregor Allergies/Adverse Reactions: Allergies Penicillins Allergy (Verified 05/01/20 12:54) Hives antihistamines Adverse Reaction (Uncoded 05/01/20 12:54) unknown Medications to take at Discharge Aspirin [Aspirin, Baby] 81 mg PO DAILY@0800 06/07/13 Metoprolol Tartrate [Lopressor (beta christiana)] 12.5 mg PO BID 06/07/13 Nitroglycerin (INPATIENT USE) [Nitrostat] 0.4 mg SUBLINGUAL Q5M PRN 07/23/13 Fluticasone Propionate [Flonase Allergy Relief] 1 spray NS QHS PRN 11/11/14 Finasteride [Proscar] 5 mg PO DAILY 08/08/17 atorvastatin 80 mg tablet 80 mg PO QHS #90 tab 09/10/17 lisinopril 5 mg tablet 5 mg PO DAILY #90 tab 09/10/17 Kenalog 40 mg/mL suspension for injection 80 mg INTRAARTIC ONCE #2 ml NS 07/17/18 acetaminophen 500 mg tablet 1,000 mg PO TID tab 09/25/19 psyllium husk 0.4 gram capsule 0.4 g PO DAILY PRN 09/25/19 oxybutynin chloride 10 mg tablet,extended release 24 hr 10 mg PO DAILY tab 03/28/20 Clopidogrel Bisulfate [Plavix] 75 mg PO DAILY #30 tab 05/02/20 The following prescriptions were given: Clopidogrel Bisulfate [Plavix] 75 mg PO DAILY #30 tab Transmission Status: Pending to [facility] Primary Care Physician: Adrian Galeana MD [Primary Care Provider] - Please follow up with your Primary Care Physician in: In 1 to 2 weeks Test Results: Test results from this visit will be discussed in further detail at your follow- up appointment, if applicable. Please Follow Up With: Bryan Osman MD When: in 2-4 weeks
--- NOTE | 2020-05-02 17:01 | PCM.DC.SUM ---
Discharge Date and Diagnosis - Problem List Patient Problems: Active and Suspected Problems (Last Reviewed 09/25/19 @ 13:[address] Alex Mcgregor MD) TIA (transient ischemic attack) (Acute) Date of Admission: 05/01/20 Date of Discharge: 05/02/20 - Primary Discharge Diagnosis Acute Problems: Active Problems (Last Reviewed 09/25/19 @ 13:[address] Alex Mcgregor MD) TIA (transient ischemic attack) (Acute) - Secondary Discharge Diagnosis Chronic Problems: Chronic Problems (Last Reviewed 09/25/19 @ 13:[address] Alex Mcgregor MD) BPH (benign prostatic hyperplasia) (Chronic) Chronic asthma (Chronic) Allergic rhinitis (Chronic) GERD (gastroesophageal reflux disease) (Chronic) Atherosclerosis of coronary artery without angina pectoris (Chronic) Essential (primary) hypertension (Chronic) HLD (hyperlipidemia) (Chronic) Hospital Course and Treatment Imaging Results: 05/02/20 09:00 Brain without Contrast [MRI] Routine MRA Head ONLY without Contrast [MRI] Routine MRA Neck without Contrast [MRI] Routine Operations: None Summary of Care Provided: The patient is a 84 year old M with history of hypertension and dyslipidemia, BPH status post TURP was admitted with transient aphasia that started about 11 AM on 03/01 and resolved in about 10 minutes. Patient was admitted in PCU. On exam NIH stroke scale 0. MRI brain, MRA head and neck were done and no acute infarct found. 2D echo EF 55%. Bubble contrast study was negative for [id number] interatrial shunt. Normal left atrium. TSH normal. A1c 5.6%. Patient was evaluated by PT OT and speech therapies. [facility] neurology consult was done. Neurologist recommended aspirin Plavix dual antiplatelet agent for 1 month and then aspirin 81 daily. Follow-up neurology for EEG as an outpatient. 30-day event monitor. Patient is already on 80 mg atorvastatin. Fasting profile within normal limit. Patient other comorbidities include coronary artery status post PCI/SKYE in LAD, circumflex, RCA, hypertension, dyslipidemia, A. fib status post TRT, chronic asthma stable with allergic rhinitis. 2D echo showed mild TR, RVSP 42 mmHg, mild MR/TR suggestive of mild valvular heart disease. Discharge medication reconciliation done. Discharge follow-up instructions completed. Discharge process discussed with the patient and all questions were answered to patient's satisfaction. Total time spent, exact 35 minutes on discharge meds reconciliation, examination, coordination of care with nurses and ancillary staff, review of imaging and blood test and discussion with the patient on follow-up instructions Laboratory Results 05/02/20 06:30: WBC 5.5, RBC 4.26 L, Hgb 12.8 L, Hct 39.1 L, MCV 91.8, MCH 30.0, MCHC 32.7, RDW Std Deviation 39.1, RDW Coeff of Shelia 11.7, Plt Count 189, MPV 8.7, Immature Gran % (Auto) 0.400, Neut % (Auto) 71.6 H, Lymph % (Auto) 17.1 L, [place] % (Auto) 8.7, Eos % (Auto) 2.0, Baso % (Auto) 0.2, Absolute Neuts (auto) 4.0, Absolute Lymphs (auto) 0.95, Nucleated RBC % 0 05/02/20 06:30: Sodium 142, Potassium 3.7, Chloride 113 H, Carbon Dioxide 25.0, Anion Gap 4 L, BUN 16, Creatinine 0.87, Estim Creat Clear Calc 60.65, Est GFR (MDRD) Af Amer 108, Est GFR (MDRD) Non-Af 89, BUN/Creatinine Ratio 18.4, Glucose 85, Calcium 8.6, Total Bilirubin 0.60, AST 12 L, ALT 24, Alkaline Phosphatase 60, Total Protein 5.6 L, Albumin 3.1 L, Globulin 2.5, Albumin/Globulin Ratio 1.2, Triglycerides 49, Cholesterol 93, LDL Cholesterol 38, VLDL Cholesterol 10, HDL Cholesterol 45 Clinical Impression(s) from Imaging Studies Brain CT 05/01/20 13:02 IMPRESSION: Atrophy no evidence of acute hemorrhage infarct or edema. Electronically Signed: Cielo Mccoy MD at 13:35 EST Tel , Service support , Chest X-Ray 05/01/20 13:02 IMPRESSION: Underexpansion of the lungs. Tortuous aorta. Mild cardiomegaly. Electronically Signed: Cielo Mccoy MD at 14:15 EST Tel , Service support , Brain MRI 05/02/20 09:00 IMPRESSION: Involutional changes of the brain, as described above. No acute infarct. Head MRA 05/02/20 09:00 IMPRESSION: Normal MRA of the head Neck MRA 05/02/20 09:00 IMPRESSION: Normal bilateral cervical carotid and vertebral arteries. Patient Problems: Active and Suspected Problems (Last Reviewed 09/25/19 @ 13:[address] Alex Mcgregor MD) TIA (transient ischemic attack) (Acute) Objective: Seen and examined. Afebrile Heart rate and blood pressure in permissive hypertensive range. Physical exam General: Alert, Oriented x3, Cooperative HEENT: Atraumatic, PERRLA, EOMI, Normocephalic. No significant visual field loss on visual confrontation test. Oral: No Gingival or Mucosal Lesions/ Ulcerations Neck: Supple, No JVD, Negative Carotid Bruits Lungs: Air entry diminished in bilateral lung bases. No crepitation/rhonchi Cardiovascular: Regular rate, Regular Rhythm, Normal S1, Normal S2, No murmurs Abdomen: Bowel Sounds Present, Soft, Non Tender, Non-Distended : No renal angle tenderness. No suprapubic tenderness. Extremities: No edema, Capillary Refill Less than 3 Seconds Skin: No rashes, No breakdown Musculoskeletal: No Tenderness to Palpation of Joints or Extremities Neurological: NIH stroke scale 0. Muscle strength 5/5 at major joints. Chronic left-sided facial droop. Deep Tendon Reflexes 2+/4 Psych/Mental Status: Normal Affect, Appropriate. - Physical Exam Vitals/I&O's: Vital Signs Temp Pulse Resp BP Pulse Ox 97.3 F L 84 18 131/76 H 97 05/02/20 13:40 05/02/20 13:40 05/02/20 13:40 05/02/20 13:40 05/02/20 13:40 Oxygen Delivery Method Room Air Weight: 144 lb 6.444 oz Body Mass Index (BMI) 23.1 Intake and Output for Last 24 Hours 04/30/20 05/01/20 05/02/20 23:59 23:59 23:59 Intake Total 670 / 670 1158.33 / 1158.33 Output Total 300 / 300 Balance 370 / 370 1158.33 / 1158.33 Laboratory Results 05/01/20 13:00: Magnesium 2.2, TSH 2.57 05/01/20 13:00: Hemoglobin A1c 5.6 05/02/20 06:30: WBC 5.5, RBC 4.26 L, Hgb 12.8 L, Hct 39.1 L, MCV 91.8, MCH 30.0, MCHC 32.7, RDW Std Deviation 39.1, RDW Coeff of Shelia 11.7, Plt Count 189, MPV 8.7, Immature Gran % (Auto) 0.400, Neut % (Auto) 71.6 H, Lymph % (Auto) 17.1 L, [place] % (Auto) 8.7, Eos % (Auto) 2.0, Baso % (Auto) 0.2, Absolute Neuts (auto) 4.0, Absolute Lymphs (auto) 0.95, Nucleated RBC % 0 05/02/20 06:30: Sodium 142, Potassium 3.7, Chloride 113 H, Carbon Dioxide 25.0, Anion Gap 4 L, BUN 16, Creatinine 0.87, Estim Creat Clear Calc 60.65, Est GFR (MDRD) Af Amer 108, Est GFR (MDRD) Non-Af 89, BUN/Creatinine Ratio 18.4, Glucose 85, Calcium 8.6, Total Bilirubin 0.60, AST 12 L, ALT 24, Alkaline Phosphatase 60, Total Protein 5.6 L, Albumin 3.1 L, Globulin 2.5, Albumin/Globulin Ratio 1.2, Triglycerides 49, Cholesterol 93, LDL Cholesterol 38, VLDL Cholesterol 10, HDL Cholesterol 45 Current Medications Acetaminophen (Acetaminophen 325 Mg Tablet) 650 mg PO Q6H PRN PRN PRN Reason: Pain Score 1-10/Temp > 100.7 F Albuterol Sulfate (Albuterol 2.5 Mg/3 Ml Vial.Neb.) 2.5 mg INHALATION Q2H PRN PRN PRN Reason: Dyspnea, wheezing Aspirin (Aspirin 81 Mg Tab.Chew) 81 mg PO DAILY@0800 [facility] Last Admin: 05/02/20 09:46 Dose: 81 mg Documented by: Atorvastatin Calcium (Atorvastatin Calcium 80 Mg Tablet) 80 mg PO QHS [facility] Last Admin: 05/01/20 20:16 Dose: 80 mg Documented by: Enoxaparin Sodium (Enoxaparin 40 Mg/0.4 Ml Syringe) 40 mg SC DAILY [facility] Last Admin: 05/02/20 09:46 Dose: 40 mg Documented by: Famotidine (Famotidine 20 Mg Tablet) 20 mg PO BID [facility] Last Admin: 05/02/20 09:46 Dose: 20 mg Documented by: Finasteride (Finasteride 5 Mg Tablet) 5 mg PO DAILY [facility] Last Admin: 05/02/20 09:47 Dose: 5 mg Documented by: Fluticasone Propionate (Fluticasone 0.05% 1 [place] Nasal.Sry) 1 spray NASAL QHS [facility] Last Admin: 05/01/20 20:55 Dose: 1 spray Documented by: Guaifenesin (Guaifenesin 10 Ml Udc (200mg/10ml)) 20 ml PO Q4H PRN PRN PRN Reason: COUGH Hydralazine HCl (Hydralazine 20 Mg/Ml Vial) 5 mg IV Q30M PRN PRN Reason: to maintain BP goals Labetalol HCl (Labetalol (Prefilled) 20 Mg/4 Ml) 10 - 20 mg IV Q10M PRN PRN PRN Reason: to Maintain BP Goals Melatonin (Melatonin 3 Mg Tablet) 3 mg PO QHS PRN PRN PRN Reason: INSOMNIA Nitroglycerin (Nitroglycerin (Inpatient Use) 0.4 Mg Tab.Subl) 0.4 mg SUBLINGUAL Q5M PRN PRN Reason: CARDIAC/CHEST PAIN Prochlorperazine Edisylate (Prochlorperazine 10 Mg/2 Ml Vial) 5 mg IV Q4H PRN PRN PRN Reason: Breakthrough Nausea/Vomiting Psyllium Hydrophilic Mucilloid (Psyllium 1 Packet) 1 packet PO DAILY PRN PRN PRN Reason: Constipation Senna/Docusate Sodium (Senna/Docusate Sodium 1 Tablet) 2 tablet PO BID PRN PRN PRN Reason: Constipation Sodium Chloride (0.9% Saline Lock 10 Ml Syringe) 10 - 40 ml IV UD PRN PRN Reason: SALINE FLUSH Last Admin: 05/01/20 17:00 Dose: 10 ml Documented by: Throat Lozenges (Benzocaine/Menthol 1 Lozenge) 1 lozenge MUCOUS MEM Q2H PRN PRN PRN Reason: SORE THROAT Tolterodine Tartrate (Tolterodine Tartrate 2 Mg Cap.Sa) 2 mg PO DAILY [facility] Last Admin: 05/02/20 09:46 Dose: 2 mg Documented by: Discharge Activity: May Not Drive Weight Bearing Status: Weight bearing as tolerated Call your doctor if you observe: Fever of 101 or Higher, Coldness, Increased Pain, Numbness or Tingling, Change in Color, Inability to urinate, Inability to have a bowel movement, Shortness of breath, Dizziness, Fainting spells, Swelling in the ankles, Chest pain, Prolonged hiccoughing, Increased palpitations (irregular heartbeat), Calf discomfort, Uncontrolled pain Home Medications: Medications to take at Discharge Aspirin [Aspirin, Baby] 81 mg PO DAILY@0800 06/07/13 Metoprolol Tartrate [Lopressor (beta christiana)] 12.5 mg PO BID 06/07/13 Nitroglycerin (INPATIENT USE) [Nitrostat] 0.4 mg SUBLINGUAL Q5M PRN 07/23/13 Fluticasone Propionate [Flonase Allergy Relief] 1 spray NS QHS PRN 11/11/14 Finasteride [Proscar] 5 mg PO DAILY 08/08/17 atorvastatin 80 mg tablet 80 mg PO QHS #90 tab 09/10/17 lisinopril 5 mg tablet 5 mg PO DAILY #90 tab 09/10/17 Kenalog 40 mg/mL suspension for injection 80 mg INTRAARTIC ONCE #2 ml NS 07/17/18 acetaminophen 500 mg tablet 1,000 mg PO TID tab 09/25/19 psyllium husk 0.4 gram capsule 0.4 g PO DAILY PRN 09/25/19 oxybutynin chloride 10 mg tablet,extended release 24 hr 10 mg PO DAILY tab 03/28/20 Clopidogrel Bisulfate [Plavix] 75 mg PO DAILY #30 tab 05/02/20 Following Prescriptions Were Given to Patient: Clopidogrel Bisulfate [Plavix] 75 mg PO DAILY #30 tab Transmission Status: Pending to [facility] Primary Care Physician: Adrian Galeana MD [Primary Care Provider] - Please follow up with your Primary Care Physician in: In 1 to 2 weeks Please Follow Up With: Bryan Osman MD When: in 2-4 weeks Medical Necessity - Tobacco Use Smoking Status: Never smoker Tobacco Use: Non-smoker Meaningful Use Info Meaningful Use Diagnoses (Choose all that apply): None applicable OBSV E&M: 42829 Observation care discharge
== END 2020-05-02 16:58 | disposition home or self-care (01) ==
LOC: ED 14:06 → PCU 15:31
PROVIDERS: Admitting Provider Family Medicine; Emergency Provider Emergency Medicine; PCP Internal Medicine; Visit Provider Internal Medicine
DX: G45.9 Transient cerebral ischemic attack, unspecified (principal); K21.9 Gastro-esophageal reflux disease without esophagitis; E78.5 Hyperlipidemia, unspecified; I10 Essential (primary) hypertension; I25.10 Atherosclerotic heart disease of native coronary artery without angina pectoris; N40.0 Benign prostatic hyperplasia without lower urinary tract symptoms; J45.909 Unspecified asthma, uncomplicated; Z79.899 Other long term (current) drug therapy; Z79.82 Long term (current) use of aspirin; R29.810 Facial weakness; M19.90 Unspecified osteoarthritis, unspecified site; R47.01 Aphasia
CPT/HCPCS: 70450; 70544; 70547; 70551; 71045; 80053; 80061; 81001; 82962; 83036; 83735; 84443; 84484; 85025; 92610; 93005; 93306; 94762; 96360; 96361; 96372; 97162; 97802; 99218; 99251; 99285; J7030; A4216; G0378; G0463

== ENCOUNTER 2020-05-13 16:12 | Outpatient (RCR) | payer MEDICARE, SELFPAY ==
[2017-08-09 09:27] VITALS: BMI 24.3
[2020-05-11 10:22] VITALS: BMI 24.2
== END 2020-05-13 23:59 ==
LOC: IMMUN 16:12
PROVIDERS: PCP Internal Medicine; Visit Provider Family Medicine
DX: Z23 Encounter for immunization (principal)
CPT/HCPCS: 0011A; 0012A; 91301

== ENCOUNTER → 2020-07-01 07:11 | Outpatient (CLI) | payer MEDICARE, SELFPAY ==
[2017-08-09 09:27] VITALS: BMI 24.3
[2020-06-02 09:08] VITALS: BMI 25.2
--- NOTE | 2020-07-01 16:38 | STRESSREP_ITS ---
Stress Test Report Pharmacologic myocardial perfusion stress test. 84-year-old man with a history of wide-complex tachycardia. Medications aspirin, metoprolol, atorvastatin, lisinopril. Stress protocol: Resting EKG demonstrates normal sinus rhythm with a rate of 56 bpm normal intervals are noted resting blood pressure is 118/80 mmHg. 0.4 mg of regadenos on was infused per usual protocol followed by rapid intravenous saline flush injection continuous EKG monitoring was performed. The maximum heart rate attained was 84 bpm which is 60% of max impacted heart rate. The maximum workload was 1 metabolic equivalent. At rest there were no ST or T wave changes noted to suggest ischemia. At peak infusion nonspecific ST changes were noted. The peak blood pressure was 120/66 mmHg. Myocardial perfusion protocol. 11.1 mCi of technetium 99m sestamibi was injected at rest. 0.4 mg of regadenoson was infused per usual protocol. At peak infusion 31.8 mCi of technetium 99m sestamibi was injected stress images were obtained stress and rest images were reconstructed and compared in the short axis vertical long horizontal long axis. Gated images were also obtained. Perfusion SPECT analysis: Review of the images demonstrate a normal cardiac silhouette size. There is a medium size defect noted in the distal anterolateral wall which is present on th e stress images. The septum apex and inferior wall appear to be well perfused. The resting images demonstrate a similar pattern suggestive of a previous distal anterolateral infarct. No obvious ischemia is noted. Gated SPECT analysis: The gated ejection fraction is 63%. 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 No ischemia noted.
== END ==
PROVIDERS: PCP Internal Medicine; Referring Provider Internal Medicine Cardiovascular Disease; Visit Provider Internal Medicine Cardiovascular Disease
DX: I25.10 Atherosclerotic heart disease of native coronary artery without angina pectoris (principal); I47.2 Ventricular tachycardia; Z95.5 Presence of coronary angioplasty implant and graft
CPT/HCPCS: 78452; 93017; A9500; A4216; J2785

== ENCOUNTER 2021-06-21 11:04 | Emergency (ER) | payer MEDICARE, SELFPAY ==
[2017-08-09 09:27] VITALS: BMI 24.3
[2021-06-21 11:06] VITALS: BP 111/59; PULSE 78; RESP 17; TEMP 35.9; O2SAT 100; BMI 24.8
--- NOTE | 2021-06-21 11:47 | VDLE_ITS ---
Reason For Study: Pain RIGHT GSV is normal. CFV is compressible, spontaneous, phasic, competent and demonstrates normal augmentation. FV is compressible, spontaneous, phasic, competent and demonstrates normal augmentation. POP V is compressible, spontaneous, phasic, competent and demonstrates normal augmentation. T/P Trunk is compressible. PTV is compressible. RT PerV is compressible. Procedure This is a venous duplex using B-mode, color flow and spectral Doppler. Exam performed portable in ED. FV mid-distal and PeroV are visualized with color only, patient unable to tolerate compression. A preliminary report was called and/or faxed to ED. VL/Venous Duplex US, Unilateral Interpretation Summary There is no evidence of right lower extremity deep vein thrombosis. Right great saphenous vein appears patent and compressible segmentally. Please refer to limitation of inab ility to compress Ordering Physician: Taya Oshea Referring Physician: Adrian Galeana M.D. Performed By: Lotus Avila RVT
--- NOTE | 2021-06-21 11:57 | EDS_ITS ---
HPI History of Present Illness Chief Complaint: Lower Extremity Injury Informant: patient and family Narrative Narrative: Patient is an 85-year-old male that is 8 days postop from right total knee performed by Dr. Armenta at [facility]. He has been doing his physical therapy. He is presenting today for concerns of increased bruising of his legs, redness of his surgical site and swelling of his lower extremity. He was noted to have some redness of his knee around the incision sites and the areas were marked. Over the past few days he has had increased pain in his knee and he started to have increased redness of his medial thigh. That is tender. Patient is only on 1000 mg of Tylenol every 8 hours because the pain pills, oxycodone, were making him too sleepy and he could not do any physical therapy. No report of any fever. No report of any falls or new trauma. No other complaints at this time. Patient is usually on Eliquis for history of atrial fibrillation. [facility] Medical History (Updated 06/21/21 @ 14:[address] 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 BPH (benign prostatic hyperplasia) Chronic asthma DDD (degenerative disc disease), lumbar Essential (primary) hypertension Gastritis GERD (gastroesophageal reflux disease) HLD (hyperlipidemia) Osteoarthritis Osteoarthritis of right knee TIA (transient ischemic attack) (04/2020) Ventricular tachycardia Home Medications aspirin 81 mg PO DAILY@0800 06/07/13 [History Last Taken 05/01/20] metoprolol tartrate 12.5 mg PO BID 06/07/13 [History Last Taken 05/01/20] fluticasone propionate 1 spray NS QHS PRN 11/11/14 [History Last Taken 04/30/20] finasteride 5 mg PO DAILY 08/08/17 [History Last Taken 05/01/20] atorvastatin 80 mg tablet 80 mg PO QHS #90 tab 09/10/17 [Rx Last Taken 04/30/20] lisinopril 5 mg tablet 5 mg PO DAILY #90 tab 09/10/17 [Rx Last Taken 05/01/20] acetaminophen 500 mg tablet 1,000 mg PO TID tab 09/25/19 [History Last Taken 05/01/20] psyllium husk 0.4 gram capsule 0.4 g PO DAILY PRN 09/25/19 [History Last Taken Unknown] nitroglycerin 0.4 mg sublingual tablet 0.4 mg SUBLINGUAL Q5M PRN #25 tab 09/01/20 [Rx Last Taken Unknown] zonisamide 100 mg capsule 200 mg PO QHS cap 01/16/21 [History Last Taken Unknown] apixaban 5 mg tablet 5 mg PO BID #60 tab 06/05/21 [Rx Last Taken Unknown] cholecalciferol (vitamin D3) 25 mcg PO DAILY 06/21/21 [History Last Taken Unknown] docusate sodium 50 mg PO BID 06/21/21 [History Last Taken Unknown] doxycycline hyclate 100 mg PO BID #20 tab 06/21/21 [Rx Last Taken Unknown] hydrocodone-acetaminophen 1 tab PO Q6H PRN 3 Days #12 tab 06/21/21 [Rx Last Taken Unknown] mirabegron 50 mg PO DAILY 06/21/21 [History Last Taken Unknown] oxycodone 5 - 10 mg PO Q4H PRN 06/21/21 [History Last Taken Unknown] Allergy/AdvReac Type Severity Reaction Status Date / Time Penicillins Allergy Hives Verified 06/21/21 11:05 levetiracetam [From Kera] AdvReac unknown Verified 06/21/21 11:05 antihistamines AdvReac unknown Uncoded 06/21/21 11:05 Family History Mother CHF (congestive heart failure) Brother Myocardial infarction Sister CHF (congestive heart failure) Brother Heart disease Surgical History (Updated 06/21/21 @ 12:03 by Cary Waddell) History of coronary artery stent placement (08/08/17) History of right knee joint replacement History of rotator cuff surgery (2008) Hx of transurethral resection of prostate (11/19/14) Social History Smoking Status: Never smoker alcohol intake: never substance use type: does not use caffeine: No ROS ROS ED Constitutional Constitutional ED: Denies chills or fever(s) Eyes Eyes: Denies change in vision ENT ENT ED: Denies rhinorrhea Cardiovascular Cardiovascular: Denies chest pain or palpitations Respiratory/Chest Respiratory/Chest: Denies cough or dyspnea Gastrointestinal Gastrointestinal: Reports constipation; Denies abdominal pain, nausea or vomiting Genitourinary Genitourinary ED: Denies dysuria Musculoskeletal Musculoskeletal: Reports other Details: Right knee pain, right leg swelling ; Denies arthralgias or myalgias Integumentary Reports rash; Denies abscess or Abrasions Neurologic Neurologic: Denies headache(s), paresthesias or weakness Psychiatric Psychiatric: Denies depression EXAM Physical Exam Const Vital Signs: 06/21/21 11:06 Temperature 96.6 F L Temperature Source Temporal Pulse Rate 78 Respiratory Rate 17 Blood Pressure 111/59 L Blood Pressure Mean 76 Pulse Ox 100 Oxygen Delivery Method Room Air Positive well nourished and well developed General Appearance ED: well developed HEENT normocephalic and atraumatic Eyes PERRL Neck full ROM and supple Chest Wall inspection of chest normal Resp normal respiratory effort and clear to auscultation bilaterally Cardio regular rate and regular rhythm Cardio Narrative: 2+ bilateral DP pulses GI non-tender and non-distended Palpation: soft Extremity Extremity Narrative: 2+ pitting edema up to the knees of the right lower extremity. Surgical incision of the right anterior knee as well as right distal kramer. Decreased range of motion however this is consistent with his postoperative status. Questionable effusion of the knee appreciated. Neuro oriented x3 and moves all extremities Sensorium / Orientation: alert Motor Exam: strength 5/5 throughout; Negative for general weakness Psych mental status grossly normal Skin Skin Narrative: Erythema and warmth of the right anterior knee with lymphangitic streaking about longterm up the mid thigh. No drainage appreciated. [place] in place over anterior knee incision and anterior distal tibial incision. Nontender ecchymosis over entire posterior right lateral thigh and right posterior ankle MDM MDM MDM Narrative Medical decision making narrative: Patient evaluated for worsening redness and discomfort of his right lower extremity. He is 8 days postop from a right TKA. He has been doing his physical therapy. He is now having bruising on his thigh and lower leg was if it was concerned of as well as increased redness around his knee and going up his medial thigh. Exam is more concerning for cellulitis of the leg. He is on Eliquis but a venous duplex ultrasound was obtained which not show any acute DVT. He has a mild leukocytosis of 12.6 but no other sirs criteria. His CRP is 65.2 and his ESR is 29. He has a mild anemia of 10.7. Case discussed with his orthopedic surgeon, Dr. Armenta, and I sent Dr. Armenta picture of the patient's leg. He suspects this is cellulitis and not a deep space infection based on the laboratory findings, his clinical picture and the skin exam. Would like to try oral antibiotics and follow closely in the office. Patient is started on doxycycline and given first dose in the emergency room. He is given a prescription for [place] in the ER which he seemed to tolerate well and was not too sedating. Family is requesting a prescription for this instead of the oxycodone. I will write the patient short course and his orthopedist can follow-up if he needs more. Lab Data Attestation: I reviewed the patient's lab results. Labs: Laboratory Results - last 24 hr 06/21/21 06/21/21 06/21/21 12:00 12:00 12:00 WBC 12.6 H RBC 3.56 L Hgb 10.7 L Hct 33.2 L MCV 93.3 MCH 30.1 MCHC 32.2 RDW Std Deviation 41.8 RDW Coeff of Shelia 12.2 Plt Count 434 MPV 8.7 Immature Gran % (Auto) 1.000 H Neut % (Auto) 83.3 H Lymph % (Auto) 3.9 L Heard % (Auto) 10.0 Eos % (Auto) 1.5 Baso % (Auto) 0.3 Absolute Neuts (auto) 10.5 H Absolute Lymphs (auto) 0.49 L Nucleated RBC % 0 ESR 29 H PT 16.9 H INR 1.4 APTT 37.1 H Sodium 137 Potassium 4.4 Chloride 109 H Carbon Dioxide 23.0 Anion Gap 5 BUN 21 H Creatinine 0.83 Estim Creat Clear Calc 56.47 Est GFR (MDRD) Af Amer 114 Est GFR (MDRD) Non-Af 94 BUN/Creatinine Ratio 25.3 H Glucose 105 Calcium 9.3 C-React Prot Ext Range 65.20 H Radiography Diagnostic Testing: Clinical Impression(s) from Imaging Studies Venous Doppler Study 06/21/21 11:47 Interpretation Summary There is no evidence of right lower extremity deep vein thrombosis. Right great saphenous vein appears patent and compressible segmentally. Please refer to limitation of inability to compress Ordering Physician: Taya Oshea Referring Physician: Adrian Galeana M.D. Performed By: Lotus Avila RVT Discharge Plan Triage Chief Complaint: Lower Extremity Injury ED Provider: Taya Oshea Dx/Rx/DC Orders Clinical Impression: Cellulitis of right lower extremity, Postoperative edema Instructions: ED Cellulitis Prescriptions: New doxycycline hyclate 100 mg tablet 100 mg PO BID Qty: 20 RF: 0 hydrocodone-acetaminophen 5-325 mg tablet 1 tab PO Q6H PRN (Reason: pain) 3 Days Qty: 12 RF: 0 No Action psyllium husk [Metamucil] 0.4 gram capsule 0.4 g PO DAILY PRN (Reason: Constipation) RF: 0 nitroglycerin 0.4 mg tablet, sublingual 0.4 mg SUBLINGUAL Q5M PRN (Reason: Chest Pain) Qty: 25 RF: 3 zonisamide 100 mg capsule 200 mg PO QHS RF: 0 aspirin 81 MG tablet,chewable 81 mg PO DAILY@0800 RF: 0 metoprolol tartrate 25 MG tablet 12.5 mg PO BID RF: 0 acetaminophen 500 mg tablet 1,000 mg PO TID RF: 0 fluticasone propionate 9.9 ML spray,suspension 1 spray NS QHS PRN (Reason: Nasal Congestion) RF: 0 finasteride 5 MG tablet 5 mg PO DAILY RF: 0 docusate sodium 50 mg Capsule 50 mg PO BID RF: 0 oxycodone 5 mg Tablet 5 - 10 mg PO Q4H PRN (Reason: Pain) RF: 0 cholecalciferol (vitamin D3) 25 mcg (1,000 unit) Capsule 25 mcg PO DAILY RF: 0 mirabegron 50 mg Tablet Extended Release 24 Hr 50 mg PO DAILY RF: 0 atorvastatin 80 mg tablet 80 mg PO QHS Qty: 90 RF: 4 lisinopril 5 mg tablet 5 mg PO DAILY Qty: 90 RF: 4 Eliquis 5 mg tablet 5 mg PO BID Qty: 60 RF: 11 Primary Care Provider: Adrian Galeana Referrals: Earl Armenta MD [STAFF PHYSICIAN] - 2 Days for wound check Adrian Galeana MD [Primary Care Provider] - Activity Restrictions/Additional Instructions: Return if you have increased pain in your knee, high fevers refill here getting worse despite being on antibiotics. Make sure you are taking laxative such as senna daily to help with opioid-induced constipation. You have been prescribed a new pain medication which hopefully will be less sedating. It does have Tylenol in it so take that into account if you are also taking Tylenol. Disposition Disposition: Home, Self Care
[2021-06-21] MEDS: HYDROcodone Bitartrate/Apap 5/325 Tablet PO (12:07)
[2021-06-21 12:42] LABS: Erythrocyte Sedimentation Rate 29 mm/hr (0-20)
[2021-06-21 12:44] LABS: Anion Gap 5 (5-15); BUN 21 mg/dL (7-18); BUN/Creat Ratio 25.3 RATIO (10-20); Calcium,Total 9.3 mg/dL (8.5-10.1); Chloride 109 mmol/L (98-107); Creatinine, Serum 0.83 mg/dL (0.70-1.30); EST Glomerular Filtration Rate 94 mL/min (>60); Est Glom Filt Rate - Afr Amer 114 mL/min (>60); Estimated Creatinine Clearance 56.47 ml/min; Glucose 105 mg/dL (74-106); Potassium 4.4 mmol/L (3.5-5.1); Sodium Level 137 mmol/L (136-145)
[2021-06-21 13:08] LABS: Absolute Lymphocyte Count 0.49 X10^3/uL (0.83-4.51); Absolute Neutrophil Count 10.5 X10^3/uL (2.0-7.7); Basophil# 0.04 X10^3/uL; Basophil% 0.3 % (0-1); Eosinophil# 0.19 X10^3/uL; Eosinophils% 1.5 % (0-5); Hematocrit 33.2 % (40-54); Hemoglobin 10.7 g/dL (13.0-16.5); Lymphocyte # 0.49 X10^3/ul (0.83-4.51); Lymphocyte % 3.9 % (19-41); Mean Corp Hgb Conc 32.2 g/dL (32-36); Mean Corpuscular Hgb 30.1 pg (27.0-32.0); Mean Corpuscular Volume 93.3 fL (80-94); Mean Platelet Vol. 8.7 fl (6.2-12.0); Monocyte# 1.26 X10^3/uL; NRBC Flagged by Analyzer 0 % (0-5); Neutrophil # 10.53 X10^3/uL (2.7-7.7); Neutrophil % 83.3 % (47-70); POSITIVE DIFFERENTIAL YES; Platelet Count 434 K/mm3 (150-450); RBC Distribution Width CV 12.2 % (11.6-14.6); RBC Distribution Width SD 41.8 fl (35.1-43.9); Red Blood Count 3.56 M/mm3 (4.6-6.2); White Blood Count 12.6 K/mm3 (4.4-11.0)
[2021-06-21 13:11] LABS: Differential Indicated SCAN CRITERIA MET
[2021-06-21 13:14] LABS: International Normalized Ratio 1.4; Prothrombin Time (Protime)PT. 16.9 SECONDS (11.7-14.9)
[2021-06-21 13:15] LABS: Partial Thromboplast Time 37.1 Seconds (24.1-36.2)
[2021-06-21] MEDS: Doxycycline 100 MG CAPSULE PO (15:09)
== END 2021-06-21 15:27 | disposition home or self-care (01) ==
PROVIDERS: Emergency Provider Emergency Medicine; PCP Internal Medicine; Visit Provider Emergency Medicine
DX: T81.41XA Infection following a procedure, superficial incisional surgical site, initial encounter (principal); L03.115 Cellulitis of right lower limb; I10 Essential (primary) hypertension; E78.5 Hyperlipidemia, unspecified; D64.9 Anemia, unspecified; I25.10 Atherosclerotic heart disease of native coronary artery without angina pectoris; J45.909 Unspecified asthma, uncomplicated; N40.0 Benign prostatic hyperplasia without lower urinary tract symptoms; M51.36 Other intervertebral disc degeneration, lumbar region; Z87.19 Personal history of other diseases of the digestive system; K21.9 Gastro-esophageal reflux disease without esophagitis; M17.11 Unilateral primary osteoarthritis, right knee; Z86.73 Personal history of transient ischemic attack (TIA), and cerebral infarction without residual deficits; Z79.82 Long term (current) use of aspirin; Z79.899 Other long term (current) drug therapy; Z79.01 Long term (current) use of anticoagulants; Z95.5 Presence of coronary angioplasty implant and graft
CPT/HCPCS: 80048; 85025; 85610; 85652; 85730; 86140; 87040; 93971; 99285; A4216

== ENCOUNTER → 2023-03-21 | Outpatient (CLI) | payer MEDICARE, SELFPAY ==
[2017-08-09 09:27] VITALS: BMI 24.3
[2023-03-21 10:38] LABS: PSA,Total- Diagnostic 1.38 ng/mL (0.0-4.0)
== END | disposition home or self-care (01) ==
PROVIDERS: PCP Internal Medicine; Referring Provider Urology; Visit Provider Urology
DX: N40.1 Benign prostatic hyperplasia with lower urinary tract symptoms (principal)
CPT/HCPCS: 36415; 84153

== ENCOUNTER → 2023-11-01 | Outpatient (CLI) | payer MEDICARE, SELFPAY ==
[2017-08-09 09:27] VITALS: BMI 24.3
--- NOTE | 2023-11-01 13:44 | ST.MBS ---
Modified Barium Swallow Patient Information Study Date: 11/01/23 Study Time: 13:00 Direct Billable Minutes: 88 Total Minutes procedure & reportin Diagnosis: Dysphagia R13.10 Referring Physician: Adrian Galeana Reason for Referral: Objectively assess swallow function, assess risk for aspiration, and determine recommendations for least restrictive diet textures and compensatory strategies to improve safety of swallow. Medical History: PMH: Early stage Parkinson's diagnosis (diagnosed 1-2 years ago per ), Allergic rhinitis, Asthma, Atherosclerosis of coronary artery without angina pectoris, BPH, DDD, HTN, Gastritis, GERD, HLD, Osteoarthritis, TIA (04/2020), Ventricular tachycardia. Pt was referred for ST consult due to sensation of something caught in his throat throughout the day with intermittent pain during the swallow, especially if leaning forward. This sensation has occurred for the past 3-4 weeks. He reports occ coughing when eating/drinking. He was referred for MBSS to assess swallow function and risk for aspiration. Current Diet Ordered: Regular textures / Thin liquids Dentition: WNL and Natural Teeth Mental Status: WNL Respiratory Status: Oxygenating on Room Air Penetration-Aspiration Scale Penetration-Aspiration Scale: OBJECTIVE ASSESSMENT OF SWALLOW FUNCTION (QUANTITATIVE ? PER TRIAL): PENETRATION / ASPIRATION SCALE (LOOMIS): 1 = does not enter airway 2 = enters airway/above vocal folds/ejected 3 = enters airway/above vocal folds/not ejected 4 = enters airway/contacts vocal folds/ejected 5 = enters airway/contacts vocal folds/not ejected 6 = enters airway/below vocal folds/ejected 7 = enters airway/below vocal folds/not ejected despite effort 8 = enters airway/below vocal folds/no effort VIDEOFLOROSCOPIC SCALE SCORE (LOOMIS): Grade I = aspiration of material that has penetrated into the laryngeal vestibule, intact cough reflex Grade II = aspiration < 10 % of the bolus, intact cough reflex Grade III = aspiration of < 10 % of the bolus, reduced cough reflex or aspiration of > 10 % of the bolus, intact cough reflex Grade IV = aspiration of > 10 % of the bolus, reduced cough reflex Oral Phase Labial Seal: Interlabial escape, no progression to anterior lip Tongue Control During Bolus Hold: Posterior escape of less than half of bolus Bolus Preparation/Mastication: Timely and efficient chewing and mashing Bolus Transport/Lingual Motion: Delayed initiation of tongue motion Oral Residue: Majority of bolus remaining (piecemeal deglutition ) Pharyngeal Phase Initiation of Pharyngeal Swallow: Bolus head at posterior laryngeal surgace of epiglottis Soft Palate Elevation: Trace column of contrast/air between soft palate and pharyngeal wall Laryngeal Elevation: Comp. Superior move thyroid cart w/comp. apprx arytenoid cart-epig pet Anterior Hyoid Excursion: Complete anterior movement Epiglottic Movement: Complete inversion Laryngeal Vestibule Closure at Height of Swallow: Incomplete; narrow column of air/contrast in laryngeal vestibule Pharyngeal Stripping Wave: Present - diminished Pharyngoesophageal Segment Opening: Parital distension and partial duration; parital obstruction of flow Tongue Base Retraction: Narrow column of contrast between tongue base & post. pharyngeal wall Pharyngeal Residue: Collection of residue within or on pharyngeal structures Esophageal Phase Esophageal Clearance: Esophageal retention (trace in UES) Diagnosis/Impression Diagnosis: Mild oropharyngeal dysphagia R13.12 Impression: The oral phase is primarily marked by.. -Decreased bolus control evidenced by posterior loss of <1/2 the bolus to the posterior surface of the epiglottis prior to swallow onset. -Piecemeal deglutition of pudding and cookie with good oral clearance with independent initiation of second swallows as needed to clear oral residues. The pharyngeal phase is primarily marked by... -Mild pharyngeal residue with pudding and cookie due to decreased tongue base retraction and pharyngeal stripping wave. -Trace residues in the UES due to partial UES opening/duration and presence of a small cricopharyngeal (CP) bar at the level of C5-C6. CP bar did not appear to have much impact on bolus clearance through the UES. No aspiration was observed. Only trace laryngeal penetration with full ejection of sequential sips of thin liquids. Recommendations Diet: Regular Textures and Thin Liquids Compensatory Strategies: Small Bites, Small Sips, Slow Rate, Sitting upright and Remain sitting upright for 30 minutes after PO intake Recommend Repeat Modified Barium Swallow: TBD (Pt's swallow function is at risk to decline given diagnosis of PD. Please re-consult for MBSS if increased s/s of aspiration consuming food/drink.) Need for Skilled Speech Therapy Services: Yes Comment: Pt's swallow function is at risk to decline secondary to diagnosis of Parkinson's disease. IT OPERATIONS MANAGER recommended brief OP ST POC to learn prophylactic oropharyngeal exercise program to address mild oropharyngeal deficits (lingual control, TB retraction, pharyngeal contraction, UES opening/duration) and promote maintaining optimal swallow function (Lingual resistance, Jennifer, Effortful, Yawn stretch). Recommended Referrals: ENT Consult (Due to intermittent pain and sensation of something caught in throat throughout the day, which just began 3-4 weeks prior to this MBSS) Education Completed: 1. Described result of evaluation., 2. Pt understands evaluation & agrees with goals and treatment plan. and 4. Family/caregivers understand evaluation & agree w/ goals & tx plan. Status Active ST Patient: Active Contact Information [facility] Speech [facility]:: Shazia Caba M.A. CCC-IT OPERATIONS MANAGER? Speech-Language Pathologist?? [facility] [address] [place] [address]? [email or web address]?? [phone]
== END | disposition home or self-care (01) ==
LOC: RAD 12:36
PROVIDERS: PCP Internal Medicine; Referring Provider Internal Medicine; Visit Provider Internal Medicine
DX: R13.13 Dysphagia, pharyngeal phase (principal)
CPT/HCPCS: 74230; 92611

== ENCOUNTER → 2023-11-19 | Outpatient (CLI) | payer MEDICARE, SELFPAY ==
[2017-08-09 09:27] VITALS: BMI 24.3
--- NOTE | 2023-11-19 10:10 | RAD_ITS ---
INDICATION: Inspiratory Crackles -- chest pain EXAMINATION/TECHNIQUE: X-RAY - XR Chest 2 Views COMPARISON: 05/01/2020. FINDINGS: 8 mm pulmonary nodule versus nipple shadow in the right lung base. Tortuous and calcified thoracic aorta. The heart is borderline enlarged. No pleural effusion or pneumothorax. Degenerative changes of the thoracic spine. RAD/Chest PA and Lateral IMPRESSION: 8 mm pulmonary nodule versus nipple shadow in the right lung base. Recommend repeat radiographs with nipple markers. Electronically Signed: Dustin Woody MD at 17:09 EDT ,
[2023-11-19 10:50] LABS: Absolute Lymphocyte Count 1.23 X10^3/uL (0.83-4.51); Absolute Neutrophil Count 5.1 X10^3/uL (2.0-7.7); Basophil# 0.03 X10^3/uL; Basophil% 0.4 % (0-1); Eosinophil# 0.18 X10^3/uL; Eosinophils% 2.4 % (0-5); Hematocrit 42.7 % (40-54); Hemoglobin 13.4 g/dL (13.0-16.5); Lymphocyte # 1.23 X10^3/ul (0.83-4.51); Lymphocyte % 16.2 % (19-41); Mean Corp Hgb Conc 31.4 g/dL (32-36); Mean Corpuscular Hgb 29.8 pg (27.0-32.0); Mean Corpuscular Volume 95.1 fL (80-94); Mean Platelet Vol. 9.3 fl (6.2-12.0); Monocyte# 0.96 X10^3/uL; Monocyte% 12.6 % (0-10); NRBC Flagged by Analyzer 0 % (0-5); Neutrophil # 5.11 X10^3/uL (2.7-7.7); Neutrophil % 67.3 % (47-70); Platelet Count 237 K/mm3 (150-450); RBC Distribution Width CV 12.5 % (11.6-14.6); RBC Distribution Width SD 43.4 fl (35.1-43.9); Red Blood Count 4.49 M/mm3 (4.6-6.2); White Blood Count 7.6 K/mm3 (4.4-11.0)
[2023-11-19 11:27] LABS: BNP,B-Type NATRIURETIC PEPTIDE 68.3 pg/mL (0-100)
[2023-11-19 11:32] LABS: Anion Gap 4 (5-15); BUN 16 mg/dL (7-18); BUN/Creat Ratio 18.1 RATIO (10-20); Calcium,Total 8.9 mg/dL (8.5-10.1); Chloride 110 mmol/L (98-107); Creatinine, Serum 0.89 mg/dL (0.70-1.30); EST Glomerular Filtration Rate 87 mL/min (>60); Est Glom Filt Rate - Afr Amer 105 mL/min (>60); Glucose 72 mg/dL (74-106); Potassium 4.5 mmol/L (3.5-5.1); Sodium Level 140 mmol/L (136-145)
== END | disposition home or self-care (01) ==
PROVIDERS: PCP Internal Medicine; Referring Provider Nurse Practitioner Family; Visit Provider Nurse Practitioner Family
DX: Z95.5 Presence of coronary angioplasty implant and graft (principal); I48.92 Unspecified atrial flutter; I10 Essential (primary) hypertension; E78.5 Hyperlipidemia, unspecified; R06.09 Other forms of dyspnea
CPT/HCPCS: 36415; 71046; 80048; 83880; 85025

== ENCOUNTER → 2024-01-03 | Outpatient (CLI) | payer MEDICARE, SELFPAY ==
[2017-08-09 09:27] VITALS: BMI 24.3
--- NOTE | 2024-01-03 11:53 | RAD_ITS ---
STUDY: X-RAY CHEST REASON FOR EXAM: Male, 88 years old. Abnormal Chest x-ray -- Please use Nipple Markers TECHNIQUE: Frontal and lateral views of the chest. COMPARISON: 11/19/2023. FINDINGS: The lungs are clear and expanded. Mild fibrotic changes in the lung bases. Nipple markers correspond to the density seen on prior exam. No suspicious nodules are seen. There is no demonstrated pleural abnormality. Normal size heart. Normal mediastinum and natali. Normal visualized pulmonary arteries. There is atherosclerotic tortuosity of the aortic arch and descending thoracic aorta. Normal visualized thoracic spine. Normal visualized ribs, clavicles, and shoulders. There is no demonstrated abnormality of the visualized soft tissue structures of the upper abdomen. RAD/Chest PA and Lateral IMPRESSION: No acute chest disease. No evidence for nodules. Electronically Signed: Jeff Brand MD at 23:42 EDT ,
== END | disposition home or self-care (01) ==
LOC: RAD 11:49
PROVIDERS: PCP Internal Medicine; Referring Provider Nurse Practitioner Family; Visit Provider Nurse Practitioner Family
DX: R93.89 Abnormal findings on diagnostic imaging of other specified body structures (principal)
CPT/HCPCS: 71046